=== PATIENT | male | born 1940 | race Caucasian/White ===

== ENCOUNTER 2019-09-16 09:30 | Outpatient (AMB) | payer MEDICARE, MEDICAID, SELFPAY ==
[2019-09-16 09:30] VITALS: BMI 20.9
--- NOTE | 2019-09-16 09:30 | CWCCLIPHA ---
Review of Systems Const Constitutional: Reports daytime sleepiness, Reports difficulty sleeping and Reports lethargy Resp Respiratory: Reports cough and Reports excessive phlegm production GI Gastrointestinal: Reports loose stools Genitourinary: Reports penile discharge and Reports other (redness to penis) Skin/Breast Skin/Breast: Reports lesions, Reports nail changes and Reports redness Psych Psychiatric: Reports abnormal sleep pattern, Reports anxiety and Reports panic attacks Exam Const General: cooperative Orientation: alert Neuro General: patient alert Cognition: normal cognition Speech: speech normal Psych Mood: congruent mood Affect: normal affect Speech and Movement: speech and movement normal Attitude: cooperative Thought Process: normal Thought Content: normal Judgment: judgment good Supplemental Info Assessment and Plan: 1. Oropharyngeal CA, recurrence. Patient and 's understanding of state of disease and treatment contradictory to findings in 07/16/2019 PET scan as well as Dr. Thomas's most recent progress note. Read select PET findings, including smaller measurements of mass as well as finding of more subtle diffuse hypermetabolic activity in oropharynx as well as Dr. Thomas's plan to continue Keytruda. became emotional at hearing the PET findings and was supported by RESEARCH FELLOW (please see RESEARCH FELLOW notes for additional discussion). Dr. eRynoso provided expectations for good treatment response based on previous treatment response but no definite range of life expectancy. Recommended contact JENY Robles, to discuss missed Keytruda doses and scheduling. Encouraged to contact Palliative team if she needed help interpreting patient's results or treatment plan as complained of receiving limited or complex medical information. Provide informational and emotional support as needed. 2. Excessive phlegm production, cough. Chronic. Patient is expectorating phlegm with difficulty which is causing distress and anxiety leading to semi-frequent panic attacks at a rate of 2 episodes every other night and inducing insomnia. Patient has not been utilizing suctioning and has nocturnal O2 which needs to be set up. has an appointment for assistance with O2 setup. denies having access to an RT at this time. Contacted Germán Butcher RCP, for a consultation for effective cough or suctioning technique; awaiting response. 3. Need to for clarification on medications. Patient's reported a refill of Clindamycin for unknown indications as well as confusion on treatment plan for genital redness and discharge. Medical records obtained from [facility] state Clindamycin was re-ordered for oral cellulitis (lips) and fluconazole PO and ketoconazole topical for balanitis. Relayed findings to Thu via phone. 4. Malignant pain. Controlled on MSO4 drops. Continue current management. 5. Pedal rash. Improving. Currently on silver sulfadiazine and mupirocin creams as well as zinc and vitamin C. Defer management to podiatry and PCP. 6. Nocturnal heartburn. Resolved with reduction of volume of free water per GT infusion session from 1 full to 0.5 bag (0.5 Liter). See RD notes for additional discussion. 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 Felton is a 79 YO M who is on a telephone encounter today with his , Thu, for routine Palliative Care follow-up. The patient states about a month ago his G-tube came out and it was replaced at the ED. He now has continuous pain and a red area the size of a half-dollar around his G-Tube site with a small amount of bloody discharge. Thu states she needs to make an appointment with the surgeon, Dr. Vasquez, to look at the G-Tube area, but he is only in the office on Fridays. He states he has been using morphine drops for pain and that it has been effective. Patient states that he has developed a hernia to the right of the G-tube site from coughing, which has not yet been evaluated. He last saw his PCP last week and was given fluconazole tablets, a refill on clindamycin 300mg and ketoconazole cream. Thu states she does not know what they are for, but she was told he has an infection in his whole body and that his penis is very red and swollen. She states they were told it was a diaper rash from wearing incontinence briefs. The patient states that there is copious discharge from the penile skin and denies the discharge being urinary incontinence. Thu states she was also instructed to steel pickler Zinc and Vitamin C. She states they are also expecting a nebulizer for albuterol and they have an oxygen source for nighttime use but someone is coming out to show her how to set it up. She states she is now exchanging the patient's trache canula BID and she is repeatedly being sent the wrong cannula. She states concern that reusing the same two cannulas is weakening them. She states she sent a photo of the correct cannula to the [employer] today. She states the patient has been loosing his finger and toe nails which is being attributed to Keytruda. She states the sores on the bottom of the patient's feet are healing under the care of a u.s. representative and there are now just a couple of spots. The patient c/o copious amounts of phlegm that he is able to bring up with difficulty which causes him distress. He states he is afraid to go to sleep because of these cough attacks, which occur about 2 times every other night. The patient states that coughing up mucus accounts for 90% of his problems sleeping. Thu states the patient has been wanting her home alot. Thu states that she had not been recently using suctioning but is considering returning to it to help with the patient's phlegm. The patient denies heartburn, nausea and constipation. He states his stools have been loose. Thu states she has divided his free water hydration to 1/2 bag (0.5 L) TID with his medications. Thu states the patient has been sleeping alot. She states she was not able to present at the last encounter at the [facility] and understands that the lung nodules are shrinking but she and the patient state the one in his neck is growing. She tried to discuss the patient's missed Keytruda doses at the [facility] but was told he is done with treatment. The patient wants to know how long his life expectancy is for his decision making. The patient states he has been using his Morphine drops and they are working. Medication and Supplements Medication and Supplements: Clindamycin 300mg TID Fluconazole 200mg QD Ketoconazole cream Keytruda Lactulose 10g/15mL 15-30mL via GT QD PRN constipation Lidocaine cream Mupirocin 2% topical Prednisone 5mg 4 TS QD (was on 8 TS QD, started 07/20/19) Prednisone 20mg 2 T QD x 4 days (08/03/19) Silver sufadiazine cream AAA on feet Vitamin C Zinc Prescribed, not using: IBU 100mg/5mL 30mL via GT Q6H PP *CWC Office Visit complete CWC Offive Visit Complete CWC Visit Complete?: No
--- NOTE | 2019-09-16 09:31 | CWCCLINC_ITS ---
Vital Signs 09/16/19 09:30 Height 1.91 m Height Method Stated Weight 76.204 kg Weight Measurement Method Stated by Patient BMI 20.9 Oxygen Delivery Method Room Air Comment Patient's pain level is 0 out of 10, Dr. Reynoso made aware OP Palliative Care Referral source Referral Source: Follow-Up Visit (Pt Kyree Felton attended the interdisciplinary Palliative follow up meeting on 09/16/19 at 9:30 am over the phone with his Thu.) Changes in weight Weight Stable: Yes Usual Body weight time frame: 1 Month ago Weight Change Additional comment: Current stated weight: 168 lbs (reports measured at [facility] previous week Friday -09/08/19. Weight stable in past month. It reflect desirable weight gain of 10 lbs since 06/19/19 weight of 158 lbs. Nutritional Assessment Nutritional Assessment additional comments: Dx/PMH include: Oropharyngeal CA, (Metastatic/Recurrent), Aspiration Pneumonia, Tracheostomy, PEG, Cellulitis Pt states he has more good day than bad, he may have panic attack during days and night and he may be afraid to go to sleep at times. Kyree had PGT tube replaced 08/11/19 d/t GT falling out with forceful coughing. Pt reports some redness around the T stoma area and appear still leaking a bit. Pt will be f/u by Dr. Vasquez. Pt reports has swelling of ankle, getting better, has fungus on feet with rash, not able to get treatment and pt reports on Zinc and vitamin C supplement to protect skin integrity. Pt reports his color of urine is orange and it may a ttributed to Vit C or other meds. Pt does not have kidney dysfunction. Kyree is currently NPO, not able to tolerate oral feeding. Pt receives all nutrition and hydration needs via TF s/p Tracheotomy. Thu reports Kyree has been tolerating current TF well with Nepro 8 oz x2 cartons TID using gravity bag slow drip method and it takes about 1 hour per each feeding. Pt c/o late night heart burn with change of medication of Prednisone and meds was adjusted per Pharmacist Lula. Kyree also c/o some sporadic heart burn about 10 times over the year. Change of feeding to have 1 carton given in between breakfast and noon feeding was tried for few days. Thu reports pt later resumed previous feeding method with 2 carton each meals and tolerated well with no c/o of heart burn or other GI distress at this time. Kyree has no c/o constipation at this time, states has looser BM but not diarrhea. LBM was day prior on 09/15/19. Current TF formula provides 18 gm fiber per day and it is slightly below recommended daily fiber intake. Thu reports pt push fluid and hang 2 liter bag of water and delivered throughout the day in previous month. Prune juice was tried before but stated did not help. Thu reports now she has reduced total fluid given per day and used small amount of water flush after each feeding and given it with medication. Will continue follow fluid needs and electrolytes balance. Thu reports Pt still in bed a lot, may come out to kitchen area late night. Continue to encourage increase physical activities include walking from bedroom to kitchen, doing yard works, playing with granddaughter and doing stretches in moving legs or arms as tolerated. RD to monitor the medical progress and follow nutrition and hydration need Recommendations Recommendations additional comment: Continue current TF regimen (Nepro 2 carton x3 per day) and water flushes of 1.5 liter throughout the day. Follow-up Visit Follow up visit: Yes *CWC Office Visit complete CWC Offive Visit Complete CWC Visit Complete?: Yes
--- NOTE | 2019-09-17 09:41 | CWCCLINC_ITS ---
Vital Signs 09/16/19 09:30 Height 1.91 m Height Method Stated Weight 76.204 kg Weight Measurement Method Stated by Patient BMI 20.9 Oxygen Delivery Method Room Air Comment Patient's pain level is 0 out of 10, Dr. Reynoso made aware OP Palliative Care List Name, Facility and location of PCP: [facility] network; Dr. Morales; [place] Review of symptoms: redness to groin area; supplementing feeding only through G- tube; issues with trach supplies; sleeps a lot; poor energy level How would you rate your diet: Poor Do you have any of the following that interfere w/eating: Swallowing Misc Comments: Called at 9:36 am; Called Dr. Reynoso at 11:04 am; Conference call ended 11:14 am Email address: [email or web address] Telephone conference call was done due to no face to face appointments occurring at this time. Patient continues to see Dr. Morales at the [facility]. Patient?s last appointment was last week sometime. Patient continues to use [facility] on . Latest labs were done on 08/30/2019. Patient?s , Thu, states that his weight is 168 pounds which was taken last week at [facility]. Patient reports pain level is 0 out of 10. Patient is on room air. Thu stated that the patient has oxygen but is not using it at this time. Thu stated that there are no changes in medications but did receive refills of medications. Verbal head to toe assessment was completed over the phone. No shortness of breath is reported. Patient does have a productive cough. Patient states that it is greenish-lane in color and has a little red in it. Patient states that it is both thin and think in consistency, but is mainly thick. Patient reported that there is a large amount of mucus. Thu stated that the trach cannula will clog up and she is having to change it twice a day. Patient continues to have fungus over feet, foot doctor stated that it is finally healing up. Thu reported that the patient is losing both his toenails and his finger nails and has been told it is a reaction from treatment. Patient has swelling to the head of his penis and his neck is swelling. Thu reported that the g-tube is continuously painful and there is a small area, the size of a fifty cent piece that is red around the tube. Patient also said that it was a little bloody around it also. Thu and the patient reported a hernia that was possibly caused by too much coughing too hard. Thu also reported that the patient?s groin area is red and has been oozing, Dr. Morales had seen it and is aware. Prognosis: Fair Co-Morbitities: Cancer List Name, Facility and location of PCP: [facility]; Dr. Morales; [place] Prognosis: Fair Care Che Coordinator: Maliha Bolton date/time/location: 09/16/2019 at 9:30 am in the [facility] conference room on the conference phone Purpose of meeting: Palliative care follow up appointment/symptom management Participants in meeting and relationship: Kyree Jose Francisco Armendariz, Patient Thu, Patient?s Digna Hernandez, OFFAL ICER POULTRY Lula Arias, OFFAL ICER POULTRY student software developer intern Maliha Núñez, RN Lula Jason, PharmD Nuris Miller, Dietitian Dr. Curtis Reynoso joined conference call at the end of the discussion with the patient. How are patients wishes known: Patient cognitive/verbal Who is the decision maker for the patient: Patient Issues addressed: redness to groin area; supplementing feeding only through G- tube; issues with trach supplies; sleeps a lot; poor energy level Discussion/Outcomes/Follow-up: Thu stated that the patient is looking better than what he was looking like before. Thu stated that Dr. Morales had ordered oxygen at night and that the [email or web address] was sending someone out to set it up. There was also a nebulizer machine that was ordered. Thu had mentioned that the patient had developed a hernia and thinks it is from cough too hard. Thu said that she mentioned it to Dr. Reynoso last week and he recommended that they speak to Dr. Vasquez about it. Thu also stated that the G-tube was replaced in the ER about a month ago and that she needed to call and make an appointment to follow up with Dr. Vasquez about that. It was recommended that Thu call and to make an appointment to address both the g-tube and the hernia issues. Thu stated that she keeps getting sent the wrong trach tube. Thu stated that she had sent a picture of it today. Thu stated that the only nutrition that is going into the patient is the formula through the g-tube only, nothing by mouth. Thu states that he gets 6 cartons a day, breakfast, lunch and dinner, then gets a half bag of water with medications. Patient has no reports or nausea or vomiting. Last bowel movement was yesterday (09/15/2019) and is loose. No constipation is rep orted. Thu stated that the patient sleeps a lot and does not get out of bed unless it is for a doctor?s appointment. Thu stated that the patient?s energy level is poor and uses the walker due to being ?wobbly?. When Thu had asked the mixer blender about the next treatment, they had thought that he had completed his treatment. Thu stated that he had missed 4 or 5 treatments and thought that he had to continue. Thu was recommended to ask Dr. Thomas about it at the next follow up appointment, which is on 10/09/2019. Communication to other healthcare professionals: Made Dr. Reynoso aware of the patient?s issues. Please see IMANI Sawyer, Nuris, ELIZABETH and Lula, PharmD, notes for their recommendations for Dr. Reynoso. Review of symptoms management: Yes Symptom management recommnedations: see discussion Tenative date for F/U Patient family meeting: September 2019 List Name, Facility and location of PCP: [facility] care network; Dr. Jj Phelps *CWC Office Visit complete CWC Offive Visit Complete CWC Visit Complete?: No
--- NOTE | 2019-09-17 15:10 | CWCCLINC_ITS ---
Vital Signs 09/16/19 09:30 Height 1.91 m Height Method Stated Weight 76.204 kg Weight Measurement Method Stated by Patient BMI 20.9 Oxygen Delivery Method Room Air Comment Patient's pain level is 0 out of 10, Dr. Reynoso made aware OP Palliative Care List Name, Facility and location of PCP: [place], [place] Prognosis: Fair Who patient wants involved in care decisions: Patient has named his , Thu Felton, to be involved in his care decisions. 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 Learning needs: Motivational Home situation: Patient lives with his and two sons. Support System: Good Financial Status: Marginal Care Conf Coordinator: Shira Bolton date/time/location: 09/16/2019 9:30am [facility] conference room via phone call. 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 Curtis Reynoso How are patients wishes known: Patient cognitive/verbal Who is the decision maker for the patient: Patient Issues addressed: Low Energy Depression Anxiety/Panic Attacks Pending receipt of Tubbing for Trach-Picture sent to [facility] 09/15 Trouble with O2 Cannula-[facility] to do a home visit 09/15 from 3pm-5pm Pain around gtube-Appt with Dr. Vasquez on 09/21 at 11:30am Discussion/Outcomes/Follow-up: This is a 79 year old male who presented to his Palliative Care Follow-Up Meeting via phone conference along with his , Thu Felton. Patient?s reported patient was doing better at this time. Patient has O2 that was delivered through [facility]. The O2 was prescribed by Dr. Morales his PCP. Patient reported he has not used it because the nasal cannula was not staying. Thu reported Dr. Morales was supposed to send someone to assist. Patient also reported Dr. Morales ordered a Nebulizer they have not received. PERINATOLOGY PHYSICIAN offered to assist patient and address the issue by calling [facility]. PERINATOLOGY PHYSICIAN called [facility] and spoke to Marija, who reported patient could have a mask delivered if the nasal cannula was not working. PERINATOLOGY PHYSICIAN notified patient who declined the mask. Patient was describing what they needed that could help. PERINATOLOGY PHYSICIAN offered to do a conference call with Leoncio after the meeting so she can explain the equipment. PERINATOLOGY PHYSICIAN called patient?s after the Palliative meeting and also had Leoncio on the phone. PERINATOLOGY PHYSICIAN connected Thu with Marija from [facility]. Marija reported she would end out a tech between 3pm-5pm same day to assist them. Marija reported the received the order for the nebulizer, but they are waiting for the signed prescription from the doctor. Marija reported Dr. Morales?s er medical technician is aware. Patient continues to have problems with his Gtube with redness and pain in the area. Thu reported it was replaced about a month ago when he went to the ER. Patient reported he also developed a hernia next to the Gtube due to all the coughing he experiences. Thu reported she needs to schedule an appointment with Dr. Vasquez to have the Gtube assessed, but he was only in his office on Fridays. PERINATOLOGY PHYSICIAN assisted in making an appointment with approval from patient and . PERINATOLOGY PHYSICIAN called Dr. Vasquez?s office and was able to schedule patient an appointment for Friday, August, 2019 at 11:30am. PERINATOLOGY PHYSICIAN provided patient and his with the appointment time and day. Patient and patient reported feedings are going well. Thu reported patient has not received the correct tubbing for his trach since the last time we spoke. She reported she has been receiving shipments but they continue to send the incorrect tubbing. She reported one was sent yesterday 09/15/2019 but it was the wrong one. She reported she reached out to [facility] before our appointment and sent, Esther, a picture of the tubbing she needed. PERINATOLOGY PHYSICIAN was on the phone with patient after the PC meeting assisting with [facility] when patient reported she had just received a new package from [facility] and was opening it. She reported it did not have the correct tubbing. Patient reported she was going to call the company and speak to Esther to confirm she received the picture. Patient reported doing well on the trach. Patient reported she has gotten use to caring for it. Patient is no longer being followed by [facility]. Thu reported patient was discharged a week ago. Patient reported she is the only one doing the trach care. At this time, her sons are not involved due to not being home and working. She reported one of her sons did try and went in 1x to see how it was cared for. She reported she will try to get them in more to help, which would benefit her in doing self-care. Patient and reported energy levels are low. Patient is using his walker more due to being wobbly when walking. PERINATOLOGY PHYSICIAN reinforced use of DME to help prevent a fall and maintaining patient?s safety. Patient also now has a bedside commode. Patient reported patient is sleeping a lot. Thu reported patient only gets up to go to the doctor. Discussed with patient his mood. Patient appeared alert and oriented during the call. Patient reported he has good days and bad days. Thu reported that on his good days he stays in his room. Thu reported patient wants her around and does not like to be left alone. She reported he is never left alone, if she has to go to the store one of their sons is there. Patient reported that on his bad days he is scared to sleep at night due to fear of having a panic attack. Patient reported having them a couple times, but correlated it to the extreme coughing and mucus he experiences. Thu reported he is not lying flat during the night. They have not looked into purchasing a wedge pillow. Patient uses regular pillows at this time. Patient was recommended to use the suction during the day and especially during the night to address the mucus. Patient reported they had stopped before because very little would come out, but now they will try to see if using it again can help reduce the problem which in turn can reduce patient?s panic attacks. PERINATOLOGY PHYSICIAN recommended patient try to focus on his breathing and do deep breathing exercises. 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 Patient was not open to relaxation music or meditation apps. PERINATOLOGY PHYSICIAN will continue to monitor. Patient reported he has felt sad, but was not feeling sad at the moment. Patient reported patient is ?Just there? since he doesn?t do much other going to the doctor. She reported she spoke to him about it but he did not say anything. PERINATOLOGY PHYSICIAN explored patient?s feelings regarding his comments and patient stated ?I don?t care? meaning what his had just stated. Patient?s symptoms can be consistent with depression. Will continue to monitor. Patient has missed some chemo treatments due to his treatment placed on hold. Patient stated, ?I want to know how close I am to the end?. Patient reported it is something that he thinks about given his condition. PERINATOLOGY PHYSICIAN recommended speaking to his oncologist to help guide his decision making regarding treatments. Patient reported he does not know his options. PERINATOLOGY PHYSICIAN discussed with patient options he would have. Explained he can continue with treatment and further discuss with Dr. Thomas his oncologist on his recommendation as well as Dr. Reynoso. PERINATOLOGY PHYSICIAN provided education on hospice services, which he was aware due to previous discussions. Patient reported she does not believe patient is there yet. PERINATOLOGY PHYSICIAN provided active listening and feedback throughout the discussion. Shruthi Cotton discussed with patient the PET scan results done in June which indicated in the cancer in the throat and lungs. Both areas improved meaning patient has been responding to his cancer therapy. Processed with patient and their thoughts and feelings. Thu became emotional. PERINATOLOGY PHYSICIAN provided emotional support. Thu cried happy tears given the news. Patient reported he was happy. Patient declined thoughts of harming himself or others. PERINATOLOGY PHYSICIAN recommended patient implementing small goals in getting patient out of his room. PERINATOLOGY PHYSICIAN recommended going out for at least 30 minutes or even 15 minutes to start small. PERINATOLOGY PHYSICIAN explained he can go to the living room, outside, or the kitchen. Patient reported patient most likely would not do it. PERINATOLOGY PHYSICIAN discussed with patient and he reported he will try to make an effort. PERINATOLOGY PHYSICIAN also recommended doing small exercise while in bed or sitting down by doing movement in his legs and arms. Patient is able to assist his with ADL?s. She reported she helps him in the tub and he is able to bathe himself. Patient takes him to all his medical appointments. They are meeting basic needs and continues to attend food jackson. Continued to assess for caregiver burnout. Thu reported she is doing well at this time. She reported she is taking it day by day. She reported she has not felt stressed. She reported she has gotten the hang of caring for patient?s equipment. She reported she speaks to her sister over the phone. She reported her daughter is out of town, but calls her frequently. Thu is the primary caregiver for patient at this time and also receives IHSS. Will continue to recommend Thu to focus on self-care. See Maliha Núñez, RN note for further nursing evaluation and medical concerns. See Oliverio CottonD notes for recommendations on medications and medical concerns. See Nuris Miller Hose Builder notes for further recommendations and kristal nicholas on nutrition. Tenative date for F/U Patient family meeting: September 2019 Advanced Directive: No POLST Form: No Primary Medical Surrogate Decision Maker?: Yes List Name, Facility and location of PCP: [place], [place] *[facility] Office Visit complete [facility] Offive Visit Complete [facility] Visit Complete?: Yes
== END 2019-09-16 11:15 | disposition home or self-care (01) ==
LOC: HODCWC 10:17
PROVIDERS: PCP Radiology Therapeutic Radiology; Referring Provider Radiology Therapeutic Radiology; Visit Provider Radiology Therapeutic Radiology
DX: Z51.5 Encounter for palliative care (principal)

== ENCOUNTER → 2020-01-25 | Outpatient (BNVA) | payer MEDICARE, MEDICAID, SELFPAY | END | disposition home or self-care (01) | PROVIDERS: PCP Family Medicine; Visit Provider Radiology Therapeutic Radiology ==

== ENCOUNTER 2024-02-07 05:23 | Emergency (ER) | payer MEDICARE, MEDICAID, SELFPAY ==
[2024-02-07] VITALS (7 sets, daily range): BP systolic 104–118; BP diastolic 67–78; PULSE 63–83; RESP 17–20; TEMP 36.7–37.6; O2SAT 89–96; BMI 23.3
--- NOTE | 2024-02-07 05:36 | XR_ITS ---
Examination: PA chest single view Technique: Upright PA chest single view Exam date and time: February 07, 2024 0542 hrs. Comparison July 07, 2023 Indications: Coughing beginning 4 days ago. Findings: Bilateral fairly diffuse pneumonia Prominent hilar regions Right subclavian Port-A-Cath tip satisfactory position Normal heart size Impression: Bilateral fairly diffuse pneumonia
--- NOTE | 2024-02-07 05:36 | PD.EDRME ---
Rapid Medical Screening Exam [facility] Arrival date/time: 02/07/24 05:23 83MN with history of stage 4 SCC of the palate presents to ED with 4 days of cough and SOB. has similar symptoms. Chief Complaint: Flu Like Symptoms Vital signs: Vital Signs Temperature 98.1 F 02/07/24 05:32 Pulse Rate 83 02/07/24 05:32 Respiratory Rate 19 02/07/24 05:32 Blood Pressure 105/69 02/07/24 05:32 Pulse Oximetry (%) 93 L 02/07/24 05:32 Oxygen Delivery Method Room Air 02/07/24 05:32
[2024-02-07 06:39] LABS: Lactate (Lactic Acid) 1.5 mMol/L (0.4-2.0)
[2024-02-07 06:45] LABS: Basophils # (Auto) 0.1 Thou/mm3 (0.0-0.2); Basophils % (Auto) 1 % (0-2.5); Eosinophils # (Auto) 0.1 Thou/mm3 (0.0-0.5); Eosinophils % (Auto) 2 % (0-10); Hematocrit 43.1 % (41.0-53.0); Hemoglobin 14.4 g/dL (13.5-16.0); Immature Granulocytes % (Auto) 0 % (0-0); Immature Granulocytes Auto 0.02 Thou/mm3 (0.00-0.00); Lymphocytes # (Auto) 0.8 Thou/mm3 (1.0-4.8); Lymphocytes % (Auto) 9 % (10-50); Mean Corpuscular HGB Conc 33.4 g/dl (31.0-37.0); Mean Corpuscular Hemoglobin 32.1 pg (25.0-35.0); Mean Corpuscular Volume 96 fL (80-100); Monocytes # (Auto) 0.7 Thou/mm3 (0.0-0.8); Monocytes % (Auto) 8 % (0-12); Neutrophils # (Auto) 6.6 Thou/mm3 (1.8-7.7); Neutrophils % (Auto) 80 % (37-80); Nucleated Red Blood Cell % 0 /100 WBC (0); Platelet Count 222 Thou/mm3 (140-440); RDW Standard Deviation 46.5 fL (35.1-43.9); Red Blood Count 4.48 Miln/mm3 (4.50-5.90); White Blood Count 8.3 Thou/mm3 (3.8-10.6)
[2024-02-07 07:10] LABS: Alanine Aminotransferase 18 U/L (10-49); Albumin, Serum 3.9 gm/dL (3.4-4.8); Albumin/Globulin Ratio 1.3 (1.2-2.2); Alkaline Phosphatase 126 U/L (46-116); Anion Gap 5 (7-16); Aspartate Amino Transferase 23 U/L (0-34); BUN/Creatinine Ratio 19 Ratio (12-20); Bilirubin,Total 0.5 mg/dL (0.3-1.2); Blood Urea Nitrogen 19 mg/dL (9-23); Calcium 9.1 mg/dL (8.3-10.6); Calcium (Corrected) 9.2 mg/dL (8.5-10.1); Carbon Dioxide 28.7 mMol/L (20.0-31.0); Chloride 103 mMol/L (98-107); Estimated Creatinine Clearance 66.2 mL/min (>60); Glucose 99 mg/dL (74-106); Osmolality,Calculated 276 (275-295); Procalcitonin 0.11 ng/ml (0.0-0.49); Sodium 137 mMol/L (136-145); Total Protein 6.9 gm/dL (5.7-8.2); Troponin I < 0.020 ng/mL (0.0-0.045); eGFR > 60 See Note
--- NOTE | 2024-02-07 12:06 | XR_ITS ---
Examination: Abdomen AP single view Technique: AP portable supine abdomen, single view Exam date and time: February 07, 2024 1233 hrs. Indications: Unknown position gastrostomy tube Findings: The film is mislabeled left right There is opacification of gastrostomy tube with contrast in the stomach duodenal bulb and small bowel Impression: Gastrostomy tube satisfactory position
--- NOTE | 2024-02-07 12:08 | EDNOTE_ITS ---
Upper Respiratory Inf. 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 Patient's been having cough for the last 4 days associated with runny nose, shortness of breath, runny eyes. Severity of symptoms moderate. Patient denies any fever denies any chest pain or coughing. Patient also is requesting if I can change his G-tube since the last time it was change was 6 months ago and is not working well anymore. Patient denies any other complaints patient is not allowed to eat. Related Data Home Medications ?Medication ?Instructions ?Recorded ?Confirmed morphine concentrate 100 mg/5 mL 0.5 ml PO QID PRN Pain 09/24/21 09/04/23 (20 mg/mL) oral solution pantoprazole 40 mg tablet,delayed 40 mg PO DAILY 09/04/23 09/04/23 release sertraline 25 mg tablet 25 mg PO DAILY 09/04/23 09/04/23 Previous Rx's ?Medication ?Instructions ?Recorded apixaban 5 mg (74 tabs) tablets in 5 mg PO BID #74 tabs 09/03/22 a dose pack ([employer] DVT-PE Treat 30D Start) levofloxacin 750 mg tablet 750 mg PO Q24H 7 days #7 tabs 02/07/24 Allergies Allergy/AdvReac Type Severity Reaction Status Date / Time No Known Allergies Allergy Verified 02/07/24 05:24 Review of Systems Review of Systems Narrative Review of Systems: Review of system reviewed and within normal limits except mentioned in HPI ED Exam Narrative Physical exam: VITAL SIGNS: Reviewed. GENERAL APPEARANCE: Alert and interactive, follows commands, no acute distress, HEAD AND FACE: Non-traumatic. ENT: PERRL, pink conjunctivitis, eyelid no trauma, Mucous membrane moist. NECK: Supple, nontender, no nuchal rigidity. Trach intact, CHEST: No tenderness, no crepitus, no paradoxical movement, no retractions. LUNGS: Clear, well ventilated, symmetric, no rales, no wheezing, no ronchi, no stridor, good breath sounds bilaterally. HEART: Regular rate, regular rhythm, no murmur, no gallops. ABDOMEN: Soft, positive bowel sounds, nondistended, no guarding, nontender, no rebound, no masses, G-tube intact with redness around the G-tube site RECTAL: Deferred. GENITAL: Deferred. NEUROLOGICAL: Gross motor function intact sensory function intact, Appropriate for age. MUSCULOSKELETAL: low back nontender, full range of motion. EXTREMITIES: Nontender, full range of motion. SKIN: Color pink, dry, no rash, no lacerations, no abrasions, no contusions. LYMPHATICS: Deferred. Course Quality Measures none Orders Category Date Time Status Bedside COVID-19 Antigen Test NOW Care 02/07/24 05:36 Completed Bedside Influenza A&B Antigen Test NOW Care 02/07/24 05:36 Completed EKG (ED ONLY) *Do not use* NOW Care 02/07/24 05:36 Completed EKG (ED Only) Stat Exams 02/07/24 05:36 Ordered KUB [XR abdomen 1V] Stat Exams 02/07/24 12:06 Completed XR chest 1V portable Stat Exams 02/07/24 05:36 Completed CBC Stat Lab 02/07/24 06:33 Completed Comprehensive Metabolic Panel Stat Lab 02/07/24 06:33 Completed Lactate (Lactic Acid) Stat Lab 02/07/24 06:33 Completed Procalcitonin Stat Lab 02/07/24 06:33 Completed Troponin I Stat Lab 02/07/24 06:33 Completed Azithromycin Inj [Zithromax Inj] 500 mg Med 02/07/24 12:07 Discontinued Sodium Chloride 0.9% 250 ml [Ns] 250 ml IV X1 cefTRIAXone/D5w 1gm IV premix [Rocephin/D5w 1gm IV Med 02/07/24 12:06 Discontinued premix] 50 ml IV X1 Vital Signs Vital signs: Vital Signs Temperature 98.1 F 02/07/24 05:32 Pulse Rate 83 02/07/24 05:32 Respiratory Rate 19 02/07/24 05:32 Blood Pressure 105/69 02/07/24 05:32 Pulse Oximetry (%) 93 L 02/07/24 05:32 Oxygen Delivery Method Room Air 02/07/24 05:32 Upper Respiratory Infection MDM Narrative MDM Narrative:: 83-year-old male patient with 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 Patient's been having cough for the last 4 days associated with runny nose, shortness of breath, runny eyes. Severity of symptoms moderate. Patient denies any fever denies any chest pain or coughing. Patient also is requesting if I can change his G-tube since the last time it was change was 6 months ago and is not working well anymore. Patient denies any other complaints patient is not allowed to eat. G-tube was replaced by me, with no difficulty. Patient tolerated procedure well. Laboratory workup all came back with no leukocytosis, negative COVID elevated for flu, rest of the labs unremarkable. Patient chest x-ray showed diffuse bilateral pneumonia. X-ray of the abdomen post G-tube insertion showed G-tube in the right position. Patient was given ceftriaxone IV and Zithromax IV. Patient data External records reviewed:: None Clinical information provided by:: patient and family Social determinants that could affect healthcare access:: none (None) Patient has the following chronic illnesses:: Squamous cell carcinoma, abnormality, status post tracheostomy, status post G- tube placement How is presenting disease/condition affected by chronic disease/condition?: exacerbated by Evaluation data The following diagnostics were reviewed and interpreted by me:: lab results, radiology exam(s) and EKG tracing(s) Lab and/or radiology exams considered but not ordered:: None Interpretation Summary: EKG showed sinus rhythm, ventricular rate of 84 bpm, per interval 171 MS, no ST segment elevation depression noted. Laboratory workup all came back with no leukocytosis, negative COVID elevated for flu, rest of the labs unremarkable. Patient chest x-ray showed diffuse bilateral pneumonia. X-ray of the abdomen post G-tube insertion showed G-tube in the right position. Medications / Prescriptions Medications or Prescriptions considered but not ordered:: None Medication administrations:: Medication Administration History Discontinued Medications Ceftriaxone Sodium/Dextrose (Rocephin/D5w 1gm Iv Premix) 50 mls @ 100 mls/hr IV X1 ONE Stop: 02/07/24 12:35 Last Infusion: 02/07/24 15:54 Dose: Infused Documented By: Admin: 02/07/24 13:14 Dose: 100 mls/hr Documented By: NASRIN Azithromycin 500 mg/ Sodium (Chloride) 250 mls @ 250 mls/hr IV X1 ONE Stop: 02/07/24 13:06 Last Infusion: 02/07/24 15:54 Dose: Infused Documented By: Admin: 02/07/24 13:14 Dose: 250 mls/hr Documented By: NASRIN Ceftriaxone and Zithromax Consultations Consultation(s) initiated? (list below): No Diagnosis Upper Respiratory Differential Diagnosis: upper respiratory infection, bronchitis and other (Pneumonia) Most likely diagnosis given after review of the tests above:: Pneumonia Admission Indicated Admission indicated?: not indicated Admission Request Was there a request for admission?: No Disposition Plan Disposition Plan: Discharge Discharge Attestation Discharge Attestation: The patient and all family members were given an opportunity to ask questions and understood the discharge instructions. Discharge instructions specifically effects, indications for sooner follow up or return to the emergency department, and the expected course of current diagnosis. Patient condition: Stable Discharge Plan Plan Patient Disposition: HOME (Self Care) Disposition Comment: stable Prescriptions/Referrals Prescriptions/Med Rec: New levofloxacin 750 mg tablet 750 mg PO Q24H 7 Days Qty: 7 0RF No Action morphine concentrate 100 mg/5 mL (20 mg/mL) solution 0.5 ml PO QID PRN (Reason: Pain) Hold Instructions: Resume on 05/29/22. Patient Comments: TAKE 0.5 ML BY MOUTH EVERY 6 HOURS NEEDED Eliquis DVT-PE Treat 30D Start 5 mg (74 tabs) tablets,dose pack 5 mg PO BID Qty: 74 0RF pantoprazole 40 mg Tablet,Delayed Release (Dr/Ec) 40 mg PO DAILY sertraline 25 mg Tablet 25 mg PO DAILY Referrals: Fabian Morales MD [Primary Care Provider] - In 1 week Problem List Clinical Impression: PNA (pneumonia), Malfunction of gastrostomy tube Patient/Caregiver Discharge Instructions Discharge Activity: activity as tolerated Education Materials: Treating Pneumonia Additional Instructions: Thank you for the opportunity for serving you today. You are stable for discharged . You are advised to: Follow-up with your PCP in 1 to 2 days Return to ED for worsening of symptoms Increase oral fluids Take medication as prescribed Okay to use the G-tube Print Language: Portuguese Stand Alone Forms: Shima Award Info., Patient Portal Info Letter Attestation Attestation The patient was seen by the midlevel practitioner. I, the co-signing physician, was present during the entire ER visit. While I did not physically examine the patient, I was available for consultation as needed.
[2024-02-07] MEDS: AZITHROMYCIN INJ 500 MG in SODIUM CHLORIDE 0.9% 250 ML 250 ML 250 MG IV (13:14)
[2024-02-07] MEDS: cefTRIAXone/D5w 1gm IV premix 50 ML IV (13:14)
== END 2024-02-07 16:01 | disposition home or self-care (01) ==
PROVIDERS: Physician Assistant; Emergency Provider Emergency Medicine; PCP Family Medicine
DX: J18.9 Pneumonia, unspecified organism (principal); K94.23 Gastrostomy malfunction; I49.3 Ventricular premature depolarization
CPT/HCPCS: 36415; 71045; 74018; 80053; 83605; 84145; 84484; 85025; 87400; 87811; 93005; 99284; J0456; J0696; J7050

== ENCOUNTER → 2024-03-04 | Outpatient (CLI) | payer MEDICARE, MEDICAID, SELFPAY ==
--- NOTE | 2024-03-04 08:45 | XR_ITS ---
EXAMINATION: PET/CT FUSION SKULL TO THIGH EXAM DATE AND TIME: March 04, 2024 0947 hours Comparison September 25, 2023 INDICATIONS: Diagnosis head and neck cancer, post treatment restaging CTDI:vol (mGy) 7.54 DLP: (mGycm) 782.53 PROCEDURE: 15.83 mCi FDG was administered intravenously To allow for distribution and uptake of radiotracer, the patient was allowed to rest quietly in a shielded room. Imaging was performed on an integrated 16-slice PET/CT scanner, with scanning from the skull base to the mid thigh. Serum blood glucose at the time of the injection was measured 93 mg/dL. CT scanning was performed without oral or intravenous contrast material. FINDINGS: Head and Neck: There is no cher hypermetabolism in the neck. The visualized portions of the brain are normal in appearance on CT. Chest: There is no cher hypermetabolism in the chest. There are no pulmonary nodules. Abdomen and Pelvis: There is no cher hypermetabolism in retroperitoneal or pelvic chains. The spleen is normal in size and FDG avidity. Musculoskeletal: Marrow uptake is within normal range. IMPRESSION: No interval metastatic disease
== END | disposition home or self-care (01) ==
LOC: CDIM 08:29
PROVIDERS: PCP Family Medicine; Referring Provider Radiology Therapeutic Radiology; Visit Provider Radiology Therapeutic Radiology
DX: C10.3 Malignant neoplasm of posterior wall of oropharynx (principal)
CPT/HCPCS: 78815; A9552

== ENCOUNTER 2024-03-29 11:05 | Outpatient (RCR) | payer MEDICARE, MEDICAID, SELFPAY ==
--- NOTE | 2024-04-02 10:25 | CTCFLWUP_ITS ---
[facility] [address] [place], [place] [address] FOLLOW-UP NOTE Date: 03/29/2024 MR#: [id number] Name: BRANDAN GAYLE : 1940 Account #: ?? 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 Initially treated with radiation and chemo August 15 through September 16 with good response clinically and r adiographically. Recurrence noted right neck following FNA 03/07/2019 and subsequently noted to have mediastinal and estevan ng nodules. Had additional systemic therapy with good response. PET scan 06/12/2023 revealed prominent mass left oropharynx. Because it appeared localized additional rates to be 6000 cGy completed 01/13/2024. Posttreatment PET 03/04/2024 showed good response. Visualized area of previous uptake in oropharynx a ppeared normal now. Still having some discomfort in his neck and the G-tube site. 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 #2. prior treatment chemoradiation with good response 2018. Subsequent treatment for recurrence with chemo and most recently radiotherapy oropharynx completed December 2013 with most recent PET showing no active disease. #3. refilled his morphine liquid. Will see him in 3 months for another checkup. #4. Urged him to see his primary care physician Dr. Morales. Cc: [facility] Fabian Morales MD Electronically signed by: Curtis Reynoso M.D. 04/02/2024 10:23 AM
== END 2024-03-30 23:59 | disposition home or self-care (01) ==
LOC: SCTC 11:05
PROVIDERS: PCP Family Medicine; Referring Provider Family Medicine; Visit Provider Radiology Therapeutic Radiology
DX: C10.9 Malignant neoplasm of oropharynx, unspecified (principal); C78.00 Secondary malignant neoplasm of unspecified lung; Z93.1 Gastrostomy status; Z92.3 Personal history of irradiation
CPT/HCPCS: 99212; G0463

== ENCOUNTER 2024-06-15 13:21 | Outpatient (RCR) | payer OTHER, SELFPAY ==
[2024-06-14 16:25] LABS: Basophils % (Auto) 1 % (0-2.5); Eosinophils # (Auto) 0.2 Thou/mm3 (0.0-0.5); Eosinophils % (Auto) 5 % (0-10); Hematocrit 45.8 % (41.0-53.0); Hemoglobin 15.5 g/dL (13.5-16.0); Immature Granulocytes % (Auto) 0 % (0-0); Lymphocytes # (Auto) 0.8 Thou/mm3 (1.0-4.8); Lymphocytes % (Auto) 25 % (10-50); Mean Corpuscular HGB Conc 33.8 g/dl (31.0-37.0); Mean Corpuscular Hemoglobin 32.8 pg (25.0-35.0); Mean Corpuscular Volume 97 fL (80-100); Monocytes # (Auto) 0.3 Thou/mm3 (0.0-0.8); Monocytes % (Auto) 11 % (0-12); Neutrophils # (Auto) 1.8 Thou/mm3 (1.8-7.7); Neutrophils % (Auto) 57 % (37-80); Nucleated Red Blood Cell % 0 /100 WBC (0); Platelet Count 125 Thou/mm3 (140-440); RDW Standard Deviation 49.3 fL (35.1-43.9); Red Blood Count 4.73 Miln/mm3 (4.50-5.90); White Blood Count 3.2 Thou/mm3 (3.8-10.6)
[2024-06-14 16:49] LABS: Alanine Aminotransferase 91 U/L (10-49); Albumin, Serum 3.6 gm/dL (3.4-4.8); Albumin/Globulin Ratio 1.3 (1.2-2.2); Alkaline Phosphatase 132 U/L (46-116); Anion Gap 10 (7-16); Aspartate Amino Transferase 115 U/L (0-34); BUN/Creatinine Ratio 21 Ratio (12-20); Bilirubin,Total 0.7 mg/dL (0.3-1.2); Blood Urea Nitrogen 23 mg/dL (9-23); Calcium 8.9 mg/dL (8.3-10.6); Calcium (Corrected) 9.2 mg/dL (8.5-10.1); Carbon Dioxide 28.7 mMol/L (20.0-31.0); Chloride 103 mMol/L (98-107); Creatinine (Component) 1.1 mg/dL (0.6-1.3); Globulin 2.8 gm/dL (2.3-3.5); Glucose 106 mg/dL (74-106); Osmolality,Calculated 286 (275-295); Potassium 3.4 mMol/L (3.4-5.1); Sodium 142 mMol/L (136-145); Total Protein 6.4 gm/dL (5.7-8.2); eGFR > 60 See Note
--- NOTE | 2024-06-15 14:23 | CTCFLWUP_ITS ---
Patient: KYREE GAYLE : 1940 Page 2 of 10 FOLLOW UP NOTE DATE OF SERVICE: 06/15/2024 NAME: KYREE GAYLE ACCOUNT: [id number] : 1940 AGE: 83 INTERVAL HISTORY: Patient still have a tracheostomy tube. Patient also eat only through the PEG tube. 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 Patient was treated with pembrolizumab but was unable to tolerate pembrolizumab which caused significant rash on plantar aspects of both feet (04/14/2019?08/10/2019). Mr. Gayle was treated with carboplatin and docetaxel (11/10/2019 - 04/20/2020). Treated with cetuximab (05/11/2020 - 05/25/2020) unable to tolerate cetuximab which caused significant rash on the chest as well as on the face. Treated with single agent 5-FU (06/19/2020?08/31/2020) Treated with methotrexate (10/19/2020?06/12/2021) 06/27/[address] shows 30mm hypermetabolite focus Right tongue, 12mm focus anterior R. Carotid, and 13mm hypermetabolite R. tracheobronchial lymph node On methotrexate again since 07/17/2022?12/31/2022. Methotrexate discontinued due to progression The patient is started on single agent docetaxel 07/03/2023. REASON FOR TODAY?S VISIT: This is office follow-up visit. Mr. Gayle is here at [facility]. Since last visit he had a PET CT scan done which showed stable disease in the left oropharynx. He denies any pain in the neck. Denies any other complaints. Tolerating docetaxel well. 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 DATE OF DIAGNOSIS: STAGE/TNM: TREATMENT HISTORY: Care?Plan Start?Date Cycle Day Intent CARBOplatin?AUC?2?+?Radiation 08/11/2017 1 7 Curative?(adjuvant) Pembrolizumab?alone 04/14/2019 1 21 Palliative KEYTRUDA?200 08/10/2019 1 21 Palliative DOCEtaxel?40mg,?CARBO?AUC?2?weekly 11/10/2019 1 7 Palliative Mg?sul?2?gr 12/08/2019 1 1 Palliative KCL?40 12/15/2019 1 1 Palliative KCL?20 12/23/2019 1 1 Palliative Mg?sul?4?gr 01/20/2020 1 1 Palliative Cetuximab?400?mg?loading?to?250?mg?wkly 05/11/2020 1 7 Palliative 5FU?1000?mg/m2/d?civ?4?days 06/19/2020 1 21 Palliative Methotrexate?wkly 10/19/2020 1 7 Palliative DOCEtaxel?40?mg?(Flat?dose) 07/03/2023 1 7 Palliative HISTORY OF PRESENT ILLNESS: Kyree Gayle is a 83-year-old ENG speaking male with following history 06/19/2017: Patient had a mass biopsied from the soft palate. Pathology showed moderate to poorly differentiated squamous cell carcinoma with foci of keratinization. 07/11/2017: PET CT scan showed right hypermetabolic oral pharyngeal tumor measuring 28 x 13 x 14 mm in the supraglottic region. Bilateral internal carotid metastatic adenopathy was noted. Metastatic left supraclavicular lymph node was also present. No mediastinal adenopathy or hyper metabolic pulmonary nodules noted. No retroperitoneal adenopathy present. 08/11/2017?10/06/2017: Patient was treated with chemo radiation. He received 7000 cGy of radiation. For the chemotherapy he was on weekly carboplatin started 08/11/2017 and completed on 10/02/2017. 02/12/2019: PET CT scan showed recurrent right oral pharyngeal tumor mass measuring 35 x 22 mm in size. Interval metastatic right hyper metabolic internal carotid lymph node measuring 20 x 26 mm is also present. Interval mediastinal metastatic adenopathy as well as in to rule right lung metastatic pulmonary nodules were also noted. 03/05/2019: Patient had ultrasound-guided fine-needle aspiration of the right neck mass. Pathology showed P 16+ squamous cell carcinoma. PDL 1 study was not done. 03/17/2019: PDL 1 testing showed the tumor to be expressing 40%. 04/14/2019?08/10/2019: Patient was treated with pembrolizumab which was discontinued due to significant rash on the plantar aspect of both feet. 07/16/2019: PET CT scan? 06/27/[address] Fusion- skull to thigh 07/17/2022: Mr. Gayle is started back on methotrexate. 10/10/2022: PET CT fusion skull to thigh 02/04/2023?02/10/2023: Mr. Gayle was admitted to the hospital due to septic shock secondary to right lung pneumonia. Blood cultures were positive for Klebsiella and Morganella. He was treated with IV antibiotics. 02/13/2023: PET/CT scan? 06/12/2023: PET/CT scan 07/03/2023: Mr. Gayle is started on single agent weekly docetaxel. 09/27/2023: PET/CT scan? OTHER MEDICAL HISTORY/CONDITIONS: FAMILY HISTORY: SOCIAL HISTORY: MEDICATIONS: 1. cephALEXin - 250 mg 1 Capsule Three times a day 2. Eliquis - 5 mg 1 tab Twice a Day 3. levothyroxine - 25 mcg 1 tab Daily 4. midodrine - 10 mg 1 tab Twice a Day 5. morphine concentrate - 20 mg/mL 0.5 cc q6 Medications Last Reconciled by Olive Harvey MA on 06/15/2024 ALLERGIES: No Known Drug Allergies REVIEW OF SYSTEMS: A complete 14-point review of systems was performed and is negative except as noted in interval history. PHYSICAL EXAMINATION: VITAL SIGNS: Temperature?98, B/P?100/71, Oxygen?Saturation?95% Weight?187?lbs (Change?since?06/14/24:?2?lbs) PAIN: 0 - No pain ECOG Performance Status: 1 - Symptomatic; ambulatory; restricted in strenuous activity GENERAL APPEARANCE: Appears well, in no apparent distress, appropriately interactive. HEENT: Normocephalic, no temporal wasting, normal conjunctiva, no scleral icterus, normal hearing, lips without lesions, neck normal range of motion. Tracheostomy in the neck. CARDIOVASCULAR: Not assessed. PULMONARY: Normal respiratory effort, no respiratory distress or use of accessory muscles, speaking in full sentences, no tachypnea. EXTREMITIES: No pedal edema or cyanosis. SKIN: Normal skin appearance. NEUROLOGIC: Alert and oriented x4. PSHYCHIATRIC: Appropriate affect, mood normal, behavior normal, intact thought and speech. LABORATORY DATA: I have personally reviewed and interpreted each of the patient?s relevant lab tests, abnormal findings are below: Date 02/07/24 06/14/24 ??WHITE?BLOOD?COUNT?(Thou/mm3) 8.3 3.2?L ??RED?BLOOD?COUNT?(Miln/mm3) 4.48?L 4.73 ??HEMOGLOBIN?(gm/dl) 14.4 15.5 ??HEMATOCRIT?(%) 43.1 45.8 ??PLATELET?COUNT?(Thou/mm3) 222 125?L ??NEUTROPHILS?%,?AUTO?(%) 80 57 ??LYMPH?%,?AUTO?(%) 9?L 25 ??NEUTROPHILS,?AUTO?(Thou/mm3) 6.6 1.8 ??GLUCOSE,RANDOM?(mg/dL) 99 106 ??BLOOD?UREA?NITROGEN?(mg/dL) 19 23 ??CREATININE?(mg/dL) 1.00 1.10 ??SODIUM?(mmol/L) 137 142 ??POTASSIUM?(mmol/L) 4.0 3.4 ??CHLORIDE?(mmol/L) 103 103 ??CrCl?(CandG)?(ml/min) 67.23 61.45 ??AST/SGOT?(Unit/L) 23 115?H ??ALT/SGPT?(Unit/L) 18 91?H ??ALKALINE?PHOSPHATASE?(Unit/L) 126?H 132?H ??BILIRUBIN,?TOTAL?(mg/dL) 0.5 0.7 ??PROTEIN?TOTAL?(gm/dl) 6.9 6.4 ??ALBUMIN,?SERUM?(gm/dl) 3.9 3.6 ??GLOBULIN?(gm/dl) 3.0 2.8 ??ALBUMIN/GLOBULIN?RATIO 1.3 1.3 ??CALCIUM,?SERUM?(mg/dL) 9.1 8.9 ??CALCIUM?SERUM?(CORRECTED)?(mg/dL) 9.2 9.2 ASSESSMENT/PLAN: 1. 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 Progressed on single agent 5-FU. Pembrolizumab discontinued due to rash on the plantar aspect of both feet. The rash is resolved at this time. Unable to tolerate cetuximab due to significant rash on the face and chest. Previously progressed on carboplatin and Taxotere. Previously he was diagnosed with locally advanced disease and treated with chemoradiation as described above. S/P weekly IV methotrexate 10/19/20 through 06/12/2021 Patient has been getting PET CT scan since [address] scan done on 12/28/2021 negative for metastatic disease. PET CT Scan done 06/27/2022: shows 30mm focus R. tongue, 12mm focus R. carotid, 13mm R. tracheobrachial lymph node PET CT scan done 10/10/22 negative for metastatic disease. Last PET scan on 03/04/2024 is also negative Will repeat PET CT scan in another 6 months in August Will refer to ENT for possible reversal. Will refer to speech and swallow evaluation and therapy #2 transaminitis Patient do not take any oral diet and do not consume Tylenol or alcohol Will do ultrasound of the liver to evaluate 3 to 4 weeks with labs and ultrasound Will also check for alpha-fetoprotein ORDERS: Order # Description [id number] Comprehensive Metabolic Panel - 12 + CBC with Auto Diff [id number] Comprehensive Metabolic Panel - 12 + CBC with Auto Diff + [id number] AFP [id number] PSA [id number] MD Follow Up 4 Week [id number] PET/CT of Skull to mid-thigh for Restaging [id number] MD Follow Up 3 Months RETURN TO CLINIC: 4 weeks BILLING AND COMPLIANCE: I reviewed external records from providers outside my specialty as summarized above. I spent a total of 50 minutes on this patient?s care on the day of their visit excluding time spent related to any billed procedures. This time includes time spent with the patient as well as time spent documenting in the medical record, reviewing patients records and tests, obtaining history, placing orders, communicating with other healthcare professionals, counseling the patient, family or caregiver, and/or care coordination for the diagnoses above. Electronically Signed by: Von Alejandra MD T: 2:21 PM CC: Chantale?Sun,?JASMEET PCP: Fabian Morales Referring: Fabian Morales This document was completed utilizing speech recognition software. Grammatical errors, random word insertions, pronoun errors, and incomplete sentences are an occasional consequence of this system due to software limitations, ambient noise, and hardware issues. Any formal questions or concerns about the content, text or information contained within the body of this dictation should be directly addressed to the provider for clarification.
== END 2024-06-28 23:59 | disposition home or self-care (01) ==
LOC: SCTC 13:21
PROVIDERS: PCP Family Medicine; Referring Provider Family Medicine; Visit Provider Internal Medicine Hematology & Oncology
DX: C05.1 Malignant neoplasm of soft palate (principal); Z93.1 Gastrostomy status; Z93.0 Tracheostomy status; Z92.3 Personal history of irradiation; R74.01 Elevation of levels of liver transaminase levels; R59.0 Localized enlarged lymph nodes; R91.8 Other nonspecific abnormal finding of lung field
CPT/HCPCS: 36591; 80053; 85025; 99212; A4216; J0690; J1100; J1642; J2371; J2405; J3490; G0463

== ENCOUNTER 2024-06-16 14:46 | Inpatient (IN) | payer OTHER, MEDICAID, MEDICARE, SELFPAY ==
[2024-06-16 14:51] VITALS: PULSE 76; RESP 18; O2SAT 91; BMI 25.0
[2024-06-16 14:54] VITALS: BP 103/56; PULSE 70; RESP 19; TEMP 36.8; O2SAT 95
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
--- NOTE | 2024-06-16 15:44 | EKG_ITS ---
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: : 1940 Requested By: Florence Dempsey Order Number: [id number] Reading MD: Florence Dempsey Measurements Intervals Elsa Rate: 62 P: 17 UT: 183 QRS: -47 QRSD: 110 T: 59 QT: 393 QTc: 400 Interpretive Statements SINUS RHYTHM WITH FREQUENT VENTRICULAR PREMATURE COMPLEXES LOW QRS VOLTAGE IN EXTREMITY LEADS [QRS DEFLECTION < 0.5 mV IN LIMB LEADS] PATTERN CONSISTENT WITH PULMONARY DISEASE LEFT ANTERIOR FASCICULAR BLOCK [QRS AXIS <= -45, QR IN I, RS IN II] Compared to ECG 09/03/2023 09:19:48 Ventricular premature complex(es) now present Left anterior fascicular block now present Sinus bradycardia no longer present Sinus arrhythmia no longer present /store/S0/[id number]/ecg/[id number].pdf
--- NOTE | 2024-06-16 15:44 | XR_ITS ---
Examination: AP chest single view TECHNIQUE: AP portable upright chest single view Exam date and time: June 16, 2024, 1521 hours Comparison February 07, 2024 INDICATIONS: Patient fell today with injury to the chest, chest pain FINDINGS: Normal heart size. No pneumothorax. Accentuation interstitial markings. Atelectasis left lower lobe. Tracheostomy tube tip 5.5 cm above brendon. Right subclavian Port-A-Cath tip satisfactory position Clavicles ribs appear intact IMPRESSION: No pneumothorax or hemothorax
--- NOTE | 2024-06-16 15:44 | XR_ITS ---
Examination:Left hip AP, lateral, AP pelvis 3 views Technique: Hip AP lateral, AP pelvis, 3 views Exam date and time:2024 at 1521 hours INDICATIONS: Patient fell today with injury to left hip, left hip pain. FINDINGS: Acute impacted left subcapital hip fracture Severe osteopenia Right hip bones of the pelvis intact IMPRESSION: Acute impacted left subcapital hip fracture.
--- NOTE | 2024-06-16 15:44 | XR_ITS ---
Examination: CT brain head without contrast. 2-D sagittal coronal reconstructions Date and time of exam:June 16, 2024 1725 hours INDICATIONS: Onset headaches today, diagnosis head and neck cancer CTDI: vol (mGy):56.4 DLP: (mGycm):1065 Technique: Multiple CT axial sections of the brain have been obtained, 5 mm slice thickness. Contrast has not been administered. 2-D sagittal, coronal reconstructions have been obtained Low dose protocols were performed. One or more of the following dose reduction techniques were used; automated exposure control, adjustment of the mA and/or KV according to patient size, use of iterative reconstruction technique. Findings: No significant ventricular enlargement. Intra-axial or extra-axial hemorrhage density is not seen. No mass effect or midline shift Basal cisterns are not remarkable. Fourth ventricle is midline. Cranial vault intact. Impression: Negative for acute hemorrhage, mass effect or midline shift Acute right mastoiditis Right otitis media As clinically warranted, brain MRI postcontrast follow-up would best assess for early cerebellar cerebral metastatic disease
[2024-06-16 17:06] LABS: Basophils % (Auto) 1 % (0-2.5); Eosinophils # (Auto) 0.1 Thou/mm3 (0.0-0.5); Eosinophils % (Auto) 1 % (0-10); Hematocrit 43.8 % (41.0-53.0); Hemoglobin 14.7 g/dL (13.5-16.0); Immature Granulocytes % (Auto) 0 % (0-0); Immature Granulocytes Auto 0.02 Thou/mm3 (0.00-0.00); Lymphocytes # (Auto) 0.6 Thou/mm3 (1.0-4.8); Lymphocytes % (Auto) 12 % (10-50); Mean Corpuscular HGB Conc 33.6 g/dl (31.0-37.0); Mean Corpuscular Hemoglobin 32.6 pg (25.0-35.0); Mean Corpuscular Volume 97 fL (80-100); Monocytes # (Auto) 0.3 Thou/mm3 (0.0-0.8); Monocytes % (Auto) 6 % (0-12); Neutrophils # (Auto) 3.7 Thou/mm3 (1.8-7.7); Neutrophils % (Auto) 79 % (37-80); Nucleated Red Blood Cell % 0 /100 WBC (0); Platelet Count 94 Thou/mm3 (140-440); RDW Standard Deviation 50.3 fL (35.1-43.9); Red Blood Count 4.51 Miln/mm3 (4.50-5.90); White Blood Count 4.6 Thou/mm3 (3.8-10.6)
[2024-06-16 17:20] LABS: INR 1.1 (0.9-1.3); Partial Thromboplastin Time 25.6 Seconds (22.0-36.0); Prothrombin Time 11.9 Seconds (9.0-12.2)
[2024-06-16 17:24] LABS: Alanine Aminotransferase 80 U/L (10-49); Albumin, Serum 3.6 gm/dL (3.4-4.8); Albumin/Globulin Ratio 1.4 (1.2-2.2); Alkaline Phosphatase 127 U/L (46-116); Anion Gap 7 (7-16); Aspartate Amino Transferase 85 U/L (0-34); BUN/Creatinine Ratio 23 Ratio (12-20); Bilirubin,Total 0.6 mg/dL (0.3-1.2); Blood Urea Nitrogen 25 mg/dL (9-23); Calcium 9.4 mg/dL (8.3-10.6); Calcium (Corrected) 9.7 mg/dL (8.5-10.1); Carbon Dioxide 30.9 mMol/L (20.0-31.0); Chloride 106 mMol/L (98-107); Creatinine (Component) 1.1 mg/dL (0.6-1.3); Estimated Creatinine Clearance 60.2 mL/min (>60); Globulin 2.6 gm/dL (2.3-3.5); Glucose 118 mg/dL (74-106); Osmolality,Calculated 292 (275-295); Potassium 4.1 mMol/L (3.4-5.1); Sodium 144 mMol/L (136-145); Total Protein 6.2 gm/dL (5.7-8.2); eGFR > 60 See Note
--- NOTE | 2024-06-16 18:03 | XR_ITS ---
Examination: Left hip 2 views TECHNIQUE: Portable lateral left hip 2 views Examination date and time: June 16, 2024 1731 hours INDICATIONS: Patient fell today with injury to the hip, hip pain FINDINGS: Acute impacted left subcapital hip fracture No hip dislocation IMPRESSION: Acute impacted left subcapital fracture
--- NOTE | 2024-06-16 18:04 | PC.NURSE ---
PATIENT COMPLAINING OF PAIN 12/08. INFORMED ER PROVIDER AND RECEIVED VERBAL ORDER 0.5 MG DILAUDID.
[2024-06-16] MEDS: HYDROmorphone INJ 2 MG/ML VIAL 0.5 MG IVP (18:27)
[2024-06-16 18:51] VITALS: BP 123/79; PULSE 71; RESP 22; TEMP 36.9; O2SAT 99
[2024-06-16 19:47] LABS: Collection Type, Urine Clean Catch
[2024-06-16 20:14] LABS: Bilirubin,Urine Negative (Negative); Blood,Urine Negative (Negative); Clarity,Urine Clear (Clear/Hazy); Color,Urine Yellow (Lt Yel-Yel); Culture Indicated,Urine Not Indicated; Glucose, Urine Negative (Negative); Ketones,Urine Negative (Negative); Leukocyte Esterase,Urine Negative (Negative); Nitrite,Urine Negative (Negative); PH,Urine 6.5 (5.0-7.0); Protein,Urine Trace (Neg - Trace); RBC,Urine 4 /hpf (0-3); Specific Gravity,Urine 1.026 (1.001-1.035); Squamous Epithelial Cell,Urine < 1 /hpf (0-5); Urobilinogen,Urine Negative mg/dL (0.0-1.0); WBC,Urine 1 /hpf (0-5)
[2024-06-16 20:19] VITALS: BP 116/74; PULSE 68; RESP 16; O2SAT 95
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
[2024-06-16 22:01] VITALS: BP 104/63; PULSE 91; RESP 20; TEMP 36.9; O2SAT 96
[2024-06-17] VITALS (14 sets, daily range): BP systolic 76–119; BP diastolic 53–71; PULSE 59–84; RESP 16–20; TEMP 36.6–37.1; O2SAT 91–97; BMI 23.3
[2024-06-17] MEDS: HYDROmorphone INJ 2 MG/ML VIAL 0.25 MG IVP ×2 (01:31→17:02)
[2024-06-17 05:26] LABS: Basophils % (Auto) 0 % (0-2.5); Eosinophils # (Auto) 0.1 Thou/mm3 (0.0-0.5); Eosinophils % (Auto) 2 % (0-10); Hematocrit 43.2 % (41.0-53.0); Hemoglobin 14.3 g/dL (13.5-16.0); Immature Granulocytes % (Auto) 0 % (0-0); Immature Granulocytes Auto 0.01 Thou/mm3 (0.00-0.00); Lymphocytes # (Auto) 0.6 Thou/mm3 (1.0-4.8); Lymphocytes % (Auto) 10 % (10-50); Mean Corpuscular HGB Conc 33.1 g/dl (31.0-37.0); Mean Corpuscular Hemoglobin 32.4 pg (25.0-35.0); Mean Corpuscular Volume 98 fL (80-100); Monocytes # (Auto) 0.5 Thou/mm3 (0.0-0.8); Monocytes % (Auto) 8 % (0-12); Neutrophils # (Auto) 5.3 Thou/mm3 (1.8-7.7); Neutrophils % (Auto) 81 % (37-80); Nucleated Red Blood Cell % 0 /100 WBC (0); Platelet Count 104 Thou/mm3 (140-440); RDW Standard Deviation 49.9 fL (35.1-43.9); Red Blood Count 4.42 Miln/mm3 (4.50-5.90); White Blood Count 6.6 Thou/mm3 (3.8-10.6)
[2024-06-17 05:41] LABS: INR 1.1 (0.9-1.3); Partial Thromboplastin Time 27.4 Seconds (22.0-36.0); Prothrombin Time 11.9 Seconds (9.0-12.2)
[2024-06-17 05:55] LABS: Glucose Estimated Average 100 mg/dL (80-131); Hemoglobin A1C 5.1 % Hgb (4.8-6.0)
[2024-06-17 06:06] LABS: Alanine Aminotransferase 58 U/L (10-49); Albumin, Serum 3.2 gm/dL (3.4-4.8); Albumin/Globulin Ratio 1.3 (1.2-2.2); Alkaline Phosphatase 113 U/L (46-116); Anion Gap 8 (7-16); Aspartate Amino Transferase 55 U/L (0-34); BUN/Creatinine Ratio 22 Ratio (12-20); Bilirubin,Total 0.6 mg/dL (0.3-1.2); Blood Urea Nitrogen 24 mg/dL (9-23); Calcium 8.7 mg/dL (8.3-10.6); Calcium (Corrected) 9.3 mg/dL (8.5-10.1); Carbon Dioxide 30.3 mMol/L (20.0-31.0); Chloride 103 mMol/L (98-107); Cholesterol 158 mg/dL (132-200); Creatinine (Component) 1.1 mg/dL (0.6-1.3); Estimated Creatinine Clearance 60.2 mL/min (>60); Globulin 2.4 gm/dL (2.3-3.5); Glucose 153 mg/dL (74-106); HDL Cholesterol 40 mg/dL (40-60); LDL Cholesterol,Calculated 86 mg/dL (0-130); Magnesium 1.9 mg/dL (1.6-2.6); Osmolality,Calculated 288 (275-295); Phosphorous 2.9 mg/dL (2.4-5.1); Potassium 4.2 mMol/L (3.4-5.1); Sodium 141 mMol/L (136-145); Thyroid Stimulating Hormone 12.16 uIU/mL (0.55-4.78); Total Protein 5.6 gm/dL (5.7-8.2); Triglycerides 158 mg/dL (30-150); eGFR > 60 See Note
[2024-06-17] MEDS: LEVOTHYROXINE SODIUM 25 MCG TABLET GT (06:27)
[2024-06-17] MEDS: HYDROcodone/APAP 5/325 TABLET 1 TAB GT (06:27)
--- NOTE | 2024-06-17 06:38 | PC.NURSE ---
Called MD Marquez to request PO orders be switched for PEG tube administration. Per pt this is how he receives his meds at home. MD nye'd RN to switch route. Meds given. Pt tolerated well. PEG tube flushed without difficulty.
--- NOTE | 2024-06-17 07:42 | PC.NURSE ---
PT REPORTS THAT HIS PAIN IS BETTER AFTER PAIN MEDICATION, VSS STABLE ON TELE, CALL LR IN REACH, WILL CONTINUE W/POC
--- NOTE | 2024-06-17 09:38 | PC.DIETICIAN ---
Nutrition prescription Jevity 1.5 at 20 ml/hr via PEG tube by pump. Advance 10 ml every 8 hrs to goal rate of 65 ml/hr x 22 hrs. If no IV fluids, water flushes of 40 ml/hr (or per MD). Hold TF for one hour before and after levothyroxine administration
[2024-06-17] MEDS: RINGERS LACTATED 500 ML 500 ML 999 ML IV (09:44)
[2024-06-17] MEDS: Magnesium Sulfate 2 GM Ivpb 2 GM/50 ML BAG IV (09:45)
[2024-06-17] MEDS: HEPARIN SOD INJ 5000 UNIT/ML VIAL SC (09:45)
--- NOTE | 2024-06-17 09:52 | PC.CC ---
Patient is a 83 year-old male who presents to the hospital for a Hip Fracture. Елена YING made [id number] contact with patient. ASW introduced self, role, and reason for visit. At bedside was patient's Thu Felton who completed initial assessment with ASW. Patient's confirmed information on demographics. She reports it is just her and her living at home and she helps care for the patient. Patient's reports the patient ambulates with a walker at home and patient requires assistance with ADLs. Patient uses oxygen at home. Patient receives primary care with Fabian Morales and uses [facility] for prescription medications. Upon discharge the patient plans to return home with his . executive services administrator to follow up with any discharge needs.
--- NOTE | 2024-06-17 11:04 | PC.NURSE ---
CALLED PROVIDER PTS BP DROPPED AGAIN, PROVIDER GAVE VERBAL OVER PHONE TO GIVE REMAINDER OF 500 LR BOLUS
--- NOTE | 2024-06-17 11:06 | PC.NURSE ---
PT STATED HIS TRACH IS BOTHERING HIM, CALLED RT WHO WILL COME ASSESS IT.
[2024-06-17] MEDS: RINGERS LACTATED 1000 ML 1,000 ML 999 ML IV (11:08)
[2024-06-17] MEDS: MIDODRINE 5 MG TABLET 10 MG PO ×2 (14:11→21:26)
[2024-06-17] MEDS: AMPICILLIN/SULBAC INJ 3 GM in SODIUM CHLORIDE 0.9% (POP) 100 ML IV ×2 (16:21→23:47)
--- NOTE | 2024-06-17 17:30 | PC.NURSE ---
Per Dr. Figueroa stop subcutaneous heparin after midnight for surgery. Give last dose 2100.
--- NOTE | 2024-06-17 18:32 | PC.NURSE ---
Per pharmacist Jin hold this dose of unasyn and give next dose as last dose was given at 1621
--- NOTE | 2024-06-17 19:05 | PD.IMCONS ---
HPI Data of Consult Requesting Physician: Felipe Stearns MD Primary Care Provider: Physician No Primary/Family Consult Narrative History of present illness: This is an 82-year-old male with past medical history of stage IV squamous cell carcinoma the soft palate with mediastinal lymphadenopathy and right pulmonary mets status post tracheostomy and PEG, on Eliquis, pt was seen in the ER following a fall and evaluation revealed Left hip fracture cardiology clearance requested pt denies any cardiac history ; no chest pain ; EKG unremarkable ;troponin pending prior echo - shows normal EF Rpt echos pending cc:: cc: Felipe Stearns MD Meds Home Medications and Allergies Home Medications ?Medication ?Instructions ?Recorded ?Confirmed ?Type morphine concentrate 100 mg/5 mL 0.5 ml PO QID PRN Pain 09/24/21 09/04/23 History (20 mg/mL) oral solution pantoprazole 40 mg tablet,delayed 40 mg PO DAILY 09/04/23 09/04/23 History release sertraline 25 mg tablet 25 mg PO DAILY 09/04/23 09/04/23 History Allergies Allergy/AdvReac Type Severity Reaction Status Date / Time No Known Allergies Allergy Verified 06/16/24 14:51 Exam Vital Signs Temp Pulse Resp BP Pulse Ox O2 Del Method O2 Flow Rate 98.4 F 60 16 119/71 94 L Nasal Cannula 4 06/17/24 14:00 06/17/24 14:22 06/17/24 14:22 06/17/24 14:22 06/17/24 14:22 06/17/24 08:03 06/17/24 14:22 Routine HEENT Exam Head: Present normocephalic and atraumatic Eye: Present EOMI and PERRL ENT: Present mucous membranes moist Routine Neck Exam Neck: Present supple and trachea midline Routine Respiratory Exam Respiratory: Present chest non-tender, lungs clear, normal breath sounds and no resp distress Routine Cardiovascular Exam Cardiovascular: Present RRR Routine Abdominal Exam Abdominal: Present soft and normoactive bowel sounds Routine Extremities Exam Extremities: Present full ROM Routine Skin Exam Skin: Present intact, dry and warm Routine Neurological Exam Neurological: Present alert, oriented X3 and CN II-XII intact Routine Psychiatric Exam Psychiatric: Present normal affect and normal thought process Results Labs 06/17/24 04:15 06/17/24 04:15 Labs: Short CBC 06/17/24 Range/Units 04:15 WBC 6.6 D (3.8-10.6) Thou/mm3 Hgb 14.3 (13.5-16.0) g/dL Hct 43.2 (41.0-53.0) % Plt Count 104 L (140-440) Thou/mm3 BMP 06/17/24 04:15 Sodium 141 Potassium 4.2 Chloride 103 Carbon Dioxide 30.3 BUN 24 H Creatinine 1.1 Glucose 153 H Calcium 8.7 Liver Function 06/17/24 Range/Units 04:15 Total Bilirubin 0.6 (0.3-1.2) mg/dL AST 55 H (0-34) U/L ALT 58 H (10-49) U/L Alkaline Phosphatase 113 (46-116) U/L Albumin 3.2 L (3.4-4.8) gm/dL Urine 06/16/24 Range/Units 19:40 Urine Color Yellow (Lt Yel-Yel) Urine Clarity Clear (Clear/Hazy) Urine pH 6.5 (5.0-7.0) Ur Specific [place] 1.026 (1.001-1.035) Urine Protein Trace (Neg - Trace) Urine Glucose (UA) Negative (Negative) Assessment and Plan Assessment and plan (1) Femoral neck fracture: Status: Acute (2) Throat cancer: Status: Acute (3) Pre-operative cardiovascular examination: Status: Acute Additional Assessment & Plan Additional Plan: pt offers no cardiac history no cardiac symptoms EKG unremakable echo in the past unremarkable troponin pending pt hemodynamically stable
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
[2024-06-17 19:19] LABS: Troponin I < 0.020 ng/mL (0.0-0.045)
[2024-06-17] MEDS: MELATONIN 3 MG TABLET PO (21:50)
[2024-06-18] VITALS (22 sets, daily range): BP systolic 81–113; BP diastolic 52–83; PULSE 56–95; RESP 12–20; TEMP 36–36.6; O2SAT 92–99
--- NOTE | 2024-06-18 | ECHO_ITS ---
Transthoracic Echo Report Ht (in): 74 Wt (lb): 195 Exam Location: Port[facility] Status: Inpatient Cryptologic Linguist: SYBIL Marshall^^^^ Indications: Procedure Performed: BP: 124 / 72 HR: 65 Technical Quality: Very technically difficult study MEASUREMENTS (Male / Female) Normal Values 2D ECHO LV Ejection Fraction MOD 4C 63.4 % LV Cardiac Index MOD 4C 1288.2 cm?/min?m? LV Ejection Fraction 4C AL 64.1 % LV Cardiac Index 4C AL 1347.8 cm?/min?m? LA Volume Index 16.1 cm?/m? 16 - 28 cm?/m? DOPPLER AV Peak Velocity 143.0 cm/s AV Peak Gradient 8.2 mmHg AV Mean Gradient 4.0 mmHg AV Velocity Time Integral 32.2 cm LVOT Peak Velocity 92.4 cm/s LVOT Peak Gradient 3.4 mmHg LVOT Velocity Time Integral 24.2 cm MV Area PHT 2.6 cm? MR Peak Velocity 236.0 cm/s MR Peak Gradient 22.3 mmHg Mitral E Point Velocity 51.1 cm/s Mitral A Point Velocity 88.7 cm/s Mitral E to A Ratio 0.6 LV E' Lateral Velocity 7.7 cm/s Mitral E to LV E' Lateral Ratio 6.6 LV E' Septal Velocity 7.3 cm/s Mitral E to LV E' Septal Ratio 7.0 FINDINGS Left Ventricle Normal left ventricular size, wall thickness, systolic function with no obvious regional wall motion abnormalities. There is grade I diastolic dysfunction of the left ventricle (impaired relaxation pattern). The left ventricular ejection fraction is normal, estimated at 55-60%. Right Ventricle The right ventricle is normal in size and systolic function. The estimated right ventricular systolic pressure, 20 mmHg. Left Atrium The left atrium is normal by two-dimensional, color flow and Doppler imaging with no structural abnormalities, no thrombus formation present. Right Atrium The right atrium is normal by two-dimensional imaging, color flow and Doppler imaging with no structural abnormalities, no thrombus formation present. Atrial Septum The interatrial septum appears normal with no evidence of a shunt. Aorta The aorta is normal by two-dimensional, color flow and Doppler interrogation. Mitral Valve Trace to mild mitral regurgitation. Mild mitral annular calcification. Aortic Valve Aortic valve sclerosis. Tricuspid Valve There is mild tricuspid valve regurgitation. Pulmonic Valve Trivial pulmonic valve regurgitation. Vessels The pulmonary artery appears normal. The inferior vena cava pulmonary and hepatic veins appear normal. Pericardium The pericardium is normal by two-dimensional imaging. There is no significant pericardial effusion. CONCLUSIONS Indication: Cardiac Clearance Normal LV size and function with an EF 55-60%. Diastolic Dysfunction stage I. Normal RV size and function appears normal with RVSP 25-30 mmHg. Mild MR & MAC and Mild TR Mild Aortic valve sclerosis without stenosis. Oliverio Warrenumanmelitaa (Electronically Signed) Final Date: 18 June 2024 18:34
[2024-06-18] MEDS: AMPICILLIN/SULBAC INJ 3 GM in SODIUM CHLORIDE 0.9% (POP) 100 ML IV ×3 (05:56→17:05)
[2024-06-18] MEDS: SODIUM CHLORIDE 0.9% 500 ML 500 ML 999 ML IV (05:56)
[2024-06-18 06:06] LABS: Basophils % (Auto) 1 % (0-2.5); Eosinophils # (Auto) 0.3 Thou/mm3 (0.0-0.5); Eosinophils % (Auto) 5 % (0-10); Hematocrit 39.7 % (41.0-53.0); Hemoglobin 13.3 g/dL (13.5-16.0); Immature Granulocytes % (Auto) 0 % (0-0); Immature Granulocytes Auto 0.02 Thou/mm3 (0.00-0.00); Lymphocytes # (Auto) 0.6 Thou/mm3 (1.0-4.8); Lymphocytes % (Auto) 11 % (10-50); Mean Corpuscular HGB Conc 33.5 g/dl (31.0-37.0); Mean Corpuscular Hemoglobin 32.7 pg (25.0-35.0); Mean Corpuscular Volume 98 fL (80-100); Monocytes # (Auto) 0.4 Thou/mm3 (0.0-0.8); Monocytes % (Auto) 8 % (0-12); Neutrophils # (Auto) 4.1 Thou/mm3 (1.8-7.7); Neutrophils % (Auto) 76 % (37-80); Nucleated Red Blood Cell % 0 /100 WBC (0); Platelet Count 81 Thou/mm3 (140-440); RDW Standard Deviation 50.4 fL (35.1-43.9); Red Blood Count 4.07 Miln/mm3 (4.50-5.90); White Blood Count 5.4 Thou/mm3 (3.8-10.6)
[2024-06-18 06:24] LABS: Alanine Aminotransferase 39 U/L (10-49); Albumin, Serum 3.1 gm/dL (3.4-4.8); Albumin/Globulin Ratio 1.3 (1.2-2.2); Alkaline Phosphatase 98 U/L (46-116); Anion Gap 8 (7-16); Aspartate Amino Transferase 30 U/L (0-34); BUN/Creatinine Ratio 17 Ratio (12-20); Bilirubin,Total 1.2 mg/dL (0.3-1.2); Blood Urea Nitrogen 17 mg/dL (9-23); Calcium 8.6 mg/dL (8.3-10.6); Calcium (Corrected) 9.3 mg/dL (8.5-10.1); Carbon Dioxide 27.6 mMol/L (20.0-31.0); Chloride 106 mMol/L (98-107); Estimated Creatinine Clearance 66.2 mL/min (>60); Globulin 2.4 gm/dL (2.3-3.5); Glucose 108 mg/dL (74-106); Magnesium 1.9 mg/dL (1.6-2.6); Osmolality,Calculated 285 (275-295); Phosphorous 2.8 mg/dL (2.4-5.1); Potassium 3.7 mMol/L (3.4-5.1); Sodium 142 mMol/L (136-145); Total Protein 5.5 gm/dL (5.7-8.2); eGFR > 60 See Note
[2024-06-18 06:32] LABS: INR 1.1 (0.9-1.3); Partial Thromboplastin Time 27.7 Seconds (22.0-36.0)
--- NOTE | 2024-06-18 07:11 | XR_ITS ---
Examination: Left hip AP lateral 6 views Fluoroscopy Exam date and time: June 18, 2024 0845 hours INDICATIONS: Acute impacted left subcapital hip fracture June 16, 2024 TECHNIQUE AND FINDINGS: Operative reduction internal fixation left subcapital hip fracture Satisfactory alignment Fluoroscopy 30 seconds 6 spot fluoroscopic films IMPRESSION: Operative reduction internal fixation left subcapital hip fracture with satisfactory alignment
--- NOTE | 2024-06-18 08:50 | PD.SUROPNT ---
Date of Procedure 06/18/24 Pre Op Diagnosis left hip valgus impacted femoral neck fracture Post Op Diagnosis left hip valgus impacted femoral neck fracture Procedure left hip percutaneous hip screws Findings vaglus impacted femoral neck fracture Procedure Description Indications: The patient is a 83-year-old male with a left valgus impacted femoral neck fracture. We discussed nonoperative and operative options. We discussed hemiarthroplasty versus percutaneous hip screws. Given his medical history, they would like the more minimally invasive option. We Discussed the possibility of screw cut out and hardware failure and possible conversion total hip or hemiarthroplasty. The patient understands the risks like to proceed with surgery. We also discussed the risk of medical complications given his significant medical history Procedure in detail: The patient was moved to a fracture table. [employer] films were obtained on fluoroscopy and we confirmed that there was no displacement of the fracture. The patient was prepped and draped in the usual sterile fashion. A 1 inch incision was made on the lateral aspect of the hip. We ensured that we were at the level of the lesser or higher for all screw holes. We placed 3 screws in an inverted [place] pattern ensuring that we were within the bone and that the screw was not penetrating. We used cannulated screw set and first placed guidewires followed by drilling outer cortex. We then placed the final screws and hand tightened. The superior anterior screw did not have good bite and we thus converted a 6 5 to an 8 oh screw just for that screw. Irrigation was then performed. The fracture was closed with Vicryl. The superficial tissues were closed with Vicryl and Monocryl and a Prineo dressing was applied Postoperative plan: The patient will be weightbearing as tolerated. He should resume his Eliquis for DVT prophylaxis. Pathology / specimen None Pathology comment: none Estimated Blood Loss 150 Surgeon Guzman De La Cruz MD Surgical Staff Operation Date: 06/18/24 07:45 Case Staff Anesthesiologist: Jose Mackenzie RN First Assistant: Les Gibbons
--- NOTE | 2024-06-18 09:07 | SUR.PHASEI ---
0907: Pt. AAOx4, vitals stable, however pt. is throwing frequent PVC anesthesia provider, MD Mackenzie at bedside assessing pt., pt. denies chest pain/SOB, breathing unlabored, no complaint of pain or nasesa, dressing to left hip CDI, bilateral dorsalis pedis pulses strong and regular, cap refill to bilateral feet less than 3 seconds, pt. able to move bilateral legs, report received from Asad FERMIN and MD Mackenzie.
--- NOTE | 2024-06-18 09:15 | XR_ITS ---
Examination:Left hip AP, lateral, AP pelvis 3 views Technique: Hip AP lateral, AP pelvis, 3 views Exam date and time:June 18, 2024 0924 hours INDICATIONS: Postop reduction internal fixation left subcapital hip fracture today FINDINGS: Postop reduction internal fixation left subcapital hip fracture Satisfactory alignment Orthopedic hardware satisfactory position IMPRESSION: Postop reduction internal fixation left subcapital hip fracture with satisfactory alignment.
[2024-06-18] MEDS: fentaNYL CIT INJ 50 mCg/ML AMP 2ML 25 MCG IVP ×2 (09:27→09:35)
[2024-06-18] MEDS: MORPHINE SULF INJ 10 MG/ML VIAL 3 MG IVP (10:01)
--- NOTE | 2024-06-18 10:32 | PC.NURSE ---
dr. kumar aware of patient having runs of pvc after surgery. md states she was at bedside with patient. md states patient will be upgraded to tele. per md she will place furhter orders.
--- NOTE | 2024-06-18 10:42 | PC.SS ---
Follow up note: Patient is having surgery today. Patient admitted for hip fracture. Initial assessment states patient and prefer for patient to d/c home. Patient pending PT eval. Possible SNF vs HH
--- NOTE | 2024-06-18 10:50 | SUR.PHASEI ---
1050: Pt. AAOx4, vitals stable, Pt. however is still throwing PVC's, Hospitalists consulted and pt. is going to be moved to Tele and is to be given KCL and magnesium, hospitalists stated they will put the orders in, Estrellita FERMIN made aware. Pt. denies chest pain/SOB, xr taken of pt. hip, pt. tolerated xr well, pt. states pain is tolerable and denies nausea. Dressing to left hip CDI, no active bleed noted, bilateral dorsalis pedis pulses strong and regular, cap refill to bilateral feet less than 3 seconds, pt. able to move bilateral legs, gave report to Estrellita FERMIN prior to transfer to room 358. At arrival to PACU, pt. had frequent PVC's, MD Mackenzie provided 100mg of lidocaine and 0915. The medication helped with the PVC's for a short period of time, and then they started to reappear. Notified Hospitalist immediatley and they came to consult the pt. an 1020. While in PACU, pt. did have discomfort, pain medications were administered, however it caused the pt. to become hypotensive. MD Mackenzie was made aware and 100mg of Phenylephrine was administered by MD Mackenzie at 0937 as well as at 0955. Hospitalists and Estrellita FERMIN are aware of medications administered during pt. stay in PACU.
[2024-06-18] MEDS: Magnesium Sulfate 2 GM Ivpb 2 GM/50 ML BAG IV (11:07)
[2024-06-18] MEDS: POTASSIUM CHL 10 mEq IVPB 10 MEQ/100 ML BAG 100 MEQ IV ×2 (11:08→12:21)
[2024-06-18] MEDS: RINGERS LACTATED 1000 ML 1,000 ML 999 ML IV (11:09)
--- NOTE | 2024-06-18 12:15 | PC.NURSE ---
Spoke to Dr. Edgar. states start tube feeding now.
--- NOTE | 2024-06-18 13:00 | EKG_ITS ---
[facility] Test Date: 2024-06-18 Pat Name: BRANDAN GAYLE [facility] Gender: Male Pbx Repairer: ZION : [id number] Requested By: Bonilla Edgar Order Number: [id number] Reading MD: Bonilla Edgar Measurements Intervals [place] Rate: 71 P: 27 CO: 186 QRS: 19 QRSD: 100 T: 52 QT: 415 QTc: 453 Interpretive Statements SINUS RHYTHM WITH FREQUENT VENTRICULAR PREMATURE COMPLEXES LOW QRS VOLTAGE IN EXTREMITY LEADS ABNORMAL RHYTHM ECG Compared to ECG 06/16/2024 16:20:20 Left anterior fascicular block no longer present /store/S0/[id number]
[2024-06-18] MEDS: MIDODRINE 5 MG TABLET 10 MG PO ×2 (13:04→21:21)
[2024-06-18] MEDS: HYDROmorphone INJ 2 MG/ML VIAL 0.25 MG IVP (14:36)
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
[2024-06-18] MEDS: ALBUTEROL/IPRATROPIUM (Duoneb) RT SOL 3 ML NEBU INH (20:23)
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
[2024-06-19] VITALS (10 sets, daily range): BP systolic 90–109; BP diastolic 55–71; PULSE 47–96; RESP 18–25; TEMP 36.3–36.6; O2SAT 64–102
[2024-06-19] MEDS: AMPICILLIN/SULBAC INJ 3 GM in SODIUM CHLORIDE 0.9% (POP) 100 ML IV ×5 (00:18→23:24)
[2024-06-19 05:40] LABS: Basophils % (Auto) 0 % (0-2.5); Eosinophils # (Auto) 0.1 Thou/mm3 (0.0-0.5); Eosinophils % (Auto) 2 % (0-10); Hematocrit 35.8 % (41.0-53.0); Immature Granulocytes % (Auto) 0 % (0-0); Immature Granulocytes Auto 0.02 Thou/mm3 (0.00-0.00); Lymphocytes # (Auto) 0.7 Thou/mm3 (1.0-4.8); Lymphocytes % (Auto) 9 % (10-50); Mean Corpuscular HGB Conc 33.5 g/dl (31.0-37.0); Mean Corpuscular Hemoglobin 32.5 pg (25.0-35.0); Mean Corpuscular Volume 97 fL (80-100); Monocytes # (Auto) 0.6 Thou/mm3 (0.0-0.8); Monocytes % (Auto) 8 % (0-12); Neutrophils # (Auto) 5.9 Thou/mm3 (1.8-7.7); Neutrophils % (Auto) 81 % (37-80); Nucleated Red Blood Cell % 0 /100 WBC (0); Platelet Count 104 Thou/mm3 (140-440); RDW Standard Deviation 49.2 fL (35.1-43.9); Red Blood Count 3.69 Miln/mm3 (4.50-5.90); White Blood Count 7.3 Thou/mm3 (3.8-10.6)
[2024-06-19] MEDS: MIDODRINE 5 MG TABLET 10 MG PO ×3 (05:53→21:00)
[2024-06-19] MEDS: LEVOTHYROXINE SODIUM 25 MCG TABLET 50 MCG GT (05:54)
[2024-06-19 05:59] LABS: Alanine Aminotransferase 23 U/L (10-49); Albumin, Serum 2.8 gm/dL (3.4-4.8); Albumin/Globulin Ratio 1.2 (1.2-2.2); Alkaline Phosphatase 79 U/L (46-116); Anion Gap 8 (7-16); Aspartate Amino Transferase 27 U/L (0-34); BUN/Creatinine Ratio 14 Ratio (12-20); Bilirubin,Total 0.7 mg/dL (0.3-1.2); Blood Urea Nitrogen 14 mg/dL (9-23); Calcium 8.3 mg/dL (8.3-10.6); Calcium (Corrected) 9.3 mg/dL (8.5-10.1); Carbon Dioxide 27.4 mMol/L (20.0-31.0); Chloride 106 mMol/L (98-107); Estimated Creatinine Clearance 66.2 mL/min (>60); Globulin 2.3 gm/dL (2.3-3.5); Glucose 139 mg/dL (74-106); Magnesium 1.9 mg/dL (1.6-2.6); Osmolality,Calculated 283 (275-295); Phosphorous 2.7 mg/dL (2.4-5.1); Potassium 4.1 mMol/L (3.4-5.1); Sodium 141 mMol/L (136-145); Total Protein 5.1 gm/dL (5.7-8.2); eGFR > 60 See Note
[2024-06-19] MEDS: APIXABAN 2.5 MG TABLET PO (08:39)
--- NOTE | 2024-06-19 09:39 | PC.NURSE ---
Spoke to Dr. Melton in regards to frequent bigeminy and pvcs. --NAVYA
[2024-06-19] MEDS: HYDROmorphone INJ 2 MG/ML VIAL 0.25 MG IVP ×2 (10:21→16:31)
--- NOTE | 2024-06-19 10:48 | PC.PT ---
attempted PT eval this AM. Hold eval per JENY Haro
--- NOTE | 2024-06-19 10:51 | PC.NURSE ---
Notified Dr. Melton of patient's run of pvc's on monitor. V/s remain stable b/p 90/52 hr 74, 97.0 resp 20. Patient alert, suctioned x2. Trach in place to blow by on 10L 40%.--JA
[2024-06-19] MEDS: Magnesium Sulfate 2 GM Ivpb 2 GM/50 ML BAG IV (13:34)
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
--- NOTE | 2024-06-19 14:26 | PC.NURSE ---
Dr Melton notified of hr in the 40s. b/p 97/55. Dr Melton at bedside.--Ja
--- NOTE | 2024-06-19 15:30 | PC.NURSE ---
ASSUMED CARE OF PATIENT
--- NOTE | 2024-06-19 20:27 | PD.IMCONS ---
HPI Data of Consult Requesting Physician: Nickolas Mock DO Primary Care Provider: Physician No Primary/Family Consult Narrative Reason for consult: PEG tube evaluation History of present illness: 83 years old male evaluated at request of the internal medicine team as the complained that she is having issues of pushing the feet down at home but is still working PEG tube Patient admitted with a fall and has a left subcapital fracture of the hip requiring ORIF Patient also on Eliquis at home for chronic atrial fibrillation cc:: cc: Nickolas Mock DO Review of Systems Review of Systems Systems Reviewed: All systems reviewed, normal except as documented Past Medical History Surgical History OTHER SURGICAL HX: As in the history of present illness Meds Home Medications and Allergies Home Medications ?Medication ?Instructions ?Recorded ?Confirmed ?Type morphine concentrate 100 mg/5 mL 0.5 ml PO QID PRN Pain 09/24/21 09/04/23 History (20 mg/mL) oral solution pantoprazole 40 mg tablet,delayed 40 mg PO DAILY 09/04/23 09/04/23 History release sertraline 25 mg tablet 25 mg PO DAILY 09/04/23 09/04/23 History Allergies Allergy/AdvReac Type Severity Reaction Status Date / Time No Known Allergies Allergy Verified 06/16/24 14:51 Exam Vital Signs Temp Pulse Resp BP Pulse Ox O2 Del Method O2 Flow Rate 97.4 F 47 L 19 92/64 102 H Trach Collar 11 06/19/24 16:00 06/19/24 16:00 06/19/24 16:00 06/19/24 13:43 06/19/24 16:00 06/19/24 12:00 06/19/24 12:00 FiO2 30 06/19/24 09:29 Routine Respiratory Exam Comments: Normal to auscultation Routine Abdominal Exam Comments: Soft nontender active bowel sound PEG tube in place Results Labs 06/19/24 04:59 06/19/24 04:59 Labs: Short CBC 06/19/24 Range/Units 04:59 WBC 7.3 (3.8-10.6) Thou/mm3 Hgb 12.0 L (13.5-16.0) g/dL Hct 35.8 L (41.0-53.0) % Plt Count 104 L D (140-440) Thou/mm3 BMP 06/19/24 04:59 Sodium 141 Potassium 4.1 Chloride 106 Carbon Dioxide 27.4 BUN 14 Creatinine 1.0 Glucose 139 H Calcium 8.3 Liver Function 06/19/24 Range/Units 04:59 Total Bilirubin 0.7 D (0.3-1.2) mg/dL AST 27 (0-34) U/L ALT 23 (10-49) U/L Alkaline Phosphatase 79 (46-116) U/L Albumin 2.8 L (3.4-4.8) gm/dL Assessment and Plan Additional Assessment & Plan Additional Plan: # PEG tube evaluation
[2024-06-19] MEDS: APIXABAN 2.5 MG TABLET 5 MG PO (20:56)
[2024-06-19] MEDS: HYDROcodone/APAP 5/325 TABLET 1 TAB GT (23:24)
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
[2024-06-20] VITALS (15 sets, daily range): BP systolic 97–141; BP diastolic 58–82; PULSE 53–96; RESP 14–92; TEMP 36.2–36.7; O2SAT 91–97
--- NOTE | 2024-06-20 00:28 | EKG_ITS ---
[facility] Test Date: 2024-06-20 Pat Name: BRANDAN GAYLE Department: Room: 58A Gender: Male Table Inspector: LIZETSTEPHON : 1940 Requested By: Alix Esparza Order Number: [id number] Reading MD: Alix Esparza Measurements Intervals [place] Rate: 66 P: 25 RI: 176 QRS: -17 QRSD: 98 T: 30 QT: 405 QTc: 427 Interpretive Statements SINUS RHYTHM WITH FREQUENT ECTOPIC PREMATURE COMPLEXES LOW QRS VOLTAGE IN EXTREMITY LEADS ABNORMAL RHYTHM ECG Compared to ECG 06/18/2024 14:00:56 Ventricular premature complex(es) no longer present /store/S0/[id number]/[id number].pdf
--- NOTE | 2024-06-20 00:28 | PC.NURSE ---
MD Esparza notified that monitor car operator called me and said pt is having trigeminy and couplets. Patient is awake and comfortable and not complaining of chest pain
[2024-06-20] MEDS: AMPICILLIN/SULBAC INJ 3 GM in SODIUM CHLORIDE 0.9% (POP) 100 ML IV ×4 (05:34→23:57)
[2024-06-20] MEDS: MIDODRINE 5 MG TABLET 10 MG PO ×3 (05:34→20:59)
[2024-06-20] MEDS: LEVOTHYROXINE SODIUM 25 MCG TABLET 50 MCG GT (05:35)
[2024-06-20 06:19] LABS: Basophils % (Auto) 1 % (0-2.5); Eosinophils # (Auto) 0.5 Thou/mm3 (0.0-0.5); Eosinophils % (Auto) 9 % (0-10); Hematocrit 36.2 % (41.0-53.0); Immature Granulocytes % (Auto) 0 % (0-0); Immature Granulocytes Auto 0.02 Thou/mm3 (0.00-0.00); Lymphocytes % (Auto) 19 % (10-50); Mean Corpuscular HGB Conc 33.1 g/dl (31.0-37.0); Mean Corpuscular Volume 100 fL (80-100); Monocytes # (Auto) 0.6 Thou/mm3 (0.0-0.8); Monocytes % (Auto) 12 % (0-12); Neutrophils % (Auto) 59 % (37-80); Nucleated Red Blood Cell % 0 /100 WBC (0); Platelet Count 119 Thou/mm3 (140-440); RDW Standard Deviation 51.2 fL (35.1-43.9); Red Blood Count 3.64 Miln/mm3 (4.50-5.90); White Blood Count 5.1 Thou/mm3 (3.8-10.6)
[2024-06-20 06:38] LABS: Anion Gap 6 (7-16); BUN/Creatinine Ratio 14 Ratio (12-20); Blood Urea Nitrogen 14 mg/dL (9-23); Calcium 8.1 mg/dL (8.3-10.6); Carbon Dioxide 32.3 mMol/L (20.0-31.0); Chloride 106 mMol/L (98-107); Estimated Creatinine Clearance 66.2 mL/min (>60); Glucose 92 mg/dL (74-106); Magnesium 1.8 mg/dL (1.6-2.6); Osmolality,Calculated 287 (275-295); Potassium 4.1 mMol/L (3.4-5.1); Sodium 144 mMol/L (136-145); eGFR > 60 See Note
[2024-06-20] MEDS: Magnesium Sulfate 4 GM Ivpb 4 GM/50 ML BAG IV (08:31)
[2024-06-20] MEDS: APIXABAN 2.5 MG TABLET 5 MG PO ×2 (08:31→20:59)
[2024-06-20] MEDS: HYDROmorphone INJ 2 MG/ML VIAL 0.25 MG IVP ×2 (09:09→19:42)
[2024-06-20] MEDS: HYDROcodone/APAP 5/325 TABLET 1 TAB GT ×2 (11:42→23:56)
--- NOTE | 2024-06-20 12:07 | PC.SS ---
MARKETING TECHNOLOGIST completed SNF referral and PASSAR, pt will need AUTH, MARKETING TECHNOLOGIST communicated with IMANI Diaz regarding referral. MARKETING TECHNOLOGIST to discuss snf placement preference with pt.
--- NOTE | 2024-06-20 12:36 | PC.SS ---
E BUSINESS MANAGER attempted to call for Intial assessment and ask for SNF preference but not answer.
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
[2024-06-21] VITALS (12 sets, daily range): BP systolic 93–151; BP diastolic 57–85; PULSE 50–95; RESP 15–20; TEMP 35.9–36.7; O2SAT 93–95
[2024-06-21] MEDS: MIDODRINE 5 MG TABLET 10 MG PO (05:17)
[2024-06-21] MEDS: LEVOTHYROXINE SODIUM 25 MCG TABLET 50 MCG GT (05:17)
[2024-06-21] MEDS: AMPICILLIN/SULBAC INJ 3 GM in SODIUM CHLORIDE 0.9% (POP) 100 ML IV ×4 (05:17→23:57)
[2024-06-21 06:07] LABS: Basophils # (Auto) 0.1 Thou/mm3 (0.0-0.2); Basophils % (Auto) 1 % (0-2.5); Eosinophils # (Auto) 0.4 Thou/mm3 (0.0-0.5); Eosinophils % (Auto) 10 % (0-10); Hematocrit 34.2 % (41.0-53.0); Hemoglobin 11.7 g/dL (13.5-16.0); Immature Granulocytes % (Auto) 0 % (0-0); Immature Granulocytes Auto 0.01 Thou/mm3 (0.00-0.00); Lymphocytes % (Auto) 23 % (10-50); Mean Corpuscular HGB Conc 34.2 g/dl (31.0-37.0); Mean Corpuscular Hemoglobin 33.4 pg (25.0-35.0); Mean Corpuscular Volume 98 fL (80-100); Monocytes # (Auto) 0.6 Thou/mm3 (0.0-0.8); Monocytes % (Auto) 13 % (0-12); Neutrophils # (Auto) 2.2 Thou/mm3 (1.8-7.7); Neutrophils % (Auto) 52 % (37-80); Nucleated Red Blood Cell % 0 /100 WBC (0); Platelet Count 147 Thou/mm3 (140-440); RDW Standard Deviation 49.1 fL (35.1-43.9); White Blood Count 4.2 Thou/mm3 (3.8-10.6)
[2024-06-21 06:19] LABS: Anion Gap 7 (7-16); BUN/Creatinine Ratio 16 Ratio (12-20); Blood Urea Nitrogen 14 mg/dL (9-23); Calcium 8.6 mg/dL (8.3-10.6); Carbon Dioxide 31.7 mMol/L (20.0-31.0); Chloride 105 mMol/L (98-107); Creatinine (Component) 0.9 mg/dL (0.6-1.3); Estimated Creatinine Clearance 73.6 mL/min (>60); Glucose 121 mg/dL (74-106); Magnesium 1.9 mg/dL (1.6-2.6); Osmolality,Calculated 288 (275-295); Potassium 3.7 mMol/L (3.4-5.1); Sodium 144 mMol/L (136-145); eGFR > 60 See Note
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
[2024-06-21] MEDS: HYDROmorphone INJ 2 MG/ML VIAL 0.25 MG IVP ×2 (09:13→16:25)
[2024-06-21] MEDS: APIXABAN 2.5 MG TABLET 5 MG PO ×2 (09:19→20:56)
--- NOTE | 2024-06-21 09:27 | PC.SS ---
Addendum entered by Fatimah Rivera 06/21/24 09:50: SS follow up note; SS submitted authorization to [facility] for patient to discharge to [facility]. Original Note: SS follow up note; SS contacted patient's , Thu and provided SNF choices, she would like patient to discharge to [facility]. SS contacted Yasmine from [facility] and she is able to accept patient, however SS will need to submit Authorization. SS will fax to [facility].
[2024-06-21] MEDS: POTASSIUM CHLORIDE 10% 20 MEQ/15 ML UDC 40 MEQ GT (09:56)
[2024-06-21] MEDS: RINGERS LACTATED 1000 ML 500 ML 999 ML IV (09:58)
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
--- NOTE | 2024-06-21 12:22 | PC.SS ---
SS follow up note; SS was informed by Yasmine from [facility] that patient's IPA was [facility]. SS faxed clinicals to [facility] and attempted to contact [facility], MALIHA left Voicemail with contact number.
--- NOTE | 2024-06-21 16:05 | PC.SS ---
SS follow up note; SS has been in communication with Juliet from [employer]. [email or web address]. SS sent PT notes and Juliet informed SS that SNF level is being requested for patient.
[2024-06-21] MEDS: HYDROcodone/APAP 5/325 TABLET 1 TAB GT ×2 (18:44→22:53)
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
--- NOTE | 2024-06-21 22:07 | PD.IMOPNOTE ---
Date of Procedure 06/21/24 Pre Op Diagnosis Malfunctioning PEG tube Post Op Diagnosis Removal of the malfunctioning PEG tube replacement with a new PEG tube [place] 20 MARLIN tube Procedure Removal and placement of a new [place] 20 PEG tube Findings Patient was at the bedside. The current existing tube the balloon was deflated. Through the stoma already present a [place] 20 MARLIN tube was placed in position and the balloon was elevated with 10 cc of sterile water and secured in position Procedure Description As above Pathology / specimen None Pathology comment: No specimen Estimated Blood Loss 0 Surgeon Deedee Kirk MD Surgical Staff Operation Date: 06/18/24 07:45 Case Staff Anesthesiologist: Jose Mackenzie RN First Assistant: Les Gibbons Diagnosis Problem List Completed Was Problem List Reviewed/Reconciled?: No
[2024-06-22] VITALS (14 sets, daily range): BP systolic 104–132; BP diastolic 63–77; PULSE 56–72; RESP 12–20; TEMP 36.3–36.9; O2SAT 90–96; BMI 11.0
[2024-06-22] MEDS: MELATONIN 3 MG TABLET PO ×2 (01:23→21:23)
[2024-06-22] MEDS: AMPICILLIN/SULBAC INJ 3 GM in SODIUM CHLORIDE 0.9% (POP) 100 ML IV ×3 (05:14→18:20)
[2024-06-22] MEDS: LEVOTHYROXINE SODIUM 25 MCG TABLET 50 MCG GT (05:15)
[2024-06-22 06:21] LABS: Basophils % (Auto) 1 % (0-2.5); Eosinophils # (Auto) 0.3 Thou/mm3 (0.0-0.5); Eosinophils % (Auto) 8 % (0-10); Hematocrit 34.6 % (41.0-53.0); Hemoglobin 11.9 g/dL (13.5-16.0); Immature Granulocytes % (Auto) 0 % (0-0); Immature Granulocytes Auto 0.01 Thou/mm3 (0.00-0.00); Lymphocytes # (Auto) 0.9 Thou/mm3 (1.0-4.8); Lymphocytes % (Auto) 21 % (10-50); Mean Corpuscular HGB Conc 34.4 g/dl (31.0-37.0); Mean Corpuscular Hemoglobin 33.1 pg (25.0-35.0); Mean Corpuscular Volume 96 fL (80-100); Monocytes # (Auto) 0.4 Thou/mm3 (0.0-0.8); Monocytes % (Auto) 10 % (0-12); Neutrophils # (Auto) 2.4 Thou/mm3 (1.8-7.7); Neutrophils % (Auto) 59 % (37-80); Nucleated Red Blood Cell % 0 /100 WBC (0); Platelet Count 111 Thou/mm3 (140-440); RDW Standard Deviation 48.1 fL (35.1-43.9); Red Blood Count 3.59 Miln/mm3 (4.50-5.90); White Blood Count 4.1 Thou/mm3 (3.8-10.6)
[2024-06-22 06:40] LABS: Anion Gap 7 (7-16); Calcium 8.3 mg/dL (8.3-10.6); Carbon Dioxide 27.4 mMol/L (20.0-31.0); Chloride 106 mMol/L (98-107); Potassium 3.9 mMol/L (3.4-5.1); Sodium 140 mMol/L (136-145)
[2024-06-22 06:47] LABS: BUN/Creatinine Ratio 14 Ratio (12-20); Blood Urea Nitrogen 13 mg/dL (9-23); Creatinine (Component) 0.9 mg/dL (0.6-1.3); Estimated Creatinine Clearance 73.6 mL/min (>60); Glucose 143 mg/dL (74-106); Magnesium 1.8 mg/dL (1.6-2.6); Osmolality,Calculated 281 (275-295); Phosphorous 3.6 mg/dL (2.4-5.1); eGFR > 60 See Note
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
--- NOTE | 2024-06-22 09:20 | PC.NURSE ---
Dr requesting room air test for patient. Patient saturation 85% on room air. Placed blow-by back on to previous setting from RT.
[2024-06-22] MEDS: Magnesium Sulfate 4 GM Ivpb 4 GM/50 ML BAG IV (09:34)
[2024-06-22] MEDS: POTASSIUM CHLORIDE 10% 20 MEQ/15 ML UDC GT (09:35)
[2024-06-22] MEDS: APIXABAN 2.5 MG TABLET 5 MG PO ×2 (09:35→21:23)
[2024-06-22] MEDS: HYDROcodone/APAP 5/325 TABLET 1 TAB GT ×3 (09:36→16:41)
--- NOTE | 2024-06-22 11:44 | XR_ITS ---
Examination: AP chest single view TECHNIQUE: AP portable upright chest single view Exam date and time: June 22, 2024 1220 hours Comparison June 16, 2024 INDICATIONS: Shortness breath chest congestion today FINDINGS: Bibasilar pneumonia, significant left base Right subclavian Port-A-Cath tip satisfactory position Tracheostomy tube tip 5.4 cm above brendon Ectatic thoracic aorta IMPRESSION: Bibasilar pneumonia, significant left base
--- NOTE | 2024-06-22 12:25 | PC.SS ---
Addendum entered by Fatimah Rivera 06/22/24 14:28: SS contacted RT and informed them that [facility] RT met with patient at bedside and is requesting Room air before patient discharges to facility. SS contacted RT and updated her, RT verbalized understanding and informed SS she will perform 02 testing room air. Original Note: SS follow up note; Authorization is obtained, however Yasmine from [facility] informed SS they are not able to accept patient on 6L of . SS updated Team A. RT will go in and evaluate patient and attempt to wean down.
[2024-06-22] MEDS: MIDODRINE 5 MG TABLET 10 MG PO ×2 (14:11→21:23)
[2024-06-22] MEDS: FUROSEMIDE INJ 10 MG/ML VIAL 2 ML 20 MG IVP (14:37)
--- NOTE | 2024-06-22 16:06 | PC.SS ---
SS follow up note; Patient's 02 saturation are being monitored, patient will discharge tomorrow, Yasmine aware.
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
--- NOTE | 2024-06-22 18:42 | PC.NURSE ---
notified by [employer] of pt 02 at 86%. Upon assessment, pt was sleeping on RA. blowby 02 placed back on
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
[2024-06-23] VITALS (12 sets, daily range): BP systolic 94–110; BP diastolic 55–64; PULSE 53–67; RESP 10–20; TEMP 36.2–37.2; O2SAT 91–95
--- NOTE | 2024-06-23 00:01 | PC.NURSE ---
Patient sleeping, O2 sat dropped to 85% on room air. Supplemental O2 at 4L thru BB given, saturation up to 94%.
[2024-06-23] MEDS: AMPICILLIN/SULBAC INJ 3 GM in SODIUM CHLORIDE 0.9% (POP) 100 ML IV ×4 (00:09→17:45)
[2024-06-23] MEDS: MIDODRINE 5 MG TABLET 10 MG PO ×2 (05:14→13:44)
[2024-06-23] MEDS: LEVOTHYROXINE SODIUM 25 MCG TABLET 50 MCG GT (05:15)
[2024-06-23 05:48] LABS: Basophils # (Auto) 0.1 Thou/mm3 (0.0-0.2); Basophils % (Auto) 2 % (0-2.5); Eosinophils # (Auto) 0.3 Thou/mm3 (0.0-0.5); Eosinophils % (Auto) 7 % (0-10); Hematocrit 35.3 % (41.0-53.0); Immature Granulocytes % (Auto) 0 % (0-0); Immature Granulocytes Auto 0.01 Thou/mm3 (0.00-0.00); Lymphocytes # (Auto) 0.9 Thou/mm3 (1.0-4.8); Lymphocytes % (Auto) 20 % (10-50); Mean Corpuscular Hemoglobin 32.5 pg (25.0-35.0); Mean Corpuscular Volume 96 fL (80-100); Monocytes # (Auto) 0.5 Thou/mm3 (0.0-0.8); Monocytes % (Auto) 10 % (0-12); Neutrophils # (Auto) 2.8 Thou/mm3 (1.8-7.7); Neutrophils % (Auto) 62 % (37-80); Nucleated Red Blood Cell % 0 /100 WBC (0); Platelet Count 161 Thou/mm3 (140-440); RDW Standard Deviation 47.6 fL (35.1-43.9); Red Blood Count 3.69 Miln/mm3 (4.50-5.90); White Blood Count 4.6 Thou/mm3 (3.8-10.6)
[2024-06-23 06:27] LABS: Alanine Aminotransferase 16 U/L (10-49); Albumin, Serum 3.1 gm/dL (3.4-4.8); Albumin/Globulin Ratio 1.3 (1.2-2.2); Alkaline Phosphatase 78 U/L (46-116); Anion Gap 8 (7-16); Aspartate Amino Transferase 21 U/L (0-34); BUN/Creatinine Ratio 16 Ratio (12-20); Bilirubin,Total 0.4 mg/dL (0.3-1.2); Blood Urea Nitrogen 16 mg/dL (9-23); Calcium 8.4 mg/dL (8.3-10.6); Calcium (Corrected) 9.1 mg/dL (8.5-10.1); Carbon Dioxide 30.4 mMol/L (20.0-31.0); Chloride 103 mMol/L (98-107); Estimated Creatinine Clearance 66.2 mL/min (>60); Globulin 2.3 gm/dL (2.3-3.5); Glucose 113 mg/dL (74-106); Magnesium 2.1 mg/dL (1.6-2.6); Osmolality,Calculated 283 (275-295); Phosphorous 3.8 mg/dL (2.4-5.1); Potassium 3.8 mMol/L (3.4-5.1); Sodium 141 mMol/L (136-145); Total Protein 5.4 gm/dL (5.7-8.2); eGFR > 60 See Note
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
[2024-06-23] MEDS: APIXABAN 2.5 MG TABLET 5 MG PO (08:00)
[2024-06-23] MEDS: HYDROcodone/APAP 5/325 TABLET 1 TAB GT ×3 (08:00→17:49)
--- NOTE | 2024-06-23 10:14 | PC.SS ---
Addendum entered by Elvia Agarwal [facility] [place] 06/23/24 16:41: New ETA 1800. [facility] moved transport due to city levels. mail clerk bills aware. Addendum entered by Elvia Milleriker [facility] [place] 06/23/24 16:07: mail clerk billsYasmine at [facility] and Dr. Edgar updated. Addendum entered by Elvia Milleriker [facility] [place] 06/23/24 15:55: ETA with [facility] 1700. Addendum entered by Elvia Milleriker [facility] [place] 06/23/24 12:32: SS update: attempted contact with patient's Thu to notify of d/c for today. Addendum entered by Elvia Milleriker [facility] [place] 06/23/24 12:30: [facility] Reference number:[id number]. Addendum entered by Elvia Milleriker [facility] [place] 06/23/24 12:21: Yasmine at [facility] informs she is able to accept the patient today. [facility] transport scheduled. Pending ETA. Original Note: SS follow up: spoke with Dr. Keane in regards to the d/c status as the patient is to d/c to [facility]. Pending rounds to determine if able to d/c today. Also contacted Yasmine at [facility] who informs she and her RT will come by to evaluate the patient at bed side to determine if able to accept the patient today.
[2024-06-23] MEDS: ALBUTEROL/IPRATROPIUM (Duoneb) RT SOL 3 ML NEBU INH (10:23)
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
--- NOTE | 2024-06-23 16:27 | ESDS_ITS ---
Planned Discharge Date 06/23/24 DS: Providers Provider Date of admission: 06/16/24 21:05 Primary care physician: Physician No Primary/Family Admitting Provider: Felipe Stearns MD Attending Provider on Admission: Dg Mcmullen MD Consults: 06/16/24 19:33 Consult to Orthopedic Stat Comment: Femoral neck fracture Consulting Provider: Guzman De La Cruz 06/16/24 21:14 Referral Registered Dietitian Routine Comment: 06/17/24 01:52 Consult to Cardiology Routine Comment: Consulting Provider: Hortencia Rodriguez Instructions: cardiology clearance 06/17/24 16:20 Referral Registered Dietitian Routine Comment: 06/18/24 16:06 Consult to Cardiology Routine Comment: Consulting Provider: Oliverio Mccormick 06/18/24 18:16 Referral Physical Therapy Routine Comment: Physician Instructions: 06/19/24 16:23 Consult to Gastroenterology Routine Comment: possible PEG exchange Consulting Provider: Deedee Kirk 06/20/24 10:56 Referral Physical Therapy Routine Comment: Physician Instructions: Attending Provider on DC: Bonilla Edgar MD Discharging Provider: Bonilla Edgar MD DS: Diagnosis Problem List Completed Was Problem List Reviewed/Reconciled?: Yes Hospital Course Hospital Course Hospital course: Mr. 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 Pt underwent cardiac clearance and ORIF L. hip fracture on 06/18/[address] De La Cruz, the orthopedic surgeon. Post surgery pt was doing well and underwent PT evaluation, who recommended pt goes to acute rehad for further PT. During hospitalization, it was discovered Pt's PEG tube was kicked and was old schoo therefore could not just replace the tube. GI was consulted and PEG tube was repalced successfullly. Pt is hemodynamcially stable, tolerating tube feeds, having regular bowel movements and saturating on room air via his trach tube and is discharged to SNF. Pt is advised if symptoms worse or return to promptly return to the ED. Discharge Recommendations -Continue taking Augmentin 875 twice daily for 6 more days to complete antibiotic course with mastoiditis -Take all medications as prescribed -Repeat thyroid panel in 4-6 weeks as your levothyroxine dose was increased to 50mcg -Continue taking Eliquis 5 mg twice daily for DVT prophylaxis -Follow-up with PCP as outpatient within 2 weeks -Follow-up with orthopedics, Dr. De La Cruz as outpatient in case, call 911 to the ED -Follow up with Orthopedics Teacher Dr. Mccormick outpatient -Patient will be discharged to SNF Hospitalization Diagnosis #Status post hip fracture repair, 06/18, POD4 #L acute femoral neck fracture s/p #Mechanical fall #Frequent PVCs/bigeminy #PEG tube dysfunction #Chronic hypotension #History of stage IV squamous cell carcinoma of soft palate #Status post trach #Status post PEG #Acute right mastoditis #acute otitis media #Hypothyroidism Assessment and plan discussed with my attending physician Dr. Benedict Edgar (PGY-1)- Internal medicine resident Time Spent with Patient Time attestation: Total time spent providing and/or coordinating discharge services: Time spent: Greater than 30 minutes Exam Vital Signs Temp Pulse Resp BP Pulse Ox O2 Del Method O2 Flow Rate 97.2 F 62 15 101/58 L 92 L Trach Collar 6 06/23/24 15:53 06/23/24 15:53 06/23/24 15:53 06/23/24 15:53 06/23/24 15:53 06/23/24 15:53 06/23/24 15:53 FiO2 30 06/23/24 10:25 Narrative Exam GENERAL: A&Ox3 . Awake elderly male, hard of hearing, Not in acute distress NEURO: no focal neurological deficits HEENT: Atraumatic, Normocephalic. mucous membranes moist. Eyes open, symmetrical, & clear, tracheostomy present HEART: Normal Heart Sounds LUNGS: Clear to auscultation with no wheezing or crackles. ABDOMEN: soft, non-distended, non-tender, bowel sounds heard, no guarding or rebound tenderness, PEG tube present SKIN: No Rash or ecchymoses, surgical site is clean and dry on left leg EXTREMITIES: No edema, tenderness, able to move all 4 extremities, pedal pulses palpated Discharge Plan Plan Patient Disposition: Xfer Skilled Nsg Fac (SNF) Disposition Comment: Stable Care Plan Goals: -Continue taking Augmentin 875 twice daily for 6 more days to complete antibiotic course with mastoiditis -Take all medications as prescribed -Repeat thyroid panel in 4-6 weeks as your levothyroxine dose was increased to 50mcg -Continue taking Eliquis 5 mg twice daily for DVT prophylaxis -Follow-up with PCP as outpatient within 2 weeks -Follow-up with orthopedics, Dr. De La Cruz as outpatient in case, call 911 to the ED -Follow up with Orthopedics Teacher Dr. Mccormick outpatient -Patient will be discharged to SNF Prescriptions/Referrals Prescriptions/Med Rec: New apixaban 5 mg tablet 5 mg PO BID 90 Days Qty: 180 0RF melatonin 3 mg Tablet 3 mg PO HS Qty: 60 0RF amoxicillin-pot clavulanate 875-125 mg tablet 1 tab PO BID 6 Days Qty: 12 0RF Continued morphine concentrate 100 mg/5 mL (20 mg/mL) solution 0.5 ml PO QID PRN (Reason: Pain) Patient Comments: TAKE 0.5 ML BY MOUTH EVERY 6 HOURS NEEDED midodrine 10 mg tablet 10 mg feeding tube TID Patient Comments: TAKE TWO TABLETS BY MOUTH THREE TIMES DAILY FOR THE HEART pantoprazole 40 mg Tablet,Delayed Release (Dr/Ec) 40 mg PO DAILY Discontinued Eliquis DVT-PE Treat 30D Start 5 mg (74 tabs) tablets,dose pack 5 mg PO BID Qty: 74 0RF sertraline 25 mg Tablet 25 mg PO DAILY Referrals: Oliverio Mccormick MD [Physician] - No Primary/Family,Physician [Primary Care Provider] - Patient/Caregiver Discharge Instructions Print Language: Bahamian Stand Alone Forms: Shima Award Info., Patient Portal Info Letter Discharge Order Discharge Orders: Discharge (Routine); Ordered 06/23/24 Ordered By: Bonilla Edgar Quality Discharge Quality Measures VTE prophylaxis Attestestation MD Attestation I reviewed labs, imaging, EKG, home medications and prior available records. Face to face evaluation was performed by me. I have personally examined the patient and discussed assessment and plan with the IM team. I reviewed the resident note and agree with the plan with exceptions as below. Left femoral fracture History of soft palate squamous cell carcinoma status post PEG tube Acute hypoxic respiratory failure: In the setting of bibasilar pneumonia versus vascular congestion, improved Atrial fibrillation, chronic Status post fracture repair on 06/18 Patient's oxygen requirements are improving. Ordered chest x-ray that showed vascular congestion versus pneumonia. Ordered IV Lasix. Augmentin upon discharge for otitis media and pneumonia GI was consulted and inserted a new PEG tube. Started tube feeds PT recommended SNF Continue Eliquis 5 mg twice daily Time spent is 40 minutes. More than 50% of the time was spent on patient education and coordination of care.
== END 2024-06-23 18:08 | disposition skilled nursing facility (03) | DRG 480 ==
LOC: SERX 19:46 → SERHOLD 21:29 → S3NX 06-17 15:36
PROVIDERS: Nurse Practitioner Family; Orthopaedic Surgery Adult Reconstructive Orthopaedic Surgery; Student in an Organized Health Care Education/Training Program; Admitting Provider Internal Medicine; Emergency Provider Family Medicine; Visit Provider Student in an Organized Health Care Education/Training Program
DX: S72.012A Unspecified intracapsular fracture of left femur, initial encounter for closed fracture (principal); J18.9 Pneumonia, unspecified organism; C78.01 Secondary malignant neoplasm of right lung; H70.001 Acute mastoiditis without complications, right ear; K94.23 Gastrostomy malfunction; I48.20 Chronic atrial fibrillation, unspecified; C14.0 Malignant neoplasm of pharynx, unspecified; R59.0 Localized enlarged lymph nodes; E03.9 Hypothyroidism, unspecified; H66.91 Otitis media, unspecified, right ear; G89.29 Other chronic pain; I10 Essential (primary) hypertension; I35.8 Other nonrheumatic aortic valve disorders; I95.9 Hypotension, unspecified; I49.3 Ventricular premature depolarization; I95.89 Other hypotension; Y93.55 Activity, bike riding; V18.0XXA Pedal cycle driver injured in noncollision transport accident in nontraffic accident, initial encounter; Z85.818 Personal history of malignant neoplasm of other sites of lip, oral cavity, and pharynx; Z79.01 Long term (current) use of anticoagulants; R62.7 Adult failure to thrive; Z74.01 Bed confinement status; Z79.899 Other long term (current) drug therapy; Z87.891 Personal history of nicotine dependence
CPT/HCPCS: 36415; 70450; 71045; 73501; 73502; 76000; 80048; 80053; 80061; 81001; 83036; 83605; 83735; 84100; 84439; 84443; 84484; 85025; 85610; 85730; 87081; 93005; 93306; 94640; 96365; 96366; 96372; 96375; 96376; 97162; 99285; A4217; A9270; C1713; J0295; J1643; J1940; J2270; J2704; J3010; J3475; J3480; J3490; J7040; J7120

== ENCOUNTER 2024-07-02 14:15 | Outpatient (AMB) | payer OTHER, MEDICAID, SELFPAY ==
--- NOTE | 2024-07-02 14:48 | PD.ORTHCLVIS ---
Vital signs 07/02/24 14:49 Height 1.88 m Height Method Stated Weight 88.451 kg Weight Measurement Method Standing Scale BMI 25.0 BP 91/59 L Blood Pressure Source Automatic Cuff Blood Pressure Location Left Upper Arm Position Sitting Respiration 19 Pulse 210 H Pulse Source Monitor Temp 96.8 F Temp Source Temporal Artery Scan Pulse Oximetry (%) 84 L Oxygen Delivery Method Room Air Med/Allergies Allergies & Medications Allergies No Known Allergies Allergy (Verified 06/16/24 14:51) Exam Exam Patient is in no acute distress and is cooperative with the examination today. Patient has a normal mood and affect. Breathing is nonlabored. In no respiratory distress. Bilateral extremities were evaluated and demonstrates sensation intact to light touch. Palpable pedal pulses are present. No significant edema is present. Left hip incision is clean dry and intact. He has no x-rays with him today Assessment and Plan Problem List (1) Femoral neck fracture: Status: Acute Plan: Patient is a pleasant 83-year-old male with a left femoral neck fracture treated with 3 screws. It was valgus impacted. He is doing well. We would want to get new x-rays and see him back in 2 weeks. He is on DVT prophylaxis. Advanced Care Planning Discussion Advance care planning discussed with:: patient Office Procedures GNS Level of Care Nursing/Assessment Patient Status: Established Patient Nursing Assessment/Reassesment: Medication Reconciliation, Update PMH in EMR and Vital Signs Coordination of Care: Complex Care and Chronic Disease 1-5, Education Complex Pt/Fam, Consent,records obtained, informed consent, Results/Orders obtained and Staff clarify orders Established Patient Charge Established Patient Point Assignment: 95 Established Patient Point Charge: EP Level 3 (80-115) MA Intake Visit Data Collection New Patient or Established: Established Patient (seen at [facility] within 3 years) Reason for Visit:: FOLLOW UP HIP FRACTURE Seen by Clinical Staff ONLY (RN/MA): No PCP or OBGYN visit in last 3 months: Yes Hx Now: No Do You Feel Safe at Home: Yes Authorities Contacted: N/A Questionairres Past Medical History Past Medical History Have you ever been diagnosed with any of the following: Neurological Problems Seizures: No Cardiology Problems Hypercholesterolemia: No Congestive Heart Failure: No Edema: No Cellulitis: No Hypertension: Yes Hypotension: Yes Respiratory Problems Chronic Obstructive Pulmonary Disease (COPD): No Asthma: Yes Pneumonia: Yes Tuberculosis: No Sleep Apnea: No Smoking: No Smoking Exposure: No Stomache/Intestinal Problems Hepatitis: No Hemorrhoids: Yes Gastroesophageal Reflux Disease: Yes Genital/Urinary Problems Renal Disease: No Inguinal Hernia: Yes Benign Prostatic Hyperplasia: Yes Reproductive Problems Breast Cancer: Yes Musculoskeletal Problems Arthritis: Yes Degenerative Disk Disease: Yes Gout: No Carpal Tunnel Syndrome: No Head,Eye,Nose,Throat Problems Cataracts: Yes Glaucoma: No Endocrine Problems Diabetes Mellitus Type 1: No Diabetes Mellitus Type 2: No Hypothyroidism: Yes Blood Problems Anemia: No Sickle Cell Disease: No Psychologic Problems Depression: Yes Other Problems Hospitalization: No Down Syndrome: No Developmental Delay: No Shingles: No Falls: No Blood Transfusions: No Blood Transfusion Reaction: No Anesthesia Reactions: No Chemotherapy: Yes Radiation Therapy: Yes Chicken Pox: Yes Measles: Yes Mumps: Yes Cancer: Yes Lung Cancer: Yes Surgical History Pacemaker: No Thyroidectomy: No Subjective Visit Visit for: follow up visit and hip Immunization / Flu Flu Vaccine in the Last 12 Months: No Flu Vaccine Exclusion Criteria: No Exclusion Criteria History of Present Illness Chief complaint: Left hip pain Kyree is a pleasant 83-year-old male with left hip pain after a valgus impacted femoral neck fracture. We did 3 screws and he is doing well. He walked 100 feet a couple days ago. He is at a detention. Pain Pain level (0-10): 0 Ambulatory data Ambulatory device: other (specify) (WHEEL CHAIR) Treatments Improvement with previous injections: No Improvement with PT: No Improvement with NSAIDS: no Review of Systems Review of Systems: All systems negative unless otherwise noted in HPI.
[2024-07-02 14:49] VITALS: BP 91/59; PULSE 210; RESP 19; TEMP 36; O2SAT 84; BMI 25.0
== END 2024-07-02 15:05 | disposition home or self-care (01) ==
LOC: HODSRG 14:15
PROVIDERS: Supervising Provider Orthopaedic Surgery Adult Reconstructive Orthopaedic Surgery; Visit Provider Orthopaedic Surgery Adult Reconstructive Orthopaedic Surgery
DX: S72.002D Fracture of unspecified part of neck of left femur, subsequent encounter for closed fracture with routine healing (principal); X58.XXXD Exposure to other specified factors, subsequent encounter; M25.552 Pain in left hip; I10 Essential (primary) hypertension; K21.9 Gastro-esophageal reflux disease without esophagitis
CPT/HCPCS: 99213; G0463

== ENCOUNTER 2024-07-22 14:23 | Outpatient (AMB) | payer OTHER, MEDICAID, SELFPAY ==
[2024-07-22 14:38] VITALS: BP 107/66; PULSE 65; RESP 18; TEMP 36.7; O2SAT 92; BMI 23.6
--- NOTE | 2024-07-22 14:38 | ORTHONT_ITS ---
Vital signs 07/22/24 14:38 Height 1.88 m Height Method Stated Weight 83.461 kg Weight Measurement Method Standing Scale BMI 23.6 BP 107/66 Blood Pressure Source Automatic Cuff Blood Pressure Location Left Upper Arm Position Sitting Respiration 18 Pulse 65 Pulse Source Monitor Temp 98.1 F Temp Source Temporal Artery Scan Pulse Oximetry (%) 92 L Oxygen Delivery Method Room Air Med/Allergies Allergies & Medications Allergies No Known Allergies Allergy (Verified 07/22/24 14:39) Medication Reconciliation morphine concentrate 100 mg/5 mL (20 mg/mL) oral solution 0.5 ml PO QID PRN Pain 09/24/21 [History Confirmed 07/22/24] pantoprazole 40 mg tablet,delayed release 40 mg PO DAILY 09/04/23 [History Confirmed 07/22/24] midodrine 10 mg tablet 10 mg feeding tube TID 06/20/24 [History Confirmed 07/22/24] apixaban 5 mg tablet 5 mg PO BID 90 days #180 tabs 06/22/24 [Rx Confirmed 07/22/24] melatonin 3 mg tablet 3 mg PO HS #60 tabs 06/22/24 [Rx Confirmed 07/22/24] Exam Exam Patient is in no acute distress and is cooperative with the examination today. Patient has a normal mood and affect. Breathing is nonlabored. In no respiratory distress. Bilateral extremities were evaluated and demonstrates sensation intact to light touch. Palpable pedal pulses are present. No significant edema is present. Left hip incision is clean dry and intact. He has no x-rays with him today Assessment and Plan Problem List (1) Femoral neck fracture: Status: Acute Plan: Patient is a pleasant 83-year-old male with a left femoral neck fracture treated with 3 screws. It was valgus impacted. He is doing well. I was post to see x- rays but he did not bring them today. We will see him back for x-ray follow-up. Advanced Care Planning Discussion Advance care planning discussed with:: patient Office Procedures GNS Level of Care Nursing/Assessment Patient Status: Established Patient Nursing Assessment/Reassesment: Medication Reconciliation, Update PMH in EMR and Vital Signs Coordination of Care: Complex Care and Chronic Disease 1-5, Education Complex Pt/Fam, Consent,records obtained, informed consent, Results/Orders obtained and Staff clarify orders Established Patient Charge Established Patient Point Assignment: 95 Established Patient Point Charge: EP Level 3 (80-115) MA Intake Visit Data Collection New Patient or Established: Established Patient (seen at [facility] within 3 years) Reason for Visit:: F/U LEFT HIP FRACTURE Seen by Clinical Staff ONLY (RN/MA): No PCP or OBGYN visit in last 3 months: Yes Hx Now: No Do You Feel Safe at Home: Yes Authorities Contacted: N/A Questionairres Past Medical History Past Medical History Have you ever been diagnosed with any of the following: Neurological Problems Seizures: No Cardiology Problems Hypercholesterolemia: No Congestive Heart Failure: No Edema: No Cellulitis: No Hypertension: Yes Hypotension: Yes Respiratory Problems Chronic Obstructive Pulmonary Disease (COPD): No Asthma: Yes Pneumonia: Yes Tuberculosis: No Sleep Apnea: No Smoking: No Smoking Exposure: No Stomache/Intestinal Problems Hepatitis: No Hemorrhoids: Yes Gastroesophageal Reflux Disease: Yes Genital/Urinary Problems Renal Disease: No Inguinal Hernia: Yes Benign Prostatic Hyperplasia: Yes Reproductive Problems Breast Cancer: Yes Musculoskeletal Problems Arthritis: Yes Degenerative Disk Disease: Yes Gout: No Carpal Tunnel Syndrome: No Head,Eye,Nose,Throat Problems Cataracts: Yes Glaucoma: No Endocrine Problems Diabetes Mellitus Type 1: No Diabetes Mellitus Type 2: No Hypothyroidism: Yes Blood Problems Anemia: No Sickle Cell Disease: No Psychologic Problems Depression: Yes Other Problems Hospitalization: No Down Syndrome: No Developmental Delay: No Shingles: No Falls: No Blood Transfusions: No Blood Transfusion Reaction: No Anesthesia Reactions: No Chemotherapy: Yes Radiation Therapy: Yes Chicken Pox: Yes Measles: Yes Mumps: Yes Cancer: Yes Lung Cancer: Yes Surgical History Pacemaker: No Thyroidectomy: No Subjective Visit Visit for: follow up visit and hip Immunization / Flu Flu Vaccine in the Last 12 Months: No Flu Vaccine Exclusion Criteria: No Exclusion Criteria History of Present Illness Chief complaint: F/U LEFT HIP FRACTURE Kyree is a pleasant 83-year-old male with left hip pain after a valgus impacted femoral neck fracture. We did 3 screws and he is doing well. He walked 100 feet a couple days ago. He is at a [facility]. Pain Pain level (0-10): 0 Associated signs & symptoms: none Ambulatory data Ambulatory device: other (specify) (WHEEL CHAIR) Treatments Improvement with previous injections: No Improvement with PT: No Improvement with NSAIDS: no Review of Systems Review of Systems: All systems negative unless otherwise noted in HPI.
== END 2024-07-22 14:45 | disposition home or self-care (01) ==
LOC: HODSRG 14:23
PROVIDERS: Supervising Provider Orthopaedic Surgery Adult Reconstructive Orthopaedic Surgery; Visit Provider Orthopaedic Surgery Adult Reconstructive Orthopaedic Surgery
DX: S72.002D Fracture of unspecified part of neck of left femur, subsequent encounter for closed fracture with routine healing (principal); X58.XXXD Exposure to other specified factors, subsequent encounter; I10 Essential (primary) hypertension
CPT/HCPCS: 99213; G0463

== ENCOUNTER → 2024-09-21 | Outpatient (CLI) | payer OTHER, MEDICAID, SELFPAY ==
--- NOTE | 2024-09-21 12:30 | XR_ITS ---
EXAMINATION: PET/CT FUSION SKULL TO THIGH EXAM DATE AND TIME: September 21, 2024 1323 hours Comparison March 04, 2024 INDICATIONS: Diagnosis head and neck cancer post treatment restaging CTDI:vol (mGy) 6.39 DLP: (mGycm) 662.90 PROCEDURE: 16.4 mCi FDG was administered intravenously To allow for distribution and uptake of radiotracer, the patient was allowed to rest quietly in a shielded room. Imaging was performed on an integrated 16-slice PET/CT scanner, with scanning from the skull base to the mid thigh. Serum blood glucose at the time of the injection was measured 107 mg/dL. CT scanning was performed without oral or intravenous contrast material. FINDINGS: Head and Neck: There is no cher hypermetabolism in the neck. The visualized portions of the brain are normal in appearance on CT. Chest: Interval 3 mm non hypermetabolic pulmonary nodule anterior segment left upper lobe image 99 Abdomen and Pelvis: There is no cher hypermetabolism in retroperitoneal or pelvic chains. The spleen is normal in size and FDG avidity. Musculoskeletal: Marrow uptake is within normal range. IMPRESSION: Interval 3 mm non hypermetabolic pulmonary nodule anterior segment left upper lobe, image 99, recommend high-resolution CT chest without contrast follow-up
== END | disposition home or self-care (01) ==
LOC: CDIM 12:05
PROVIDERS: PCP Family Medicine; Referring Provider Internal Medicine Hematology & Oncology; Visit Provider Internal Medicine Hematology & Oncology
DX: R91.1 Solitary pulmonary nodule (principal); C10.3 Malignant neoplasm of posterior wall of oropharynx
CPT/HCPCS: 78815; A9552

== ENCOUNTER 2024-10-06 11:35 | Outpatient (RCR) | payer OTHER, MEDICAID, SELFPAY ==
[2024-10-05 16:14] LABS: Basophils # (Auto) 0.0 Thou/mm3 (0.0-0.2); Basophils % (Auto) 1 % (0-2.5); Eosinophils # (Auto) 0.1 Thou/mm3 (0.0-0.5); Eosinophils % (Auto) 1 % (0-10); Hematocrit 45.8 % (41.0-53.0); Hemoglobin 15.7 g/dL (13.5-16.0); Immature Granulocytes Auto 0.01 Thou/mm3 (0.00-0.00); Lymphocytes # (Auto) 0.9 Thou/mm3 (1.0-4.8); Lymphocytes % (Auto) 15 % (10-50); Mean Corpuscular HGB Conc 34.3 g/dl (31.0-37.0); Mean Corpuscular Hemoglobin 32.0 pg (25.0-35.0); Mean Corpuscular Volume 93 fL (80-100); Monocytes # (Auto) 0.5 Thou/mm3 (0.0-0.8); Monocytes % (Auto) 8 % (0-12); Neutrophils # (Auto) 4.6 Thou/mm3 (1.8-7.7); Neutrophils % (Auto) 76 % (37-80); Nucleated Red Blood Cell # 0.00 Thou/mm3 (0.00-0.00); Nucleated Red Blood Cell % 0 /100 WBC (0); Platelet Count 144 Thou/mm3 (140-440); RDW Standard Deviation 48.6 fL (35.1-43.9); Red Blood Count 4.91 Miln/mm3 (4.50-5.90); White Blood Count 6.1 Thou/mm3 (3.8-10.6)
[2024-10-05 16:43] LABS: Prostate Specific Antigen 5.67 ng/mL (0-4.00)
[2024-10-05 16:44] LABS: AFP Non-Pregnant 6.20 ng/mL (<8.10)
[2024-10-05 16:45] LABS: Alanine Aminotransferase 22 U/L (10-49); Albumin, Serum 3.5 gm/dL (3.4-4.8); Albumin/Globulin Ratio 1.3 (1.2-2.2); Alkaline Phosphatase 119 U/L (46-116); Anion Gap 9 (7-16); Aspartate Amino Transferase 29 U/L (0-34); BUN/Creatinine Ratio 24 Ratio (12-20); Bilirubin,Total 0.5 mg/dL (0.3-1.2); Blood Urea Nitrogen 26 mg/dL (9-23); Calcium 8.7 mg/dL (8.3-10.6); Calcium (Corrected) 9.1 mg/dL (8.5-10.1); Carbon Dioxide 28.1 mMol/L (20.0-31.0); Chloride 106 mMol/L (98-107); Creatinine (Component) 1.1 mg/dL (0.6-1.3); Globulin 2.8 gm/dL (2.3-3.5); Glucose 159 mg/dL (74-106); Osmolality,Calculated 292 (275-295); Potassium 4.0 mMol/L (3.4-5.1); Sodium 143 mMol/L (136-145); Total Protein 6.3 gm/dL (5.7-8.2); eGFR > 60 See Note
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
== END 2024-10-28 23:59 | disposition home or self-care (01) ==
LOC: SCTC 11:35
PROVIDERS: Internal Medicine Hematology & Oncology; PCP Hospitalist; Referring Provider Hospitalist; Visit Provider Radiology Therapeutic Radiology
DX: Z08 Encounter for follow-up examination after completed treatment for malignant neoplasm (principal); Z85.818 Personal history of malignant neoplasm of other sites of lip, oral cavity, and pharynx; R13.10 Dysphagia, unspecified; R91.1 Solitary pulmonary nodule; S92.909D Unspecified fracture of unspecified foot, subsequent encounter for fracture with routine healing; V18.2XXD Unspecified pedal cyclist injured in noncollision transport accident in nontraffic accident, subsequent encounter
CPT/HCPCS: 36591; 80053; 82105; 84153; 85025; 99212; A4216; J1642; G0463

== ENCOUNTER 2024-11-19 03:09 | Emergency (ER) | payer OTHER, MEDICAID, SELFPAY ==
[2024-11-19 03:10] VITALS: BP 135/88; PULSE 67; RESP 18; TEMP 36.9; O2SAT 95
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
--- NOTE | 2024-11-19 03:22 | XR_ITS ---
Examination: Abdomen AP single view Technique: AP portable supine abdomen, single view Exam date and time: November 19, 2024 0330 hours INDICATIONS: Epigastric pain today. FINDINGS: Feeding tube overlies the left abdomen Surgical clips in the upper right abdomen Moderate stool throughout the colon. No obstruction Healed left subcapital hip fracture IMPRESSION: Nonobstructive bowel gas pattern
[2024-11-19 03:29] VITALS: PULSE 63; O2SAT 95
== END 2024-11-19 04:04 | disposition home or self-care (01) ==
LOC: SERX 04:08
PROVIDERS: Emergency Provider Emergency Medicine
DX: T85.528A Displacement of other gastrointestinal prosthetic devices, implants and grafts, initial encounter (principal); Y82.8 Other medical devices associated with adverse incidents; Y84.8 Other medical procedures as the cause of abnormal reaction of the patient, or of later complication, without mention of misadventure at the time of the procedure; I11.0 Hypertensive heart disease with heart failure; I50.9 Heart failure, unspecified; J45.909 Unspecified asthma, uncomplicated; K21.9 Gastro-esophageal reflux disease without esophagitis; N40.0 Benign prostatic hyperplasia without lower urinary tract symptoms; F32.A Depression, unspecified; E03.9 Hypothyroidism, unspecified; K64.9 Unspecified hemorrhoids; K40.90 Unilateral inguinal hernia, without obstruction or gangrene, not specified as recurrent
CPT/HCPCS: 43762; 74018; 99282

== ENCOUNTER 2024-11-24 14:01 | Outpatient (RCR) | payer OTHER, MEDICAID, SELFPAY ==
--- NOTE | 2024-11-24 14:35 | CTCFLWUP_ITS ---
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 Patient with stage IVc p16 positive PD-L1 expressed 40% squamous cell CA of the soft palate with lung mets. Treated with radiation therapy and chemo August 15 through with good response clinically and PET scan. Recurrence right neck following FNA 03/05/2019 and later noted mediastinal and lung nodules. PET/CT 08/27/2023 revealed hypermetabolic mass left oropharynx. Additional radiotherapy of 6000 cGy delivered to this site completed December 2023. PET scan 03/04/2024 showed good response with no active metastatic disease. Repeat PET scan 09/21/2024 interval 3 mm pulmonary nodule left upper lobe. Patient referred to [facility] for tracheal closure and ENT eval for chronic difficulty swallowing. Still using G-tube. Due to insurance change to [facility] patient can only be seen at [facility] tertiary center. as I examined him today the the neck feels somewhat firm left greater than right but this is likely due to radiation changes. Trach appears to working adequately as is the G-tube. Assessment #1 stage IVc p16 positive squamous SCCA of the soft palate with lung mets. #2. Prior systemic therapy and radiation therapy to head and neck site with no sign of local recurrence. Pain managed with MS liquid 10 mg every 6 as needed. Cures website checked. #3. 3 mm pulmonary nodule left upper lobe noted on PET scan 09/21/2024. #4. ENT referral for exam and possible trach removal not possible except at [facility] tertiary center because of insurance change. Still using G-tube for most of his feeding. #5. Patient states that he may switch to regular Medicare to be able to see more specialist before next visit. $6. Has follow-up with Dr. Alejandra and I will see him again in 3 months for pain management including refill of his morphine liquid. Electronically signed by: Curtis Reynoso M.D. 11/24/2024 2:33 PM
== END 2024-11-28 23:59 | disposition home or self-care (01) ==
LOC: SCTC 14:01
PROVIDERS: PCP Family Medicine; Referring Provider Radiology Therapeutic Radiology; Visit Provider Radiology Therapeutic Radiology
DX: C05.1 Malignant neoplasm of soft palate (principal); C78.00 Secondary malignant neoplasm of unspecified lung; R91.1 Solitary pulmonary nodule; Z93.1 Gastrostomy status; Z92.3 Personal history of irradiation
CPT/HCPCS: 99213; G0463

== ENCOUNTER 2024-12-07 13:29 | Outpatient (RCR) | payer OTHER, MEDICAID, SELFPAY ==
[2024-12-06 11:40] LABS: Basophils # (Auto) 0.0 Thou/mm3 (0.0-0.2); Basophils % (Auto) 1 % (0-2.5); Eosinophils # (Auto) 0.2 Thou/mm3 (0.0-0.5); Eosinophils % (Auto) 4 % (0-10); Hematocrit 47.9 % (41.0-53.0); Hemoglobin 15.9 g/dL (13.5-16.0); Immature Granulocytes Auto 0.01 Thou/mm3 (0.00-0.00); Lymphocytes # (Auto) 1.1 Thou/mm3 (1.0-4.8); Lymphocytes % (Auto) 31 % (10-50); Mean Corpuscular HGB Conc 33.2 g/dl (31.0-37.0); Mean Corpuscular Hemoglobin 32.7 pg (25.0-35.0); Mean Corpuscular Volume 99 fL (80-100); Monocytes # (Auto) 0.3 Thou/mm3 (0.0-0.8); Monocytes % (Auto) 7 % (0-12); Neutrophils # (Auto) 2.0 Thou/mm3 (1.8-7.7); Neutrophils % (Auto) 56 % (37-80); Nucleated Red Blood Cell # 0.00 Thou/mm3 (0.00-0.00); Nucleated Red Blood Cell % 0 /100 WBC (0); Platelet Count 135 Thou/mm3 (140-440); RDW Standard Deviation 50.9 fL (35.1-43.9); Red Blood Count 4.86 Miln/mm3 (4.50-5.90); White Blood Count 3.6 Thou/mm3 (3.8-10.6)
[2024-12-06 12:13] LABS: Alanine Aminotransferase 18 U/L (10-49); Albumin, Serum 3.6 gm/dL (3.4-4.8); Albumin/Globulin Ratio 1.4 (1.2-2.2); Alkaline Phosphatase 111 U/L (46-116); Anion Gap 12 (7-16); Aspartate Amino Transferase 30 U/L (0-34); BUN/Creatinine Ratio 23 Ratio (12-20); Bilirubin,Total 0.7 mg/dL (0.3-1.2); Blood Urea Nitrogen 23 mg/dL (9-23); Calcium 9.1 mg/dL (8.3-10.6); Calcium (Corrected) 9.4 mg/dL (8.5-10.1); Carbon Dioxide 26.8 mMol/L (20.0-31.0); Chloride 105 mMol/L (98-107); Creatinine (Component) 1.0 mg/dL (0.6-1.3); Globulin 2.6 gm/dL (2.3-3.5); Glucose 147 mg/dL (74-106); Osmolality,Calculated 293 (275-295); Potassium 3.2 mMol/L (3.4-5.1); Sodium 144 mMol/L (136-145); Total Protein 6.2 gm/dL (5.7-8.2); eGFR > 60 See Note
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
== END 2024-12-28 23:59 | disposition home or self-care (01) ==
LOC: SCTC 13:29
PROVIDERS: PCP Family Medicine; Referring Provider Family Medicine; Visit Provider Internal Medicine Hematology & Oncology
DX: Z08 Encounter for follow-up examination after completed treatment for malignant neoplasm (principal); Z85.818 Personal history of malignant neoplasm of other sites of lip, oral cavity, and pharynx; R13.10 Dysphagia, unspecified; R91.1 Solitary pulmonary nodule; Z92.3 Personal history of irradiation; Z92.21 Personal history of antineoplastic chemotherapy; S92.909D Unspecified fracture of unspecified foot, subsequent encounter for fracture with routine healing; V18.2XXD Unspecified pedal cyclist injured in noncollision transport accident in nontraffic accident, subsequent encounter
CPT/HCPCS: 36591; 80053; 85025; 99212; A4216; J1642; G0463

== ENCOUNTER → 2024-12-08 | Outpatient (CLI) | payer OTHER, MEDICAID, SELFPAY ==
--- NOTE | 2024-12-08 13:30 | XR_ITS ---
Examination: CT chest with intravenous contrast CT chest without intravenous contrast 2-D reconstructions Date and time of exam:December 08, 2024, 1414 hours, comparison CT chest abdomen pelvis January 07, 2023, PET CT scan September 21, 2024 INDICATIONS: Diagnosis malignant neoplasm oropharynx, Low lung cancer diagnosed 8 years ago, restaging, 3 mm non hypermetabolic pulmonary nodule anterior segment left upper lobe on PET CT scan September 21, 2024 CTDI:vol (mGy) 24.3 DLP: (mGycm) 919 Technique: Multiple axial sections of the thorax have been obtained. 3 mm slice thickness, from the hemidiaphragms to above the apices of the lungs. Mediastinal and lung density settings have been obtained. Intravenous contrast administered 60 cc Isovue-370. Noncontrast images have also been obtained. 2-D sagittal coronal images obtained. Low dose protocols were performed. One or more of the following dose reduction techniques were used; automated exposure control, adjustment of the mA and/or KV according to patient size, use of iterative reconstruction technique. Findings: Tracheostomy tube tip 3.7 cm above brendon No thoracic aortic aneurysm dilatation or dissection Pulmonary artery segments are not enlarged. No pulmonary artery emboli on this non-CTA study Trace pericardial effusion 4 mm pulmonary nodule right upper lobe image 93 4 mm pulmonary nodule lingular segment image 148 3 mm pulmonary nodule right lower lobe image 167 29 mm enhancing lesion in the spleen axial image 125 Absent gallbladder No common bile duct stones No adrenal mass No pancreatic mass Moderate renal scarring Abdominal aorta intact No ascites No visualized abdominal lymphadenopathy Significant osteopenia IMPRESSION: Noncalcified pulmonary nodules as above, with this study as baseline recommend 6 month follow-up CT chest without contrast 29 mm enhancing lesion in the spleen, recommend splenic ultrasound follow-up
== END | disposition home or self-care (01) ==
LOC: CCTX 13:41
PROVIDERS: PCP Family Medicine; Referring Provider Internal Medicine Hematology & Oncology; Visit Provider Internal Medicine Hematology & Oncology
DX: R91.8 Other nonspecific abnormal finding of lung field (principal); D73.89 Other diseases of spleen
CPT/HCPCS: 71270; A4649; Q9967

== ENCOUNTER 2025-01-02 12:22 | Inpatient (IN) | payer OTHER, MEDICAID, MEDICARE, SELFPAY ==
[2025-01-02] VITALS (11 sets, daily range): BP systolic 82–106; BP diastolic 44–88; PULSE 73–91; RESP 12–22; TEMP 36.6–37.4; O2SAT 84–98
--- NOTE | 2025-01-02 12:30 | EKG_ITS ---
[facility] Test Date: 2025-01-02 Pat Name: BRANDAN GAYLE Department: Room: - Gender: Male Program Admin: : 1940 Requested By: Olive Delgado Order Number: [id number] Reading MD: Olive Delgado Measurements Intervals [place] Rate: 91 P: 30 OK: 174 QRS: 3 QRSD: 103 T: 61 QT: 349 QTc: 429 Interpretive Statements SINUS RHYTHM WITH FREQUENT VENTRICULAR PREMATURE COMPLEXES LOW QRS VOLTAGE IN EXTREMITY LEADS [QRS DEFLECTION < 0.5 mV IN LIMB LEADS] POSSIBLE ANTERIOR MYOCARDIAL INFARCTION , OF INDETERMINATE AGE [30 ms Q WAVE IN V3/V4, OR R < 0.2 mV IN V4] Compared to ECG 06/20/2024 00:55:51 Ventricular premature complex(es) now present Myocardial infarct finding now present /store/S0/[id number]/ecg/[id number].pdf
--- NOTE | 2025-01-02 12:31 | XR_ITS ---
Examination: AP chest single view Technique: AP upright portable chest single view Date and time: January 02, 2025, 1306 hrs., Comparison June 22, 2024 Indications: Sepsis alert today Findings: Atelectasis versus early pneumonia left base Mild enlargement cardiac contour. Right internal jugular central line tip SVC satisfactory position. Endotracheal tube tip 5.7 cm above brendon. Right subclavian Port-A-Cath tip SVC satisfactory position Impression: Atelectasis and/or early pneumonia left base, the appearance should be clinically correlated
--- NOTE | 2025-01-02 12:36 | EDNOTE_ITS ---
ED Weakness RME/HPI General Chief complaint: Weakness Stated complaint: HYPERTENSION Time Seen by Provider: 01/02/25 12:28 Arrival date/time: 01/02/25 12:22 Limitations: no limitations RME / HPI RME / HPI Narrative: DR. ALVARADO MAIN ED EVALUATION: 84-year-old male brought in by EMS from home after his called 911 when he woke up stating he was not feeling well and has generalized body aches. History obtained from via EMS. Patient has a tracheostomy and a G-tube, with reported oozing from the G-tube site. EMS reported the patient was hypoxic at 84% on room air and hypotensive at 88/63, for which they administered fluids en route. He is currently able to nod to communicate and denies chest pain but does complain of generalized body aches. reports mentation is at baseline. Past medical history includes throat and lung cancer, hypertension, and no known history of myocardial infarction or heart failure. Patient is not currently undergoing cancer treatment. Related Data Home Medications ?Medication ?Instructions ?Recorded ?Confirmed morphine concentrate 100 mg/5 mL 0.5 ml PO QID PRN Peter n 09/24/21 01/03/25 (20 mg/mL) oral solution midodrine 10 mg tablet 10 mg feeding tube TID 06/2001/03/25 Previous Rx's ?Medication ?Instructions ?Recorded melatonin 3 mg tablet 3 mg PO HS #60 tabs 06/22/24 apixaban 2.5 mg tablet (Eliquis) 5 mg (2 x 2.5 mg) G-t ube BID 01/04/25 history DVT 1 month #120 tabs levothyroxine 25 mcg tablet 25 mcg PO ACBR Hypothyroid ism 1 01/04/25 month #30 tabs Allergies Allergy/AdvReac Type Severity Reaction Status Date / Time No Known Allergies Allergy Verified 01/07/25 12:14 Review of Systems Review of Systems Systems Reviewed: All systems reviewed, normal except as documented Past Medical History Past Medical History NEUROLOGIC: Positive Neurological Disorders and Seizures CARDIAC: Positive Hypertension and Hypotension RESPIRATORY: Positive Asthma and Pneumonia GASTROINTESTINAL: Positive Gastrointestinal Disorders, Hemorrhoids and Gastroesophageal Reflux Disease GENITOURINARY: Positive Genitourinary Disorders, Inguinal Hernia and Benign Prostatic Hyperplasia REPRODUCTIVE: Positive Breast Cancer MUSCULOSKELETAL: Positive Musculoskeletal Disorders, Arthritis and Degenerative Disk Disease ENT: Positive Cataracts ENDOCRINE: Positive Hypothyroidism PSYCHO/SOCIAL: Positive Depression OTHER HISTORY: Positive Chemotherapy, Radiation Therapy, Chicken Pox, Measles, Mumps, Cancer (throat cancer), Breast Cancer and Lung Cancer Family History FAMILY HISTORY: Positive Family Cardiac Disorders and Family Surgery Surgical History SURGICAL: Positive Throat Surgery, Tracheostomy, Gastrostomy and Vasectomy Social History SMOKING STATUS: Unknown if ever smoked SECOND HAND EXPOSURE: Yes ED Exam General Limitations: Present no limitations General appearance: Present other (Chronically ill, acutely decompensating, warm to touch, hair thinning.) Head Head exam: Present atraumatic, normocephalic and normal inspection Eye Eye exam: Present normal appearance, PERRL and EOMI ENT ENT exam: Present mucous membranes moist and other (Tracheostomy in place, clean, patent.) Neck Neck exam: Present full ROM and trachea midline (Tracheostomy tube in place) Chest Chest inspection: Present normal inspection, symmetric chest wall rise and other (Coarse breath sounds bilaterally) Respiratory Respiratory exam: Present other (Coarse breath sounds bilaterally) Cardiovascular Cardiovascular exam: Present regular rate and normal rhythm Abdominal Exam Abdominal exam: Present soft and other (G-tube in place with mild discharge at the insertion site, soft, nondistended.); Absent distention or tenderness Extremities Exam Extremities exam: Present normal inspection and full ROM Back Exam Back exam: Present normal inspection Neurological Exam Neurological exam: Present alert and other (Patient has baseline normal mentation, follows commands moves all extremities, patient with difficulty speaking secondary to tracheostomy device in place) Skin Skin exam: Present warm, dry, intact and normal color Course Quality Measures Current suspected stage: sepsis Possible source: unknown Blood cultures ordered: yes Antibiotic ordered: Yes Pertinent labs: 01/02/25 01/02/25 12:35 16:00 Lactic Acid 3.7 H mMol/L 2.3 H mMol/L (0.4-2.0) (0.4-2.0) Procalcitonin 0.10 ng/ml (0.0-0.49) 1225: Sepsis alert initiated. Orders made at this time are congruent with ED Adult Sepsis Order List. Re-evaluation is to be completed. 1317: Fluids started. 1347: Sepsis reassessment performed consisting of lab review, vitals, physical exam including auscultation of heart, lungs, and visual evaluation of capillary refills, mucosal membranes and extremities. sepsis and none Orders Category Date Time Status Admit to Inpatient Status Routine Admission 01/02/25 16:18 Active Patient Condition Routine Admission 01/02/25 16:17 Ordered Activity as Tolerated Routine Care 01/02/25 16:[address] Screening NOW Care 01/02/25 12:55 Completed Sleeping Car Porter STAT Care 01/02/25 12:30 Completed Continuous Pulse Oximetry NOW Care 01/02/25 16:17 Completed Continuous Pulse Oximetry STAT Care 01/02/25 12:30 Completed EKG (ED ONLY) *Do not use* NOW Care 01/02/25 12:30 Completed In and Out Catheter X1PRN Care 01/02/25 12:30 Completed Insert IV NOW Care 01/02/25 12:30 Completed Intake and Output QSHIFT Care 01/02/25 16:30 Ordered NPO STAT Care 01/02/25 12:30 Completed Notify provider NEEDED Care 01/02/25 16:17 Completed Strict Intake and Output Routine Care 01/02/25 12:[address] angio chest abdomen pelvis Stat Exams 01/02/25 12:55 Completed EKG (ED Only) Stat Exams 01/02/25 12:30 Draft XR chest 1V SEPSIS PROTOCOL Stat Exams 01/02/25 12:31 Completed ABG [Arterial Blood Gas] Stat Lab 01/02/25 16:32 Completed B-Type Natriuretic Peptide Stat Lab 01/02/25 12:35 Completed Blood Culture (Lab) Stat Lab 01/02/25 12:35 Completed CBC Stat Lab 01/02/25 12:35 Completed Comprehensive Metabolic Panel Stat Lab 01/02/25 12:35 Completed Lactate (Lactic Acid) Stat Lab 01/02/25 12:35 Completed Lactic Acid, 3 HR Stat Lab 01/02/25 16:00 Completed Lipase Stat Lab 01/02/25 12:35 Completed Magnesium Stat Lab 01/02/25 12:35 Completed Partial Thromboplastin Time Stat Lab 01/02/25 12:35 Completed Procalcitonin Stat Lab 01/02/25 12:35 Completed Prothrombin Time with INR Stat Lab 01/02/25 12:35 Completed Troponin I Stat Lab 01/02/25 12:35 Completed Urinalysis, C/S if Indicated Stat Lab 01/02/25 12:51 Completed ALBUTEROL RT 0.5ml [Proventil Rt 0.5ml] Med 01/02/25 16:17 Discontinued 2.5 mg INH Q2HR PRN Azithromycin Inj [Zithromax Inj] 500 mg Med 01/03/25 09:00 Discontinued Sodium Chloride 0.9% 250 ml [Ns] 250 ml IV QDAY Azithromycin Inj [Zithromax Inj] 500 mg Med 01/02/25 14:45 Discontinued Sodium Chloride 0.9% 250 ml [Ns] 250 ml IV X1 Midodrine [Proamatine] Med 01/02/25 13:23 Discontinued 10 mg PO STAT STA Ondansetron Inj [Zofran Inj] Med 01/02/25 16:17 Discontinued 4 mg IVP Q6H PRN Ringers Lactated 1000 ml [Lactated Ringers] 1,000 ml Med 01/02/25 12:31 Discontinued IV 999 mls/hr Ringers Lactated 1000 ml [Lactated Ringers] 500 ml Med 01/02/25 14:23 Discontinued IV 500 mls/hr Sodium Chloride Rt Damaris 0.9% [NS Rt Damaris 0.9%] Med 01/02/25 16:17 Discontinued 3 ml INH PRN PRN cefTRIAXone/D5w 1gm IV premix [Rocephin/D5w 1gm IV Med 01/02/25 12:30 Discontinued premix] 1 gm in 50 ml IV X1 Code Status Routine Oth 01/02/25 16:17 Completed Oxygen Delivery NOW RT 01/02/25 12:30 Completed Vital Signs Vital signs: Vital Signs Pulse Rate 88 01/02/25 12:33 Respiratory Rate 14 01/02/25 12:33 Pulse Oximetry (%) 95 01/02/25 12:33 Weakness MDM Narrative MDM Narrative:: Patient is an 84-year-old male with medical history notable for DVTs, throat cancer and lung cancer to the emergency department with weakness and difficulty breathing. Vital signs and exam as listed. Concern for sepsis, pneumonia, urinary tract infection, ACS arrhythmia among others. Ordered labs EKG chest x- ray provided patient with supplemental oxygen. Patient has a history of low blood pressure takes midodrine. Labs without leukocytosis, no left shift. No other acute hematologic abnormality, no significant electrolyte abnormality. Patient creatinine is 1.6, previously normal. Checked patient's prior echocardiogram, had an ejection fraction of 50% this was in May of this year. Chest x-ray with early pne [facility] provided patient with antibiotics. Troponin is 0.081. EKG with multiple PVCs. Patient does not have any chest pain does not have any shortness of breath however he is hypoxic. Patient BNP is 200 however does not have lower extremity edema, nor cephalization of vessels on chest x-ray. Will gently resuscitate patient. Patient lactic acid is 3.7. Urinalysis without evidence of infection. Patient's application integration engineer Dr. Mccormick came to bedside, evaluated patient. Believes patient is dehydrated recommends fluids. Given patient's increased hypoxia, persistent hypotension despite fluids and midodrine, history of cancer, ordered CT angio of the chest. Patient did receive fluids prior to CT. CT angio of the chest abdomen pelvis with evidence of prominent bibasilar pneumonia concerning for aspiration pneumonia. No evidence of pulmonary embolus. Patient with diverticulosis no diverticulitis. Will admit patient to the hospitalist service for management of sepsis and pneumonia complicated by hypoxic respiratory failure Demetra Hudson am scribing for and in the presence of Dr. Alvarado. Patient data External records reviewed:: [facility] previous records and EMS form Clinical information provided by:: patient, EMS and spouse Social determinants that could affect healthcare access:: none Patient has the following chronic illnesses:: Patient has a tracheostomy and a G-tube. Past medical history includes throat and lung cancer, hypertension, and no known history of myocardial infarction or heart failure. Patient is not currently undergoing cancer treatment. How is presenting disease/condition affected by chronic disease/condition?: exacerbated by Evaluation data The following diagnostics were reviewed and interpreted by me:: lab results, radiology exam(s) and EKG tracing(s) (My interpretation: EKG performed at 1232 hours, sinus rhythm, rate 91, normal intervals, occasional PVCs, not a cardiac alert) Lab and/or radiology exams considered but not ordered:: none Interpretation Summary: See MDM narrative above. RADIOLOGY Procedure(s): XR chest 1V SEPSIS PROTOCOL Accession Number(s): [id number] cc: Fabian Morales MD; Esdras Cain MD; Olive Alvarado MD~ Examination: AP chest single view Technique: AP upright portable chest single view Date and time: January 02, 2025, 1306 hrs., Comparison June 22, 2024 Indications: Sepsis alert today Findings: Atelectasis versus early pneumonia left base Mild enlargement cardiac contour. Right internal jugular central line tip SVC satisfactory position. Endotracheal tube tip 5.7 cm above brendon. Right subclavian Port-A-Cath tip SVC satisfactory position Impression: Atelectasis and/or early pneumonia left base, the appearance should be clinically correlated Dictated By: Esdras Cain MD Medications / Prescriptions Medications or Prescriptions considered but not ordered:: none Medication administrations:: Medication Administration History Discontinued Medications Acetaminophen (Acetaminophen Damaris 325 Mg/10 Ml Udc) 650 mg PO Q6HR PRN PRN Reason: Pain 1-3 or Fever > 100.1 Stop: 02/01/25 16:58 Hydrocodone Bitart/Acetaminophen (Hydrocodone/Apap 5/325 Tablet) 1 tab PO Q4HR PRN PRN Reason: PAIN SCALE 4-10(Mod-Sev Stop: 01/07/25 16:27 Albuterol (Albuterol Rt 2.5 Mg/0.5 Ml Nebu) 2.5 mg INH Q2HR PRN PRN Reason: SHORTNESS OF BREATH OR WHEEZE Stop: 02/01/25 16:16 Albuterol/Ipratropium (Albuterol/Ipratropium (Duoneb) Rt Damaris 3 Ml Nebu) 3 ml INH Q6HRRT BERNA Stop: 02/01/25 18:59 Last Admin: 01/03/25 06:42 Dose: Not Given Documented By: JUAN CARLOS Non-Admin Reason: Patient Refused Admin: 01/03/25 00:26 Dose: 3 ml Documented By: Admin: 01/02/25 18:08 Dose: 3 ml Documented By: ENRICO Albuterol/Ipratropium (Albuterol/Ipratropium (Duoneb) Rt Damaris 3 Ml Nebu) 3 ml INH Q6HRRT PRN PRN Reason: WHEEZING Stop: 02/01/25 18:59 Apixaban (Apixaban 2.5 Mg Tablet) 5 mg PO BID BERNA Stop: 01/24/25 10:14 Last Admin: 01/03/25 10:47 Dose: 5 mg Documented By: MONISHA Apixaban (Apixaban 2.5 Mg Tablet) 5 mg GT BID [facility] Stop: 01/24/25 20:59 Last Admin: 01/04/25 08:36 Dose: 5 mg Documented By: MGShannon Admin: 01/03/25 21:11 Dose: 5 mg Documented By: GISELA [place] Oil (Balsam [place] Lu[place] Oil (Venelex) 60 Gm Tube) 0 gm TOP BID [facility] Stop: 02/02/25 20:59 Last Admin: 01/03/25 21:11 Dose: 1 appln Documented By: GISELA Guaifenesin (Guaifenesin Syrup 200 Mg/10 Ml Udc) 100 mg GT TID [facility]; Protocol Stop: 02/01/25 17:44 Last Admin: 01/04/25 13:09 Dose: 100 mg Documented By: Admin: 01/04/25 05:20 Dose: 100 mg Documented By: Admin: 01/03/25 21:12 Dose: 100 mg Documented By: Admin: 01/03/25 15:50 Dose: 100 mg Documented By: Admin: 01/03/25 05:11 Dose: Not Given Documented By: DG Non-Admin Reason: Patient Refused Admin: 01/03/25 02:34 Dose: Not Given Documented By: DG Non-Admin Reason: ed Admin: 01/02/25 18:02 Dose: 100 mg Documented By: EF Haloperidol Lactate (Haloperidol Lact Inj 5 Mg/Ml Vial) 0.5 mg IM Q8HR PRN PRN Reason: AGITATION Stop: 02/02/25 09:05 Haloperidol Lactate (Haloperidol Lact Inj 5 Mg/Ml Vial) 0.5 mg IV Q8HR PRN PRN Reason: AGITATION Stop: 02/02/25 09:05 Last Admin: 01/03/25 21:34 Dose: 0.5 mg Documented By: Admin: 01/03/25 09:32 Dose: 0.5 mg Documented By: MONISHA Heparin Sodium (Porcine) (Heparin Sod Inj 5000 Unit/Ml Vial) 5,000 unit SC Q8HR BERNA Stop: 01/16/25 16:29 Last Admin: 01/03/25 05:11 Dose: Not Given Documented By: DG Non-Admin Reason: Patient Refused Admin: 01/03/25 02:34 Dose: Not Given Documented By: DG Non-Karyn Reason: ed Admin: 01/02/25 18:02 Dose: 5,000 unit Documented By: GARETT Co-signed By: ER Ceftriaxone Sodium/Dextrose (Rocephin/D5w 1gm Iv Premix) 1 gm in 50 mls @ 100 mls/hr IV X1 ONE Stop: 01/02/25 12:59 Last Infusion: 01/02/25 13:50 Dose: Infused Documented By: Admin: 01/02/25 13:17 Dose: 100 mls/hr Documented By: EF Lactated Ringer's (Lactated Ringers) 1,000 mls @ 999 mls/hr IV .Q1H1M ONE Stop: 01/02/25 13:31 Last Infusion: 01/02/25 15:53 Dose: Infused Documented By: [facility](2) Admin: 01/02/25 13:55 Dose: 999 mls/hr Documented By: GM Lactated Ringer's (Lactated Ringers) 500 mls @ 500 mls/hr IV .Q1H ONE Stop: 01/02/25 15:22 Last Infusion: 01/02/25 15:41 Dose: Infused Documented By: Admin: 01/02/25 14:41 Dose: 500 mls/hr Documented By: EF Azithromycin 500 mg/ Sodium (Chloride) 250 mls @ 250 mls/hr IV QDAY BERNA Stop: 01/08/25 09:59 Last Admin: 01/04/25 09:40 Dose: 250 mls/hr Documented By: MGShannon Infusion: 01/03/25 10:32 Dose: Infused Documented By: Admin: 01/03/25 09:32 Dose: 250 mls/hr Documented By: MONISHA Azithromycin 500 mg/ Sodium (Chloride) 250 mls @ 250 mls/hr IV X1 ONE Stop: 01/02/25 15:44 Last Infusion: 01/02/25 16:52 Dose: Infused Documented By: Admin: 01/02/25 15:52 Dose: 250 mls/hr Documented By: JUAN CARLOS(2) Lactated Ringer's (Lactated Ringers) 500 mls @ 999 mls/hr IV .Q31M ONE Stop: 01/02/25 17:29 Last Infusion: 01/02/25 17:40 Dose: Infused Documented By: Admin: 01/02/25 17:09 Dose: 999 mls/hr Documented By: GARETT Ceftriaxone Sodium/Dextrose (Rocephin/D5w 1gm Iv Premix) 1 gm in 50 mls @ 100 mls/hr IV QDAY BERNA Stop: 01/10/25 08:59 Last Admin: 01/04/25 08:36 Dose: 100 mls/hr Documented By: MGShannon Infusion: 01/03/25 09:21 Dose: Infused Documented By: Admin: 01/03/25 08:51 Dose: 100 mls/hr Documented By: MONISHA Lactated Ringer's (Lactated Ringers) 1,000 mls @ 999 mls/hr IV .Q1H1M ONE Stop: 01/02/25 21:07 Last Admin: 01/02/25 21:22 Dose: Not Given Documented By: DAGO Non-Admin Reason: Cancelled by Provider Lactated Ringer's (Lactated Ringers) 1,000 mls @ 999 mls/hr IV .Q1H1M ONE Stop: 01/02/25 22:16 Last Infusion: 01/02/25 23:20 Dose: Infused Documented By: Admin: 01/02/25 22:14 Dose: 999 mls/hr Documented By: DAGO Sodium Chloride (Ns) 250 mls @ 999 mls/hr IV .Q16M ONE Stop: 01/03/25 07:53 Last Admin: 01/03/25 08:13 Dose: 999 mls/hr Documented By: MONISHA Magnesium Sulfate (Magnesium Sulfate Ivpb) 2 gm in 50 mls @ 25 mls/hr IV X1 ONE Stop: 01/04/25 05:06 Last Admin: 01/04/25 03:18 Dose: 25 mls/hr Documented By: GISELA Levothyroxine Sodium (Levothyroxine Sodium 25 Mcg Tablet) 25 mcg PO ACBR BERNA Stop: 02/03/25 08:29 Last Admin: 01/04/25 08:36 Dose: 25 mcg Documented By: TRAY Midodrine (Midodrine 5 Mg Tablet) 10 mg PO STAT STA Stop: 01/02/25 13:24 Last Admin: 01/02/25 13:45 Dose: 10 mg Documented By: GARETT Midodrine (Midodrine 5 Mg Tablet) 10 mg GT TID BERNA Stop: 02/02/25 07:44 Last Admin: 01/04/25 13:10 Dose: 10 mg Documented By: Admin: 01/04/25 05:20 Dose: 10 mg Documented By: Admin: 01/03/25 21:11 Dose: 10 mg Documented By: Admin: 01/03/25 15:50 Dose: 10 mg Documented By: Admin: 01/03/25 08:16 Dose: 10 mg Documented By: MONISHA Morphine Sulfate (Morphine Sulf Inj 4 Mg/Ml Vial) 4 mg IVP X1 ONE Stop: 01/03/25 02:42 Last Admin: 01/03/25 02:50 Dose: 4 mg Documented By: DG Morphine Sulfate (Morphine Sulf Liqd 10 Mg/5 Ml Udc) 10 mg PO QID PRN; Protocol PRN Reason: CANCER PAIN Stop: 01/08/25 08:09 Non-Formulary Medication (Morphine Concentrate) 0.5 ml PO QID PRN PRN Reason: Pain Ondansetron HCl (Ondansetron Inj 2 Mg/Ml Inj 2 Ml) 4 mg IVP Q6H PRN; Protocol PRN Reason: NAUSEA OR VOMITING Stop: 02/01/25 16:16 Sennosides (Senna Tablet) 1 tab PO QDAY PRN; Protocol PRN Reason: constipation Stop: 02/01/25 16:22 Sodium Chloride (Sodium Chloride Rt Damaris 0.9% 3 Ml Nebu) 3 ml INH PRN PRN PRN Reason: SOLN Stop: 02/01/25 16:16 Sodium Chloride (Sodium Chloride Rt 10% 15 Ml Nebu) 5 ml INH X1 ONE Stop: 01/02/25 16:24 Last Admin: 01/03/25 15:43 Dose: Not Given Documented By: MONISHA Non-Admin Reason: Discontinued see above Consultations Consultation(s) initiated? (list below): Yes Diagnosis Weakness Differential Diagnosis: other (Sepsis, pneumonia, and G-tube site infection.) Most likely diagnosis given after review of the tests above:: Pneumonia, hypoxic respiratory failure Admission Indicated Admission indicated?: indicated Admission Request Was there a request for admission?: Yes Admission Attestation Admission request attestation: Discussed case with Hospitalist service regarding admission. Discussed patients ED course, exam findings, labs, and radiology results. The Hospitalist [agrees] to accept the patient for admission. Disposition Plan Disposition Plan: Admit Critical Care Time Critical Care Time Critical Care Time: Yes Total Critical Care Time (min.): 60 Attestation: Total critical care time: Approximately?60?minutes Due to a high probability of clinically significant, life threatening deterioration, the patient required my highest level of preparedness to intervene emergently and I personally spent this critical care time directly and personally managing the patient. This critical care time included obtaining a history; examining the patient; pulse oximetry; ordering and review of studies; arranging urgent treatment with development of a management plan; evaluation of patient's response to treatment; frequent reassessment; and, discussions with other providers. This critical care time was performed to assess and manage the high probability of imminent, life-threatening deterioration that could result in multi-organ failure. It was exclusive of separately billable procedures and treating other patients and teaching time. Please see MDM section and the rest of the note for further information on patient assessment and treatment Discharge Plan Plan Patient Disposition: Admit Acute Care w/in Hospital Patient condition on transfer: Stable Problem List Clinical Impression: Pneumonia, Acute hypoxic respiratory failure, Sepsis, Chronic hypotension
[2025-01-02 12:52] LABS: Lactate (Lactic Acid) 3.7 mMol/L (0.4-2.0)
[2025-01-02 12:55] LABS: Collection Type, Urine Catheter; Squamous Epithelial Cell,Urine 0 /hpf (0-5)
--- NOTE | 2025-01-02 12:55 | XR_ITS ---
Examination: CTA chest, with intravenous contrast. CTA abdomen, with intravenous contrast. CTA pelvis, with intravenous contrast. 2-D sagittal and coronal reconstructions. 3-D reconstructions. Date and time of exam: January 02, 2025, 1502 hrs. Indications: Shortness of breath chest pain abdominal pain today Comparison: 12/08/2024 CTDI vol (mgy) 12.7 DLP (MGycm) 8 Technique: Multiple CTA images, 2.0 mm slice thickness, obtained chest, abdomen, pelvis, with the high-resolution 64 slice scanner. 60 cc Isovue-300 is administered intravenously. Sagittal and coronal 2-D reconstructions are obtained. 3-D reconstructions, angiographic images are obtained. 3-D postprocessing, including vascular maximum intensity projections. Low dose protocols were performed. One or more of the following dose reduction techniques were used; automated exposure control, adjustment of the mA and/or KV according to patient size, use of iterative reconstruction technique. Findings: Tracheostomy tube tip satisfactory position Fluid distended esophagus No thoracic aortic aneurysmal dilatation or dissection Main pulmonary artery segments are not enlarged Significant pneumonia at the lung bases No partha pulmonary edema Mild enlargement cardiac contour No visualized liver or splenic lesion Absent gallbladder No extra hepatic biliary tract dilatation No pancreatic mass No renal or ureteral calculi, there is moderate renal parenchymal scar formation No abdominal aortic aneurysmal dilatation or dissection Gastrostomy tube in the stomach Colonic diverticulosis Normal appendix No diverticulitis Urinary bladder thickening upper posterior wall of the bladder Prostatomegaly 4.7 cm Severe osteopenia with diffuse moderate to advanced thoracic and lumbar degenerative disc disease Bones of the pelvis hips intact with healed left hip fracture Moderate osteoarthritis hip joints Impression: Negative for pulmonary artery emboli Prominent bibasilar pneumonia, consider aspiration pneumonia Absent gallbladder, no extra hepatic biliary tract dilatation Moderate renal parenchymal scar formation Normal appendix Colonic diverticulosis, no diverticulitis Urinary bladder wall thickening, cystitis would be included in the differential Moderate prostatomegaly
[2025-01-02 13:01] LABS: Basophils # (Auto) 0.0 Thou/mm3 (0.0-0.2); Basophils % (Auto) 1 % (0-2.5); Eosinophils # (Auto) 0.0 Thou/mm3 (0.0-0.5); Eosinophils % (Auto) 1 % (0-10); Hematocrit 47.2 % (41.0-53.0); Hemoglobin 15.7 g/dL (13.5-16.0); Immature Granulocytes Auto 0.03 Thou/mm3 (0.00-0.00); Lymphocytes # (Auto) 1.0 Thou/mm3 (1.0-4.8); Lymphocytes % (Auto) 11 % (10-50); Mean Corpuscular HGB Conc 33.3 g/dl (31.0-37.0); Mean Corpuscular Hemoglobin 33.1 pg (25.0-35.0); Mean Corpuscular Volume 99 fL (80-100); Monocytes # (Auto) 0.6 Thou/mm3 (0.0-0.8); Monocytes % (Auto) 7 % (0-12); Neutrophils # (Auto) 6.9 Thou/mm3 (1.8-7.7); Neutrophils % (Auto) 80 % (37-80); Nucleated Red Blood Cell # 0.00 Thou/mm3 (0.00-0.00); Nucleated Red Blood Cell % 0 /100 WBC (0); Platelet Count 151 Thou/mm3 (140-440); RDW Standard Deviation 48.6 fL (35.1-43.9); Red Blood Count 4.75 Miln/mm3 (4.50-5.90); White Blood Count 8.6 Thou/mm3 (3.8-10.6)
[2025-01-02 13:08] LABS: INR 1.1 (0.9-1.3); Partial Thromboplastin Time 26.8 Seconds (22.0-36.0); Prothrombin Time 11.2 Seconds (9.0-12.2)
[2025-01-02] MEDS: cefTRIAXone/D5w 1gm IV premix 1 GM/50 ML BAG IV (13:17)
[2025-01-02 13:18] LABS: Bilirubin,Urine Negative (Negative); Blood,Urine Negative (Negative); Clarity,Urine Clear (Clear/Hazy); Color,Urine Yellow (Lt Yel-Yel); Culture Indicated,Urine Not Indicated; Glucose, Urine Negative (Negative); Hyaline Casts,Urine < 1 /hpf (0-1); Ketones,Urine Negative (Negative); Leukocyte Esterase,Urine Negative (Negative); Nitrite,Urine Negative (Negative); PH,Urine 5.5 (5.0-7.0); Protein,Urine Trace (Neg - Trace); RBC,Urine 1 /hpf (0-3); Specific Gravity,Urine 1.022 (1.001-1.035); Urobilinogen,Urine Negative mg/dL (0.0-1.0); WBC,Urine 1 /hpf (0-5)
[2025-01-02 13:21] LABS: B-Type Natriuretic Peptide 208 pg/mL (0-100)
[2025-01-02 13:32] LABS: Alanine Aminotransferase 49 U/L (10-49); Albumin, Serum 3.9 gm/dL (3.4-4.8); Albumin/Globulin Ratio 1.4 (1.2-2.2); Alkaline Phosphatase 154 U/L (46-116); Anion Gap 8 (7-16); Aspartate Amino Transferase 69 U/L (0-34); BUN/Creatinine Ratio 15 Ratio (12-20); Bilirubin,Total 0.8 mg/dL (0.3-1.2); Blood Urea Nitrogen 24 mg/dL (9-23); Calcium 9.2 mg/dL (8.3-10.6); Calcium (Corrected) 9.3 mg/dL (8.5-10.1); Carbon Dioxide 26.8 mMol/L (20.0-31.0); Chloride 103 mMol/L (98-107); Creatinine (Component) 1.6 mg/dL (0.6-1.3); Globulin 2.8 gm/dL (2.3-3.5); Glucose 192 mg/dL (74-106); Lipase 20 U/L (12-53); Magnesium 2.1 mg/dL (1.6-2.6); Osmolality,Calculated 284 (275-295); Potassium 4.5 mMol/L (3.4-5.1); Procalcitonin 0.10 ng/ml (0.0-0.49); Sodium 138 mMol/L (136-145); Total Protein 6.7 gm/dL (5.7-8.2); eGFR 42 See Note
[2025-01-02 13:39] LABS: Troponin I 0.081 ng/mL (0.0-0.045)
[2025-01-02] MEDS: MIDODRINE 5 MG TABLET 10 MG PO (13:45)
[2025-01-02] MEDS: RINGERS LACTATED 1000 ML 1,000 ML 999 ML IV ×2 (13:55→22:14)
[2025-01-02] MEDS: RINGERS LACTATED 1000 ML 500 ML IV (14:41)
--- NOTE | 2025-01-02 15:07 | PD.RESCONSUL ---
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 Cardiology consulted by ED provider as patient follows with clinic outpatient. In the ED, EKG showed frequent bigeminy PVCs, which has been chronic for him since his femoral neck fracture repair in May 2024. Was not placed on beta blockers, CCB, or amiodarone as he has history of bradycardia. SBP in low 90s which is baseline for him, takes midodrine at home. cc:: cc: Exam Vital Signs Temp Pulse Resp BP Pulse Ox O2 Del Method O2 Flow Rate 99.2 F 73 14 99/69 95 Oxy Mask 10 01/02/25 12:36 01/02/25 13:45 01/02/25 12:36 01/02/25 13:45 01/02/25 12:36 01/02/25 12:36 01/02/25 12:36 Narrative Exam Physical Exam General: Awake and in no acute distress. Able to answer questions appropriately but has difficulty speaking with tracheostomy tube. HEENT: Normocephalic, atraumatic, mucous membranes moist. Tracheostomy present, poor dentition. Heart: Regular rate and rhythm, normal S1 and S2, no murmurs. Lungs: Abdomen: Soft, nondistended, nontender, positive bowel sounds. No guarding or rebound tenderness. PEG tube present. Neurologic: Alert and oriented x3, no gross neurological deficit, and patient able to move all 4 extremities. Extremities: No edema. Skin: No rash or ecchymoses. Results Labs 01/03/25 11:16 01/03/25 11:16 Labs: Short CBC 01/02/25 Range/Units 12:35 WBC 8.6 (3.8-10.6) Thou/mm3 Hgb 15.7 (13.5-16.0) g/dL Hct 47.2 (41.0-53.0) % Plt Count 151 (140-440) Thou/mm3 BMP 01/02/25 12:35 Sodium 138 Potassium 4.5 Chloride 103 Carbon Dioxide 26.8 BUN 24 H Creatinine 1.6 H Glucose 192 H Calcium 9.2 Cardiac Enzymes 01/02/25 Range/Units 12:35 Troponin I 0.081 H* (0.0-0.045) ng/mL Liver Function 01/02/25 Range/Units 12:35 Total Bilirubin 0.8 (0.3-1.2) mg/dL AST 69 H (0-34) U/L ALT 49 (10-49) U/L Alkaline Phosphatase 154 H (46-116) U/L Albumin 3.9 (3.4-4.8) gm/dL Urine 01/02/25 Range/Units 12:51 Urine Color Yellow (Lt Yel-Yel) Urine Clarity Clear (Clear/Hazy) Urine pH 5.5 (5.0-7.0) Ur Specific [place] 1.022 (1.001-1.035) Urine Protein Trace (Neg - Trace) Urine Glucose (UA) Negative (Negative) Quality Measures Quality Measures sepsis Current suspected stage: ruled out Possible source: unknown Blood cultures ordered: yes Antibiotic ordered: No and none Advance care planning discussed with:: patient Medications Home Medications and Allergies Home Medications ?Medication ?Instructions ?Recorded ?Confirmed ?Type morphine concentrate 100 mg/5 mL 0.5 ml PO QID PRN Pain 09/24/21 01/03/25 History (20 mg/mL) oral solution midodrine 10 mg tablet 10 mg feeding tube TID 06/20/24 01/03/25 History Allergies Allergy/AdvReac Type Severity Reaction Status Date / Time No Known Allergies Allergy Verified 07/22/24 14:39 Visit Medications Lactated Ringer's (Lactated Ringers) 500 mls @ 500 mls/hr IV .Q1H ONE Stop: 01/02/25 15:22 Last Admin: 01/02/25 14:41 Dose: 500 mls/hr Azithromycin 500 mg/ Sodium (Chloride) 250 mls @ 250 mls/hr IV QDAY BERNA Stop: 01/09/25 14:39 Azithromycin 500 mg/ Sodium (Chloride) 250 mls @ 250 mls/hr IV X1 ONE Stop: 01/02/25 15:44 Discontinued Medications Ceftriaxone Sodium/Dextrose (Rocephin/D5w 1gm Iv Premix) 1 gm in 50 mls @ 100 mls/hr IV X1 ONE Stop: 01/02/25 12:59 Last Infusion: 01/02/25 13:50 Dose: Infused Lactated Ringer's (Lactated Ringers) 1,000 mls @ 999 mls/hr IV .Q1H1M ONE Stop: 01/02/25 13:31 Last Admin: 01/02/25 13:55 Dose: 999 mls/hr Midodrine (Midodrine 5 Mg Tablet) 10 mg PO STAT STA Stop: 01/02/25 13:24 Last Admin: 01/02/25 13:45 Dose: 10 mg Assessment & Plan Plan Patient is an 82-year-old male with past medical history of Stage IVc, P16+, 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 Cardiology consulted by ED provider as patient follows with clinic outpatient. #HFpEF (EF 55-60%) (06/18/2024) #Grade I diastolic dysfunction Reports increased shortness of breath but appeared dehydratioed. No pitting edema on exam, unlikely in CHF exacerbation. Not on any GDMT as patient is chronically hypotensive. On admission, BNP 208, previously 58 in 08/2023. Echo 06/18/24 showed normal LV size and function with an EF 55-60%. Diastolic Dysfunction stage I. Normal RV size and function appears normal with RVSP 25-30 mmHg. Mild MR & MAC and Mild TR. Mild Aortic valve sclerosis without stenosis. -Acceptable gentle fluid resuscitation as patient is likely volume depleted from diarrheal illness -Continue to monitor renal function and for signs of fluid overload on physical exam -Strict ins and outs -Daily weights -Supplemental O2 as needed, wean as tolerated #NSTEMI type II #Elevated troponins Denied chest pain and upper abdominal pain on admission. Troponin 0.081. Continue to trend troponins EKG showed sinus rhythm with frequent bigeminy PVCs, which has been chronic for him since his femoral neck repair in May 2024. No ST or T wave abnormalities noted. Echo 06/18/24 showed normal LV size and function with an EF 55-60%. Diastolic Dysfunction stage I. Normal RV size and function appears normal with RVSP 25-30 mmHg. Mild MR & MAC and Mild TR. Mild Aortic valve sclerosis without stenosis. Nuclear stress test 02/2024 in office showed mildly decreased uptake in inferior lateral leads which was secondary to artifact from increased gut intake during stress test. Likely demand ischemia 2/2 intravascular depletion and hypoxemia in the setting of recent diarrheal illness. Check TSH A1c and lipid profile for further cardiac risk stratification. Repeat echo to rule out any regional wall motion abnormalities and evaluate the ejection fraction, LV function and RV function. ?Gentle fluid resuscitation as above #BRANDON, prerenal #Diarrhea #Generalized body aches Reports 1 week of diarrhea with associated body aches. Patient's also reports similar symptoms, suspect GI viral infection. Likely cause for BRANDON, creatinine 1.6 on admission (baseline 1.0). - Gentle fluid resuscitation as above #Hx of frequent PVCs/bigeminy EKG showed sinus rhythm with frequent bigeminy PVCs, which has been chronic for him since his femoral neck repair in May 2024. Continues to be in bigeminy with frequent PVCs on telemetry. -No pharmacological intervention needed at this time as patient is asymptomatic and last EF was normal. -Continue to replete potassium and magnesium => keep K >4, mag >2 -No BB oor CCB or amio as pt has history of bradycardia during one of his previous admissions and also patient is hypertensive and requires midodrine. 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 Patient plan of care was discussed with the attending physician, Dr. Alin Morfin, PGY-1 Attending Provider Attestation/Addendum I have personally seen and examined the patient separately on the above date of service and discussed the plan of care with the resident. I reviewed the resident Dr. Savita Morfin consultation progress note and agree with the resident findings and plan in the note above and have also edited the documentation to reflect my findings and plan. Oliverio Mccormick M.D. Interventional Cardiology
[2025-01-02 15:49] LABS: Reflex Lactate? Y
[2025-01-02] MEDS: AZITHROMYCIN INJ 500 MG in SODIUM CHLORIDE 0.9% 250 ML 250 ML 250 MG IV (15:52)
[2025-01-02 16:11] LABS: Lactic Acid, 3 HR 2.3 mMol/L (0.4-2.0)
[2025-01-02 16:34] LABS: Base Excess -4 (-3-3); HCO3 24 mEq/L (20-26); O2 Saturation 98 % (91-98); PCO2 49 mmHg (32.0-48.0); PO2 94 mmHg (83-108); pH, Arterial 7.29 (7.35-7.45)
[2025-01-02 16:35] LABS: Allen Test Performed/OK; Inspired O2, VO2 Liters 15 L/min; Puncture Site Right Radial
--- NOTE | 2025-01-02 16:46 | ESHP_ITS ---
<Statement entered by Felipe Stearns MD - 01/09/25 12:10> I reviewed above note and agree with findings and plans. I have also personally examined the patient with medicine team and went over assessment and plan with medical team including administration internship and resident physician. <Statement entered by Peyman Claros MD - 01/02/25 19:57> I saw and examined patient personally and supervised PGY 1 resident, Dr. Nobles with formulating a management plan. I agree with the documentation with the exceptions as listed below. Kyree Felton is an 84-year-old male with a PMH of throat cancer, neck cancer, lung cancer, and hip fracture (6 months ago) who presents today with chief complaint of weakness. Patient was admitted for the work-up and management of acute hypoxic respiratory failure secondary to pneumonia. Problem list: 1. Acute on chronic respiratory failure with hypoxia secondary to community- acquired pneumonia 2. NAGMA secondary to lactic acidosis 3. Respiratory acidosis secondary to community-acquired pneumonia 4. Diarrheal illness 5. NSTEMI type I versus type II 6. History of head and neck cancer 7. History of lung cancer 8. History of right leg DVT Patient has been having watery diarrhea for the past week and developed worsening shortness of breath over the past 2 days. At baseline he uses 5L home O2 as needed, but has had to constantly use it for the past [address] chest showed prominent bibasilar pneumonia WBC 8.6 BUN 24, CR 1.4 lactate 2.3, Trop 0.081. EKG significant for sinus rhythm with frequent PVCs. With regards to patient's acute on chronic respiratory failure with hypoxia we will treat him with supplemental O2. Started on ceftriaxone and azithromycin IV for likely community-acquired pneumonia. Also started on chest physiotherapy, guaifenesin and DuoNebs Q6 hourly scheduled. Pending blood and sputum cultures. For patient's PVCs and troponinemia, cardiology Dr. Mccormick was consulted. Plan of care discussed with Attending Dr. Jinny Claros MD PGY 2 Disclaimer: This note was dictated by speech recognition. Minor errors in audiology assistant may be present due to voice recognition software. Documentation for date of: 01/02/25 HPI History of Present Illness History of present illness: Kyree Felton is an 84-year-old male with a PMH of throat cancer, neck cancer, lung cancer, and hip fracture (6 months ago) who presents today with chief complaint of weakness. According to , patient did not feel well and asked to call 911 around 12:30 in the afternoon. Patient has apparently been having diarrhea for the past week, producing 4-5 watery, non-bloody, loose bowel movements per day; his has been having similar symptoms for 2 weeks now. Patient himself was difficult to hear due to tracheostomy tube but endorsed shortness of breath and mild pain/burning with urination. While in the ED, patient desaturated to the mid-80s and required 10 L oxygen mask for adequate oxygenation. He is apparently on 5 L home oxygen. He denied any fever, chest pain, or recent sick contacts other than . 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 Coagulation panel was WNL. ABG of right radial artery showed acidotic pH 7.29, pCO2 49, PaO2 94, HCO3 24. CMP showed BUN 24, creatinine 1.6, eGFR 42, blood glucose 192, lactic acid 3.7, AST 69, ALT 49, alkaline phosphatase 154, troponin I 0.081, BNP 208, lipase 20, and procalcitonin 0.10. UA was bland. Imagin/5 CXR showed atelectasis and possible early pneumonia of the left base. 01/02 EKG showed sinus rhythm of rate 91 with frequent VPCs. 01/02 CAP CTA showed prominent bibasilar pneumonia (possibly aspiration pneumonia), colonic diverticulosis without diverticulitis, urinary bladder wall thickening possibly suggestive of cystitis, moderate prostatomegaly, moderate renal parenchymal scar formation, absent gallbladder, normal appendix, and no pulmonary artery emboli. In the ED, patient was given IV ceftriaxone, IV azithromycin, 1.5 L LR bolus, and restarted on home midodrine 10 mg. Patient was admitted for the work-up and management of acute hypoxic respiratory failure secondary to pneumonia. Review of Systems Review of Systems Systems Reviewed: All systems reviewed, normal except as documented Exam Vital Signs Temp Pulse Resp BP Pulse Ox O2 Del Method O2 Flow Rate 99.2 F 73 14 99/69 95 Oxy Mask 10 01/02/25 12:36 01/02/25 13:45 01/02/25 12:36 01/02/25 13:45 01/02/25 12:36 01/02/25 12:36 01/02/25 12:36 Narrative Exam Physical Exam: General: A/O x3 frail, elderly male in NAD. Skin: Warm, dry, intact, no obvious rash. Head: Normocephalic, atraumatic. Eyes: PERRL, EOMI. Anicteric, vision grossly intact. Ears: No ear pain, no ear discharge, Hearing grossly intact. Nose: No nasal discharge. Mouth/Throat: Oral mucosa moist. No obvious lesions in oropharynx. Neck: Tracheostomy tube in place. Cardiovascular: Difficult to auscultate. Seemingly regular rate with possibly irregular rhythm, no murmur, no JVD or carotid bruits. +S1/S2. Respiratory: Inspiratory rhonchi auscultated mostly on bilateral anterior lung louie. Reduced air entry of bilateral posterior lung louie. Respirations unlabored, no crackles, no wheezing. No accessory muscle use. Gastrointestinal: PEG tube in place at epigastrium. Tenderness to palpation of umbilicus, RUQ, and RLQ. Soft, non-distended, no palpable masses. No guarding or rebound tenderness. Peristalsis present. Extremities: Skin lesion noted at right lateral hip. Two corns present on plantar surface of right foot. Symmetrical, no significant deformities. No edema, no cyanosis, no clubbing. 2+ radial pulse bilaterally, 2+ posterior tibial pulse bilaterally. Neuro: No focal deficits observed. Conversant, moving all extremities. No overt cerebellar signs/incoordination. Psychiatric: Cooperative, appropriate affect. Results: Labs 01/02/25 12:35 01/02/25 12:35 Labs: Short CBC 01/02/25 Range/Units 12:35 WBC 8.6 (3.8-10.6) Thou/mm3 Hgb 15.7 (13.5-16.0) g/dL Hct 47.2 (41.0-53.0) % Plt Count 151 (140-440) Thou/mm3 BMP 01/02/25 12:35 Sodium 138 Potassium 4.5 Chloride 103 Carbon Dioxide 26.8 BUN 24 H Creatinine 1.6 H Glucose 192 H Calcium 9.2 Cardiac Enzymes 01/02/25 Range/Units 12:35 Troponin I 0.081 H* (0.0-0.045) ng/mL Liver Function 01/02/25 Range/Units 12:35 Total Bilirubin 0.8 (0.3-1.2) mg/dL AST 69 H (0-34) U/L ALT 49 (10-49) U/L Alkaline Phosphatase 154 H (46-116) U/L Albumin 3.9 (3.4-4.8) gm/dL Urine 01/02/25 Range/Units 12:51 Urine Color Yellow (Lt Yel-Yel) Urine Clarity Clear (Clear/Hazy) Urine pH 5.5 (5.0-7.0) Ur Specific [place] 1.022 (1.001-1.035) Urine Protein Trace (Neg - Trace) Urine Glucose (UA) Negative (Negative) ABG Interpretation ABG results: 01/02/25 16:32 ABG pH 7.29 L ABG pCO2 49 H ABG pO2 94 ABG HCO3 24 ABG O2 Saturation 98 ABG Base Excess -4 L Quality Measures Quality Measures sepsis Current suspected stage: ruled out Possible source: unknown Blood cultures ordered: yes Antibiotic ordered: Yes and none Advance care planning discussed with:: patient Medications Home Medications and Allergies Home Medications ?Medication ?Instructions ?Recorded ?Confirmed ?Type morphine concentrate 100 mg/5 mL 0.5 ml PO QID PRN Peter n 09/24/21 07/22/24 History (20 mg/mL) oral solution pantoprazole 40 mg tablet,delayed 40 mg PO DAILY 09/0307/22/24 History release midodrine 10 mg tablet 10 mg feeding tube TID 06/2007/22/24 History Allergies Allergy/AdvReac Type Severity Reaction Status Date / Time No Known Allergies Allergy Verified 07/22/24 14:39 Visit Medications Hydrocodone Bitart/Acetaminophen (Hydrocodone/Apap 5/325 Tablet) 1 tab PO Q4HR PRN PRN Reason: PAIN SCALE 4-10(Mod-Sev Stop: 01/07/25 16:27 Albuterol (Albuterol Rt 2.5 Mg/0.5 Ml Nebu) 2.5 mg INH Q2HR PRN PRN Reason: SHORTNESS OF BREATH OR WHEEZE Stop: 02/01/25 16:16 Albuterol/Ipratropium (Albuterol/Ipratropium (Duoneb) Rt Damaris 3 Ml Nebu) 3 ml INH Q6HRRT BERNA Stop: 02/01/25 18:59 Heparin Sodium (Porcine) (Heparin Sod Inj 5000 Unit/Ml Vial) 5,000 unit SC Q8HR BERNA Stop: 01/16/25 16:29 Azithromycin 500 mg/ Sodium (Chloride) 250 mls @ 250 mls/hr IV QDAY BERNA Stop: 01/09/25 14:39 Ondansetron HCl (Ondansetron Inj 2 Mg/Ml Inj 2 Ml) 4 mg IVP Q6H PRN; Protocol PRN Reason: NAUSEA OR VOMITING Stop: 02/01/25 16:16 Sennosides (Senna Tablet) 1 tab PO QDAY PRN; Protocol PRN Reason: constipation Stop: 02/01/25 16:22 Sodium Chloride (Sodium Chloride Rt Damaris 0.9% 3 Ml Nebu) 3 ml INH PRN PRN PRN Reason: SOLN Stop: 02/01/25 16:16 Discontinued Medications Ceftriaxone Sodium/Dextrose (Rocephin/D5w 1gm Iv Premix) 1 gm in 50 mls @ 100 mls/hr IV X1 ONE Stop: 01/02/25 12:59 Last Infusion: 01/02/25 13:50 Dose: Infused Lactated Ringer's (Lactated Ringers) 1,000 mls @ 999 mls/hr IV .Q1H1M ONE Stop: 01/02/25 13:31 Last Infusion: 01/02/25 15:53 Dose: Infused Lactated Ringer's (Lactated Ringers) 500 mls @ 500 mls/hr IV .Q1H ONE Stop: 01/02/25 15:22 Last Admin: 01/02/25 14:41 Dose: 500 mls/hr Azithromycin 500 mg/ Sodium (Chloride) 250 mls @ 250 mls/hr IV X1 ONE Stop: 01/02/25 15:44 Last Admin: 01/02/25 15:52 Dose: 250 mls/hr Midodrine (Midodrine 5 Mg Tablet) 10 mg PO STAT STA Stop: 01/02/25 13:24 Last Admin: 01/02/25 13:45 Dose: 10 mg Sodium Chloride (Sodium Chloride Rt 10% 15 Ml Nebu) 5 ml INH X1 ONE Stop: 01/02/25 16:24 Assessment & Plan Plan Kyree Felton is an 84-year-old male with a PMH of throat cancer, neck cancer, lung cancer, and hip fracture (6 months ago) who presents today with chief complaint of weakness. Patient was admitted for the work-up and management of acute hypoxic respiratory failure secondary to pneumonia. #Acute hypoxic respiratory failure, secondary to community-acquired pneumonia #Community-acquired pneumonia Patient met 0/4 SIRS criteria. Endorses shortness of breath and dyspnea but denies fever and chest pain Requiring 10 L supplemental oxygen on admission to maintain SpO2 >93%, reportedly uses 5 L oxygen at home. PSI 113, risk class IV, 8.2-9.3% mortality, hospitalization recommended Dx: -Sputum culture pending -Procalcitonin 0.10 Rx: -Ceftriaxone 1g mg IV qD [01/02-01/06] -Azithromycin 500 mg IV qD [01/02-01/04] -DuoNebs q2HR prn -Mucinex as needed -Chest physiotherapy -Supplemental O2, titrate as tolerated to maintain SpO2 >93% #BRANDON, likely prerenal (BUN/creatinine ratio 15) #2/2 to intravascular depletion from dehydration 2/2 recent diarrhea Creatinine 1.6 (baseline: 0.9-1.0), eGFR 42 In the contexts of fluids, patient is s/p 2 L Rx: -Fluid resuscitation as appropriate -Monitor renal panel -Avoid nephrotoxic agents (aminoglycosides, NSAIDs, radiographic contrast) -Adjust medication dosing based on patient's impaired renal function -Hold any OTTO/ARB/diuretics #NAGMA #Lactic acidosis (down-trending) Admission ABG pH 7.29, pCO2 49, HCO3 24, anion gap 8 Admission LA 3.7 -> 2.3 Suspected 2/2 intravascular depletion from recent diarrhea Rx: -Treat underlying cause (likely hypoperfusion 2/2 intravascular depletion and hypoxemia in the setting of recent diarrheal illness and chronic hypotension) #Acute diarrheal illness 1 week duration of 4-5 episodes of watery, non-bloody diarrhea per day, afebrile had same symptoms for 2 weeks now Likely infectious etiology DDx: viral gastroenteritis (norovirus, Rotavirus), bacterial gastroenteritis Rx: -Fluid resuscitation as appropriate #Chronic hypotension Patient has chronically low BPs and is on home PO midodrine 10 mg TID In the setting of recent diarrheal illness ongoing for 1 week (4-5 loose, watery BMs per day) Rx: -Continue NG midodrine 10 mg TID -Fluid resuscitation as appropriate #Troponinemia, likely 2/2 demand ischemia Admission troponin 0.081 with slow rise to 0.098 Rx: -Treat underlying cause (likely demand ischemia 2/2 intravascular depletion and hypoxemia in the setting of recent diarrheal illness and chronic hypotension) #Transaminitis Admission AST 69, ALT 49, alkaline phosphatase 154 Rx: -Treat underlying cause (likely hypoperfusion 2/2 intravascular depletion and hypoxemia in the setting of recent diarrheal illness and chronic hypotension) #Tracheostomy tube #PEG tube Patient had both tracheostomy tube and PEG tube placed about 9 years ago 2/2 malignancies #Hx of throat cancer #Hx of neck cancer #Hx of lung cancer Patient has history of throat cancer from 9 years ago that is in remission Neck and lung cancer are also said to be in remission Follow Dr. Alejandra in the outpatient setting #Reported hx of right leg DVT On home PO Eliquis 5 mg BID (however, seems to have been last filled in May 2024) Rx: -Currently on SC heparin 5K q8HR (consider switching to Eliquis when BRANDON resolves) Hospital Management: Disposition: Admitted to [facility] for management of acute hypoxic respiratory failure secondary to pneumonia and sepsis Diet: Tube feeds (Dietitian Referral ordered) GI Prophylaxis: IV Protonix 40 mg qD Bowel Prophylaxis: Senna DVT Prophylaxis: SC Heparin 5K q8HR CODE STATUS: DNI I have examined the patient and conferred with my attending, Dr. Stearns, and my senior resident, Dr. Claros, regarding them. Ger Nobles, DO PGY-1 Internal Medicine
[2025-01-02 17:05] LABS: Troponin I 0.098 ng/mL (0.0-0.045)
[2025-01-02] MEDS: RINGERS LACTATED 500 ML 500 ML 999 ML IV (17:09)
[2025-01-02] MEDS: guaiFENesin SYRUP 200 MG/10 ML UDC 100 MG GT (18:02)
[2025-01-02] MEDS: HEPARIN SOD INJ 5000 UNIT/ML VIAL SC (18:02)
[2025-01-02] MEDS: ALBUTEROL/IPRATROPIUM (Duoneb) RT SOL 3 ML NEBU INH (18:08)
[2025-01-02 19:08] LABS: Lactate (Lactic Acid) 2.0 mMol/L (0.4-2.0)
[2025-01-03] VITALS (14 sets, daily range): BP systolic 90–122; BP diastolic 49–68; PULSE 41–93; RESP 14–24; TEMP 36.1–37; O2SAT 91–97; BMI 27.1
[2025-01-03] MEDS: ALBUTEROL/IPRATROPIUM (Duoneb) RT SOL 3 ML NEBU INH (00:26)
[2025-01-03] MEDS: MORPHINE SULF INJ 4 MG/ML VIAL IVP (02:50)
--- NOTE | 2025-01-03 05:20 | PC.NURSE ---
notifed Dr. croft, of patients hr has multlple pvc's, couplets and is brittnee in the 40's
--- NOTE | 2025-01-03 07:30 | PC.NURSE ---
Dr. Chapin aware of BP 90/50
[2025-01-03] MEDS: SODIUM CHLORIDE 0.9% 250 ML 250 ML 999 ML IV (08:13)
[2025-01-03] MEDS: MIDODRINE 5 MG TABLET 10 MG GT ×3 (08:16→21:11)
--- NOTE | 2025-01-03 08:44 | PC.SS ---
Update: Patient receiving IV antibiotics and nebulizer treatment.
[2025-01-03] MEDS: cefTRIAXone/D5w 1gm IV premix 1 GM/50 ML BAG IV (08:51)
[2025-01-03] MEDS: HALOPERIDOL LACT INJ 5 MG/ML VIAL IV ×2 (09:32→21:34)
[2025-01-03] MEDS: AZITHROMYCIN INJ 500 MG in SODIUM CHLORIDE 0.9% 250 ML 250 ML 250 MG IV (09:32)
[2025-01-03] MEDS: APIXABAN 2.5 MG TABLET 5 MG PO (10:47)
--- NOTE | 2025-01-03 10:54 | PC.SS ---
LIBRARY CUSTOMER SERVICE CLERK conducted bedside contact with the patient conduct initial assessment and to discuss discharge planning.? At bedside with patient was spouse, Thu Felton .? Information obtained from patient?s spouse.? Patient possesses a tracheostomy and a G-tube.? Patient possesses a history of throat cancer.? Patient resides at home with spouse.? Patient utilizes a walker to assist with ambulation.? Patient utilizes home oxygen.? Patient requires assistance with the completion of ADL?s.? Patient?s spouse transport patient to medical appointments.? Patient?s surrogate medical decision maker is spouse, Thu Felton.? Patient?s PCP is Dr. Morales [facility].? Patient?s biztalk architect is Dr. Garcia.? Patient?s oncologist is Dr. Alejandra.? Patient is not currently receiving chemotherapy.? Patient utilizes [facility] for medication services.? Plan is for the patient to return home at the time of discharge.? If home health recommended no preferred agency identified.? Family will provide transportation on behalf of the patient.? No further discharge needs identified by the patient.? No further intervention required at this time, case management social worker will be available to address any further concerns.? Next of Kin: Thu Jose Francisco D/C Plan: Home
--- NOTE | 2025-01-03 10:59 | PC.SS ---
Patient's Trach utilizes inner cannula #8.
[2025-01-03 11:36] LABS: Basophils # (Auto) 0.1 Thou/mm3 (0.0-0.2); Basophils % (Auto) 0 % (0-2.5); Eosinophils # (Auto) 0.0 Thou/mm3 (0.0-0.5); Eosinophils % (Auto) 0 % (0-10); Hematocrit 39.1 % (41.0-53.0); Hemoglobin 12.9 g/dL (13.5-16.0); Immature Granulocytes Auto 0.03 Thou/mm3 (0.00-0.00); Lymphocytes # (Auto) 0.8 Thou/mm3 (1.0-4.8); Lymphocytes % (Auto) 7 % (10-50); Mean Corpuscular HGB Conc 33.0 g/dl (31.0-37.0); Mean Corpuscular Hemoglobin 32.8 pg (25.0-35.0); Mean Corpuscular Volume 100 fL (80-100); Monocytes # (Auto) 0.9 Thou/mm3 (0.0-0.8); Monocytes % (Auto) 7 % (0-12); Neutrophils # (Auto) 10.7 Thou/mm3 (1.8-7.7); Neutrophils % (Auto) 86 % (37-80); Nucleated Red Blood Cell # 0.00 Thou/mm3 (0.00-0.00); Nucleated Red Blood Cell % 0 /100 WBC (0); Platelet Count 113 Thou/mm3 (140-440); RDW Standard Deviation 48.4 fL (35.1-43.9); Red Blood Count 3.93 Miln/mm3 (4.50-5.90); White Blood Count 12.5 Thou/mm3 (3.8-10.6)
[2025-01-03 12:03] LABS: Alanine Aminotransferase 34 U/L (10-49); Albumin, Serum 2.8 gm/dL (3.4-4.8); Albumin/Globulin Ratio 1.3 (1.2-2.2); Alkaline Phosphatase 98 U/L (46-116); Anion Gap 6 (7-16); Aspartate Amino Transferase 58 U/L (0-34); BUN/Creatinine Ratio 17 Ratio (12-20); Bilirubin,Total 0.6 mg/dL (0.3-1.2); Blood Urea Nitrogen 20 mg/dL (9-23); Calcium 8.2 mg/dL (8.3-10.6); Calcium (Corrected) 9.2 mg/dL (8.5-10.1); Carbon Dioxide 29.2 mMol/L (20.0-31.0); Cardiac Risk Estimate 3.3 RATIO (4.0-6.7); Chloride 104 mMol/L (98-107); Cholesterol 118 mg/dL (132-200); Creatinine (Component) 1.2 mg/dL (0.6-1.3); Estimated Creatinine Clearance 54.2 mL/min (>60); Globulin 2.2 gm/dL (2.3-3.5); Glucose 100 mg/dL (74-106); HDL Cholesterol 36 mg/dL (40-60); LDL Cholesterol,Calculated 67 mg/dL (0-130); Osmolality,Calculated 280 (275-295); Potassium 4.6 mMol/L (3.4-5.1); Sodium 139 mMol/L (136-145); Thyroid Stimulating Hormone 14.66 uIU/mL (0.55-4.78); Total Protein 5.0 gm/dL (5.7-8.2); Triglycerides 77 mg/dL (30-150); eGFR > 60 See Note
[2025-01-03 12:04] LABS: Troponin I 0.052 ng/mL (0.0-0.045)
--- NOTE | 2025-01-03 13:26 | ESPR_ITS ---
<Statement entered by Felipe Stearns MD - 01/09/25 12:10> I reviewed above note and agree with findings and plans. I have also personally examined the patient with medicine team and went over assessment and plan with medical team including senior international tax manager and resident physician. Documentation for date of: 01/03/25 Overnight event. Patient recieved 4 mg IV push of Morphine for pain, likely contributing to hospital acquired delirium. Patient is already scheduled on morphine oral. NO overnight IV pushes. If patient complains of pain consider lidocaine patch or additional morphine 10 mg oral. Pain management given history of cancer. Acute hypoxic respiratory failure secondary to CAP, continue IV antibiotics, pending cultures. Troponemia, likely secondary to type II NSTEMI given BRANDON and pneumonia. BRANDON improving as Cr continues to down trend. Elevated TSH, concern for hypothyroidism vs sick sinus syndrome given acute infectious state, follow up with Free T4. PEG tube, consult camp cook. Follow up on blood cultures which should result in the next 24 hours. - The patient's plan was discussed with attending Dr. Jinny Chapin MD PGY2 Internal Medicine Subjective Subjective Interval history: Overnight, patient was reported to have refused breathing treatments as well as lab draws and threatened to leave AMA. Patient was examined at bedside; he appears agitated and seems to be expressing the desire to leave AMA (corroborated by who was also present at bedside). Physical exam was limited due to patient's perturbed state. Labs today significant for WBC 8.6 -> 12.5, Hgb 15.7 -> 12.9, platelet count 151 -> 113, creatinine 1.6 -> 1.2, AST 58, ALT 34, troponin I 0.098 -> 0.052, and TSH 14.66. Plan Updates: -Ordered MRSA screen -Switched SC Heparin to PO Eliquis 5 mg BID -Restarted home GT midodrine 10 mg TID -Restarted home PO morphine 10 mg QID prn -Started Jevity 1.5 1 L for dinner -Started Balsam [place] Oil BID Exam Vital Signs Temp Pulse Resp BP Pulse Ox O2 Del Method O2 Flow Rate 97 F 75 16 90/50 L 96 Blow-by 10 01/03/25 07:25 01/03/25 08:16 01/03/25 07:25 01/03/25 08:16 01/03/25 07:25 01/03/25 07:25 01/03/25 07:25 FiO2 40 01/03/25 06:10 Narrative Exam General: A/O unable to be assessed. Frail, agitated, and animated elderly male. Skin: Warm, dry, intact, no obvious rash. Head: Normocephalic, atraumatic. Eyes: EOMI. Anicteric, vision grossly intact. Ears: No ear discharge, Hearing grossly intact. Nose: No nasal discharge. Mouth/Throat: Oral mucosa moist. No obvious lesions in oropharynx. Neck: Tracheostomy tube in place. Cardiovascular: Difficult to auscultate. Seemingly regular rate with possibly irregular rhythm, no murmur, no JVD or carotid bruits. +S1/S2. Respiratory: Inspiratory rhonchi auscultated mostly on bilateral anterior lung louie. Reduced air entry of bilateral posterior lung louie. Respirations unlabored, no crackles, no wheezing. No accessory muscle use. Gastrointestinal: PEG tube in place at epigastrium. Tenderness to palpation of umbilicus, RUQ, and RLQ. Soft, non-distended, no palpable masses. No guarding or rebound tenderness. Peristalsis present. Extremities: Skin lesion noted at right lateral hip. Two corns present on plantar surface of right foot. Symmetrical, no significant deformities. No edema, no cyanosis, no clubbing. 2+ radial pulse bilaterally, 2+ posterior tibial pulse bilaterally. Objective Labs 01/03/25 11:16 01/03/25 11:16 Labs: Laboratory Results - last 24 hr 01/02/25 01/02/25 01/02/25 12:35 12:51 16:00 WBC RBC Hgb Hct MCV MCH MCHC RDW Std Deviation Plt Count Neut % (Auto) Lymph % (Auto) [place] % (Auto) Eos % (Auto) Baso % (Auto) Neut # (Auto) Lymph # (Auto) [place] # (Auto) Eos # (Auto) Baso # (Auto) Immature Gran # (Auto) Absolute Nucleated RBC Immature Gran % Nucleated RBC % Puncture Site ABG pH ABG pCO2 ABG pO2 ABG HCO3 ABG O2 Saturation ABG Base Excess Oxygen Liter Flow Sodium 138 Potassium 4.5 Chloride 103 Carbon Dioxide 26.8 Anion Gap 8 BUN 24 H Creatinine 1.6 H Estim Creat Clear Calc Not Performed. eGFR 42 L BUN/Creatinine Ratio 15 Glucose 192 H Calculated Osmolality 284 Lactic Acid 2.3 H Calcium 9.2 Corrected Calcium 9.3 Magnesium 2.1 Total Bilirubin 0.8 AST 69 H ALT 49 Alkaline Phosphatase 154 H Troponin I 0.081 H* 0.098 H* Total Protein 6.7 Albumin 3.9 Globulin 2.8 Albumin/Globulin Ratio 1.4 Triglycerides Cholesterol LDL Cholesterol, Calc HDL Cholesterol Cholesterol/HDL Ratio Lipase 20 Procalcitonin 0.10 TSH Ur Collection Type Catheter Urine Color Yellow Urine Clarity Clear Urine pH 5.5 Ur Specific [place] 1.022 Urine Protein Trace Urine Glucose (UA) Negative Urine Ketones Negative Urine Blood Negative Urine Nitrite Negative Urine Bilirubin Negative Urine Urobilinogen (Auto) Negative Ur Leukocyte Esterase Negative Urine RBC 1 Urine WBC 1 Ur Squamous Epith Cells 0 Urine Bacteria None Hyaline Casts < 1 Ur Culture Indicated? Not Indicated 01/02/25 01/02/25 01/03/25 16:32 19:00 11:16 WBC 12.5 H D RBC 3.93 L Hgb 12.9 L D Hct 39.1 L MCV 100 MCH 32.8 MCHC 33.0 RDW Std Deviation 48.4 H Plt Count 113 L D Neut % (Auto) 86 H Lymph % (Auto) 7 L [place] % (Auto) 7 Eos % (Auto) 0 Baso % (Auto) 0 Neut # (Auto) 10.7 H Lymph # (Auto) 0.8 L [place] # (Auto) 0.9 H Eos # (Auto) 0.0 Baso # (Auto) 0.1 Immature Gran # (Auto) 0.03 H Absolute Nucleated RBC 0.00 Immature Gran % 0 Nucleated RBC % 0 Puncture Site Right Radial ABG pH 7.29 L ABG pCO2 49 H ABG pO2 94 ABG HCO3 24 ABG O2 Saturation 98 ABG Base Excess -4 L Oxygen Liter Flow 15 Sodium 139 Potassium 4.6 Chloride 104 Carbon Dioxide 29.2 Anion Gap 6 L BUN 20 Creatinine 1.2 Estim Creat Clear Calc 54.2 L eGFR > 60 BUN/Creatinine Ratio 17 Glucose 100 D Calculated Osmolality 280 Lactic Acid 2.0 Calcium 8.2 L Corrected Calcium 9.2 Magnesium Total Bilirubin 0.6 AST 58 H ALT 34 Alkaline Phosphatase 98 D Troponin I 0.052 H* Total Protein 5.0 L Albumin 2.8 L D Globulin 2.2 L Albumin/Globulin Ratio 1.3 Triglycerides 77 Cholesterol 118 L LDL Cholesterol, Calc 67 HDL Cholesterol 36 L Cholesterol/HDL Ratio 3.3 L Lipase Procalcitonin TSH 14.66 H Ur Collection Type Urine Color Urine Clarity Urine pH Ur Specific [place] Urine Protein Urine Glucose (UA) Urine Ketones Urine Blood Urine Nitrite Urine Bilirubin Urine Urobilinogen (Auto) Ur Leukocyte Esterase Urine RBC Urine WBC Ur Squamous Epith Cells Urine Bacteria Hyaline Casts Ur Culture Indicated? ABG Interpretation ABG results: 01/02/25 16:32 ABG pH 7.29 L ABG pCO2 49 H ABG pO2 94 ABG HCO3 24 ABG O2 Saturation 98 ABG Base Excess -4 L Quality Measures Quality Measures sepsis Current suspected stage: ruled out Possible source: unknown Blood cultures ordered: yes Antibiotic ordered: Yes and none Advance care planning discussed with:: patient Assessment & Plan Assessment Current Active Medications: Generic Name Dose Route Start Last Admin Trade Name Freq PRN Reason Stop Dose Admin Acetaminophen 650 mg 01/02/25 16:59 Acetaminophen Damaris 325 Mg/10 Ml Udc PO 02/01/25 16:58 Q6HR PRN Pain 1-3 or Fever > 100.1 Hydrocodone Bitart/Acetaminophen 1 tab 01/02/25 16:28 Hydrocodone/Apap 5/325 Tablet PO 01/07/25 16:27 Q4HR PRN PAIN SCALE 4-10(Mod-Sev Albuterol 2.5 mg 01/02/25 16:17 Albuterol Rt 2.5 Mg/0.5 Ml Nebu INH 02/01/25 16:16 Q2HR PRN SHORTNESS OF BREATH OR WHEEZE Albuterol/Ipratropium 3 ml 01/03/25 12:43 Albuterol/Ipratropium (Duoneb) Rt Damaris 3 Ml Nebu INH 02/01/25 18:59 Q6HRRT PRN WHEEZING Apixaban 5 mg 01/03/25 10:15 01/03/25 10:47 Apixaban 2.5 Mg Tablet PO 01/24/25 10:14 5 mg BID BERNA Administration Balsam Maria Luz/[place] Oil 0 gm 01/03/25 21:00 Balsam [place] Lu[place] Oil (Venelex) 60 Gm Tube TOP 02/02/25 20:59 BID BERNA Guaifenesin 100 mg 01/02/25 17:45 01/03/25 05:11 Guaifenesin Syrup 200 Mg/10 Ml Udc GT 02/01/25 17:44 Not Given TID BERNA Protocol Haloperidol Lactate 0.5 mg 01/03/25 09:25 01/03/25 09:32 Haloperidol Lact Inj 5 Mg/Ml Vial IV 02/02/25 09:05 0.5 mg Q8HR PRN Administration AGITATION Azithromycin 500 mg/ Sodium 250 mls @ 250 mls/hr 01/03/25 09:00 01/03/25 09:32 Chloride IV 01/08/25 09:59 250 mls/hr QDAY BERNA Administration Ceftriaxone Sodium/Dextrose 1 gm in 50 mls @ 100 mls/hr 01/03/25 09:00 01/03/25 08:51 Rocephin/D5w 1gm Iv Premix IV 01/10/25 08:59 100 mls/hr QDAY BERNA Administration Midodrine 10 mg 01/03/25 07:45 01/03/25 08:16 Midodrine 5 Mg Tablet GT 02/02/25 07:44 10 mg TID BERNA Administration Morphine Sulfate 10 mg 01/03/25 08:10 Morphine Sulf Liqd 10 Mg/5 Ml Udc PO 01/08/25 08:09 QID PRN CANCER PAIN Protocol Ondansetron HCl 4 mg 01/02/25 16:17 Ondansetron Inj 2 Mg/Ml Inj 2 Ml IVP 02/01/25 16:16 Q6H PRN NAUSEA OR VOMITING Protocol Sennosides 1 tab 01/02/25 16:23 Senna Tablet PO 02/01/25 16:22 QDAY PRN constipation Protocol Sodium Chloride 3 ml 01/02/25 16:17 Sodium Chloride Rt Damaris 0.9% 3 Ml Nebu INH 02/01/25 16:16 PRN PRN SOLN Plan Kyree Felton is an 84-year-old male with a PMH of throat cancer, neck cancer, lung cancer, and hip fracture (6 months ago) who presents today with chief complaint of weakness. Patient was admitted for the work-up and management of acute hypoxic respiratory failure secondary to pneumonia. #Acute hypoxic respiratory failure, secondary to community-acquired pneumonia #Community-acquired pneumonia Patient met 0/4 SIRS criteria upon admission. Endorsed shortness of breath and dyspnea but denied fever and chest pain Required 10 L supplemental oxygen on admission to maintain SpO2 >93%, reportedly uses 5 L oxygen at home. PSI 113, risk class IV, 8.2-9.3% mortality, hospitalization recommended Dx: -Sputum culture pending, Gram Stain showed 4+ WBC, 2+ GPC, 2+ GNR, 2+ GVR, and 10-25 epithelial cells (likely contaminant) -BCx showed 2/2 [id number] -MRSA pending -Procalcitonin 0.10 Rx: -IV ceftriaxone 1g mg qD [01/02-01/06] -IV azithromycin 500 mg qD [01/02-01/04] -DuoNebs q2HR prn -Mucinex as needed -Chest physiotherapy -Supplemental O2, titrate as tolerated to maintain SpO2 >93% #BRANDON, likely prerenal (improving) #2/2 to intravascular depletion from dehydration 2/2 recent diarrhea Admission creatinine 1.6 (baseline: 0.9-1.0), eGFR 42 Creatinine now improved to 1.2 today Rx: -Fluid resuscitation as appropriate -Monitor renal panel -Avoid nephrotoxic agents (aminoglycosides, NSAIDs, radiographic contrast) -Adjust medication dosing based on patient's impaired renal function -Hold any OTTO/ARB/diuretics #NAGMA #Lactic acidosis (resolved) Admission ABG pH 7.29, pCO2 49, HCO3 24, anion gap 8 Admission LA 3.7, finally resolved at LA 2.0 @ 19:00, 01/02 Suspected 2/2 intravascular depletion from recent diarrhea Rx: -Treat underlying cause (likely hypoperfusion 2/2 intravascular depletion and hypoxemia in the setting of recent diarrheal illness and chronic hypotension) #Acute diarrheal illness 1 week duration of 4-5 episodes of watery, non-bloody diarrhea per day, afebrile had same symptoms for 2 weeks now Likely infectious etiology DDx: viral gastroenteritis (norovirus, Rotavirus), bacterial gastroenteritis Rx: -Fluid resuscitation as appropriate #Chronic hypotension Patient has chronically low BPs and is on home PO midodrine 10 mg TID In the setting of recent diarrheal illness ongoing for 1 week (4-5 loose, watery BMs per day) Rx: -Continue NG midodrine 10 mg TID -Fluid resuscitation as appropriate #Troponinemia, likely 2/2 demand ischemia (resolving) Admission troponin 0.081 Trend of 0.081 -> 0.098 -> 0.052 is characteristic of Type II NSTEMI (demand ischemia) due to low absolute value of troponin I and more gradual rise and fall Rx: -Treat underlying cause (likely demand ischemia 2/2 intravascular depletion and hypoxemia in the setting of recent diarrheal illness and chronic hypotension) #Transaminitis (resolving) Admission AST 69, ALT 49, alkaline phosphatase 154 Today, AST 58, ALT 34, alkaline phosphatase 98 Rx: -Treat underlying cause (likely hypoperfusion 2/2 intravascular depletion and hypoxemia in the setting of recent diarrheal illness and chronic hypotension) #Tracheostomy tube #PEG tube #Tube feeds via PEG tube Patient had both tracheostomy tube and PEG tube placed about 9 years ago 2/2 malignancies Rx: -Tube feed w/ Jevity 1.5 @ 20 mL/hr via PEG tube (advance 10 mL every 8 hours to goal rate of 60 mL/hr) and water flushes @ 40 mL/hr -Glucose checks q6HR #Hx of throat cancer #Hx of neck cancer #Hx of lung cancer Patient has history of throat cancer from 9 years ago that is in remission Neck and lung cancer are also said to be in remission Follow Dr. Alejandra in the outpatient setting #Reported hx of right leg DVT On home PO Eliquis 5 mg BID (however, seems to have been last filled in May 2024) Rx: -Switched to PO Eliquis 5 mg BID (previously, SC heparin 5K q8HR) #Chronic pain Patient takes home PO morphine 10 mg QID prn Rx: -Restarted home GT morphine 10 mg QID prn Hospital Management: Disposition: Admitted to [facility] for management of acute hypoxic respiratory failure secondary to pneumonia, has improved and planned for discharge tomorrow Diet: Tube feeds (Dietitian Referral ordered) GI Prophylaxis: IV Protonix 40 mg qD Bowel Prophylaxis: Senna DVT Prophylaxis: PO Eliquis CODE STATUS: DNI I have examined the patient and conferred with my attending, Dr. Stearns, and my senior resident, Dr. Chapin, regarding them. Ger Nobles, DO PGY-1 Internal Medicine
--- NOTE | 2025-01-03 14:27 | PC.SS ---
Rounding Note: Patient experiencing hospital delirium. Possible d/c home tomorrow.
--- NOTE | 2025-01-03 15:44 | ESPR_ITS ---
Documentation for date of: 01/03/25 Subjective Subjective Interval history: Patient was seen and assessed at bedside. Had no new complaints, denied chest pains, shortness of breath, palpitations, diarrhea. Exam was not able to be completed because patient became very agitated and did not want to stay in the hospital. Patient is currently receiving IV azithromycin and ceftriaxone for aspiration pneumonia. Continues to have frequent bigeminy PVCs on telemetry. Net -100 cc. WBC 12.5 (from 8.6), hemoglobin 12.9 (from 15.7), platelets 113 (from 151). Potassium 4.6, creatinine 1.2, magnesium 1.7, keep potassium above 4 and magnesium above 2. Troponin down trended 0.098-0.052. TSH elevated at 14.66. Exam Vital Signs Temp Pulse Resp BP Pulse Ox O2 Del Method O2 Flow Rate 97.0 F 74 16 90/51 L 91 L Blow-by 10 01/03/25 12:00 01/03/25 12:00 01/03/25 12:00 01/03/25 12:00 01/03/25 12:00 01/03/25 07:25 01/03/25 07:25 FiO2 40 01/03/25 06:10 Narrative Exam Physical Exam General: Awake and in no acute distress. Able to answer questions appropriately but has difficulty speaking with tracheostomy tube. HEENT: Normocephalic, atraumatic, mucous membranes moist. Tracheostomy present, poor dentition. Heart: Regular rate and rhythm, normal S1 and S2, no murmurs. Lungs: Decreased breath sounds in lower lobes bilaterally. Abdomen: Soft, nondistended, nontender, positive bowel sounds. No guarding or rebound tenderness. PEG tube present in central abdomen. Crusting around insertion site. Neurologic: Alert and oriented x2 (oriented to self and time, not to place), no gross neurological deficit, and patient able to move all 4 extremities. Extremities: No edema. Skin: No rash or ecchymoses. Objective Labs 01/03/25 11:16 01/03/25 11:16 Labs: Laboratory Results - last 24 hr 01/02/25 01/02/25 01/02/25 16:00 16:32 19:00 WBC RBC Hgb Hct MCV MCH MCHC RDW Std Deviation Plt Count Neut % (Auto) Lymph % (Auto) [place] % (Auto) Eos % (Auto) Baso % (Auto) Neut # (Auto) Lymph # (Auto) [place] # (Auto) Eos # (Auto) Baso # (Auto) Immature Gran # (Auto) Absolute Nucleated RBC Immature Gran % Nucleated RBC % Puncture Site Right Radial ABG pH 7.29 L ABG pCO2 49 H ABG pO2 94 ABG HCO3 24 ABG O2 Saturation 98 ABG Base Excess -4 L Oxygen Liter Flow 15 Sodium Potassium Chloride Carbon Dioxide Anion Gap BUN Creatinine Estim Creat Clear Calc eGFR BUN/Creatinine Ratio Glucose Calculated Osmolality Lactic Acid 2.3 H 2.0 Calcium Corrected Calcium Total Bilirubin AST ALT Alkaline Phosphatase Troponin I 0.098 H* Total Protein Albumin Globulin Albumin/Globulin Ratio Triglycerides Cholesterol LDL Cholesterol, Calc HDL Cholesterol Cholesterol/HDL Ratio TSH 01/03/25 11:16 WBC 12.5 H D RBC 3.93 L Hgb 12.9 L D Hct 39.1 L MCV 100 MCH 32.8 MCHC 33.0 RDW Std Deviation 48.4 H Plt Count 113 L D Neut % (Auto) 86 H Lymph % (Auto) 7 L [place] % (Auto) 7 Eos % (Auto) 0 Baso % (Auto) 0 Neut # (Auto) 10.7 H Lymph # (Auto) 0.8 L [place] # (Auto) 0.9 H Eos # (Auto) 0.0 Baso # (Auto) 0.1 Immature Gran # (Auto) 0.03 H Absolute Nucleated RBC 0.00 Immature Gran % 0 Nucleated RBC % 0 Puncture Site ABG pH ABG pCO2 ABG pO2 ABG HCO3 ABG O2 Saturation ABG Base Excess Oxygen Liter Flow Sodium 139 Potassium 4.6 Chloride 104 Carbon Dioxide 29.2 Anion Gap 6 L BUN 20 Creatinine 1.2 Estim Creat Clear Calc 54.2 L eGFR > 60 BUN/Creatinine Ratio 17 Glucose 100 D Calculated Osmolality 280 Lactic Acid Calcium 8.2 L Corrected Calcium 9.2 Total Bilirubin 0.6 AST 58 H ALT 34 Alkaline Phosphatase 98 D Troponin I 0.052 H* Total Protein 5.0 L Albumin 2.8 L D Globulin 2.2 L Albumin/Globulin Ratio 1.3 Triglycerides 77 Cholesterol 118 L LDL Cholesterol, Calc 67 HDL Cholesterol 36 L Cholesterol/HDL Ratio 3.3 L TSH 14.66 H ABG Interpretation ABG results: 01/02/25 16:32 ABG pH 7.29 L ABG pCO2 49 H ABG pO2 94 ABG HCO3 24 ABG O2 Saturation 98 ABG Base Excess -4 L Quality Measures Quality Measures sepsis Current suspected stage: ruled out Possible source: unknown Blood cultures ordered: yes Antibiotic ordered: Yes and none Advance care planning discussed with:: patient Assessment & Plan Assessment Current Active Medications: Generic Name Dose Route Start Last Admin Trade Name Freq PRN Reason Stop Dose Admin Acetaminophen 650 mg 01/02/25 16:59 Acetaminophen Damaris 325 Mg/10 Ml Udc PO 02/01/25 16:58 Q6HR PRN Pain 1-3 or Fever > 100.1 Hydrocodone Bitart/Acetaminophen 1 tab 01/02/25 16:28 Hydrocodone/Apap 5/325 Tablet PO 01/07/25 16:27 Q4HR PRN PAIN SCALE 4-10(Mod-Sev Albuterol 2.5 mg 01/02/25 16:17 Albuterol Rt 2.5 Mg/0.5 Ml Nebu INH 02/01/25 16:16 Q2HR PRN SHORTNESS OF BREATH OR WHEEZE Albuterol/Ipratropium 3 ml 01/03/25 12:43 Albuterol/Ipratropium (Duoneb) Rt Damaris 3 Ml Nebu INH 02/01/25 18:59 Q6HRRT PRN WHEEZING Apixaban 5 mg 01/03/25 10:15 01/03/25 10:47 Apixaban 2.5 Mg Tablet PO 01/24/25 10:14 5 mg BID BERNA Administration Balsam [place] Oil 0 gm 01/03/25 21:00 Balsam Maria Luz/[place] Oil (Venelex) 60 Gm Tube TOP 02/02/25 20:59 BID BERNA Guaifenesin 100 mg 01/02/25 17:45 01/03/25 05:11 Guaifenesin Syrup 200 Mg/10 Ml Udc GT 02/01/25 17:44 Not Given TID BERNA Protocol Haloperidol Lactate 0.5 mg 01/03/25 09:25 01/03/25 09:32 Haloperidol Lact Inj 5 Mg/Ml Vial IV 02/02/25 09:05 0.5 mg Q8HR PRN Administration AGITATION Azithromycin 500 mg/ Sodium 250 mls @ 250 mls/hr 01/03/25 09:00 01/03/25 09:32 Chloride IV 01/08/25 09:59 250 mls/hr QDAY BERNA Administration Ceftriaxone Sodium/Dextrose 1 gm in 50 mls @ 100 mls/hr 01/03/25 09:00 01/03/25 08:51 Rocephin/D5w 1gm Iv Premix IV 01/10/25 08:59 100 mls/hr QDAY BERNA Administration Midodrine 10 mg 01/03/25 07:45 01/03/25 08:16 Midodrine 5 Mg Tablet GT 02/02/25 07:44 10 mg TID BERNA Administration Morphine Sulfate 10 mg 01/03/25 08:10 Morphine Sulf Liqd 10 Mg/5 Ml Udc PO 01/08/25 08:09 QID PRN CANCER PAIN Protocol Ondansetron HCl 4 mg 01/02/25 16:17 Ondansetron Inj 2 Mg/Ml Inj 2 Ml IVP 02/01/25 16:16 Q6H PRN NAUSEA OR VOMITING Protocol Sennosides 1 tab 01/02/25 16:23 Senna Tablet PO 02/01/25 16:22 QDAY PRN constipation Protocol Sodium Chloride 3 ml 01/02/25 16:17 Sodium Chloride Rt Damaris 0.9% 3 Ml Nebu INH 02/01/25 16:16 PRN PRN SOLN Plan Patient is an 82-year-old male with past medical history of Stage IVc, P16+, 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 Cardiology consulted by ED provider as patient follows with clinic outpatient. #HFpEF (EF 55-60%) (06/18/2024) #Grade I diastolic dysfunction Reports increased shortness of breath but appeared dehydratioed. No pitting edema on exam, unlikely in CHF exacerbation. Not on any GDMT as patient is chronically hypotensive. On admission, BNP 208, previously 58 in 08/2023. Echo 06/18/24 showed normal LV size and function with an EF 55-60%. Diastolic Dysfunction stage I. Normal RV size and function appears normal with RVSP 25-30 mmHg. Mild MR & MAC and Mild TR. Mild Aortic valve sclerosis without stenosis. -Acceptable gentle fluid resuscitation as patient is likely volume depleted from diarrheal illness -Continue to monitor renal function and for signs of fluid overload on physical exam -Strict ins and outs -Daily weights -Supplemental O2 as needed, wean as tolerated #NSTEMI type II #Elevated troponins Denied chest pain and upper abdominal pain on admission. Troponin 0.081 > 0.098 > 0.052. EKG showed sinus rhythm with frequent bigeminy PVCs, which has been chronic for him since his femoral neck repair in May 2024. No ST or T wave abnormalities noted. Echo 06/18/24 showed normal LV size and function with an EF 55-60%. Diastolic Dysfunction stage I. Normal RV size and function appears normal with RVSP 25-30 mmHg. Mild MR & MAC and Mild TR. Mild Aortic valve sclerosis without stenosis. Nuclear stress test 02/2024 in office showed mildly decreased uptake in inferior lateral leads which was secondary to artifact from increased gut intake during stress test. Likely demand ischemia 2/2 intravascular depletion and hypoxemia in the setting of recent diarrheal illness. Check TSH A1c and lipid profile for further cardiac risk stratification. Repeat echo to rule out any regional wall motion abnormalities and evaluate the ejection fraction, LV function and RV function. ?Gentle fluid resuscitation as above #BRANDON, prerenal #Diarrhea #Generalized body aches Reports 1 week of diarrhea with associated body aches. Patient's also reports similar symptoms, suspect GI viral infection. Likely cause for BRANDON, creatinine 1.6 on admission (baseline 1.0). - Gentle fluid resuscitation as above #Hx of frequent PVCs/bigeminy EKG showed sinus rhythm with frequent bigeminy PVCs, which has been chronic for him since his femoral neck repair in May 2024. Continues to be in bigeminy with frequent PVCs on telemetry. -No pharmacological intervention needed at this time as patient is asymptomatic. -Continue to replete potassium and magnesium => keep K >4, mag >2 -No BB oor CCB or amio as pt has history of bradycardia. 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 Patient plan of care was discussed with the attending physician, Dr. Mccormick. Savita Morfin, PGY-1 Attending Provider Attestation/Addendum I have personally seen and examined the patient separately on the above date of service and discussed the plan of care with the resident. I reviewed the resident Dr. Savita Morfin consultation progress note and agree with the resident findings and plan in the note above and have also edited the documentation to reflect my findings and plan. Oliverio Mccormick M.D. Interventional Cardiology
[2025-01-03] MEDS: guaiFENesin SYRUP 200 MG/10 ML UDC 100 MG GT ×2 (15:50→21:12)
[2025-01-03 16:02] LABS: Magnesium 1.7 mg/dL (1.6-2.6)
[2025-01-03] MEDS: APIXABAN 2.5 MG TABLET 5 MG GT (21:11)
[2025-01-03] MEDS: BALSAM PERU/CASTOR OIL (Venelex) 60 GM TUBE TOP (21:11)
[2025-01-04] VITALS (8 sets, daily range): BP systolic 101–134; BP diastolic 58–72; PULSE 68–81; RESP 14–20; TEMP 36.1–36.5; O2SAT 94–99
--- NOTE | 2025-01-04 03:10 | PC.NURSE ---
MT reported that pt had couplets for about 5 min, Dr. Marshall was made aware, new orders for pt. See MAR.
[2025-01-04] MEDS: Magnesium Sulfate 2 GM Ivpb 2 GM/50 ML BAG IV (03:18)
[2025-01-04] MEDS: MIDODRINE 5 MG TABLET 10 MG GT ×2 (05:20→13:10)
[2025-01-04] MEDS: guaiFENesin SYRUP 200 MG/10 ML UDC 100 MG GT ×2 (05:20→13:09)
[2025-01-04 05:30] LABS: Basophils # (Auto) 0.0 Thou/mm3 (0.0-0.2); Basophils % (Auto) 1 % (0-2.5); Eosinophils # (Auto) 0.1 Thou/mm3 (0.0-0.5); Eosinophils % (Auto) 2 % (0-10); Hematocrit 38.8 % (41.0-53.0); Hemoglobin 12.9 g/dL (13.5-16.0); Immature Granulocytes Auto 0.03 Thou/mm3 (0.00-0.00); Lymphocytes # (Auto) 0.8 Thou/mm3 (1.0-4.8); Lymphocytes % (Auto) 10 % (10-50); Mean Corpuscular HGB Conc 33.2 g/dl (31.0-37.0); Mean Corpuscular Hemoglobin 32.9 pg (25.0-35.0); Mean Corpuscular Volume 99 fL (80-100); Monocytes # (Auto) 0.8 Thou/mm3 (0.0-0.8); Monocytes % (Auto) 10 % (0-12); Neutrophils # (Auto) 6.1 Thou/mm3 (1.8-7.7); Neutrophils % (Auto) 78 % (37-80); Nucleated Red Blood Cell # 0.00 Thou/mm3 (0.00-0.00); Nucleated Red Blood Cell % 0 /100 WBC (0); Platelet Count 96 Thou/mm3 (140-440); RDW Standard Deviation 47.3 fL (35.1-43.9); Red Blood Count 3.92 Miln/mm3 (4.50-5.90); White Blood Count 7.9 Thou/mm3 (3.8-10.6)
[2025-01-04 06:02] LABS: Alanine Aminotransferase 28 U/L (10-49); Albumin, Serum 2.7 gm/dL (3.4-4.8); Albumin/Globulin Ratio 1.2 (1.2-2.2); Alkaline Phosphatase 90 U/L (46-116); Anion Gap 8 (7-16); Aspartate Amino Transferase 53 U/L (0-34); BUN/Creatinine Ratio 14 Ratio (12-20); Bilirubin,Total 0.7 mg/dL (0.3-1.2); Blood Urea Nitrogen 14 mg/dL (9-23); Calcium 8.2 mg/dL (8.3-10.6); Calcium (Corrected) 9.2 mg/dL (8.5-10.1); Carbon Dioxide 28.5 mMol/L (20.0-31.0); Chloride 104 mMol/L (98-107); Creatinine (Component) 1.0 mg/dL (0.6-1.3); Estimated Creatinine Clearance 65.1 mL/min (>60); Free T4 (Free Thyroxine) 0.68 ng/dL (0.89-1.76); Globulin 2.2 gm/dL (2.3-3.5); Glucose 118 mg/dL (74-106); Magnesium 1.7 mg/dL (1.6-2.6); Osmolality,Calculated 280 (275-295); Phosphorous 2.0 mg/dL (2.4-5.1); Potassium 4.1 mMol/L (3.4-5.1); Sodium 140 mMol/L (136-145); Total Protein 4.9 gm/dL (5.7-8.2); eGFR > 60 See Note
[2025-01-04] MEDS: cefTRIAXone/D5w 1gm IV premix 1 GM/50 ML BAG IV (08:36)
[2025-01-04] MEDS: APIXABAN 2.5 MG TABLET 5 MG GT (08:36)
[2025-01-04] MEDS: LEVOTHYROXINE SODIUM 25 MCG TABLET PO (08:36)
--- NOTE | 2025-01-04 09:21 | PD.RESPRO ---
Documentation for date of: 01/04/25 Subjective Subjective Interval history: Patient seen and assessed at bedside. Reports increased sputum production but otherwise no new complaints. Denied chest pain, worsening shortness of breath, and palpitations. Continues to have good urine output via [place]. BP 116/58 this morning systolics in 90s overnight. HR 60-70s. Net -1500 over the past 24 hours. WBC (7.9 from 12.5), Hgb (12.9 from 15.7), and platelets (96 from 113) decreased, likely secondary to IV fluid resuscitation. Potassium 4.1, magnesium 1.7, replete accordingly. Exam Vital Signs Temp Pulse Resp BP Pulse Ox O2 Del Method O2 Flow Rate 97.6 F 76 14 101/59 L 97 Blow-by 9 01/04/25 08:00 01/04/25 08:00 01/04/25 08:00 01/04/25 08:00 01/04/25 08:00 01/04/25 08:00 01/04/25 08:00 FiO2 40 01/03/25 18:28 Narrative Exam Physical Exam General: Awake and in no acute distress. Able to answer questions appropriately but has difficulty speaking with tracheostomy tube. HEENT: Normocephalic, atraumatic, mucous membranes moist. Tracheostomy present, poor dentition. Heart: Regular rate and rhythm, normal S1 and S2, no murmurs. Lungs: Decreased breath sounds in lower lobes bilaterally, upper airway sounds transmitted in upper lobes. Abdomen: Soft, nondistended, nontender, positive bowel sounds. No guarding or rebound tenderness. PEG tube present in central abdomen. Crusting around insertion site. Neurologic: Alert and oriented x2 (oriented to self and time, not to place), no gross neurological deficit, and patient able to move all 4 extremities. Extremities: No edema. Skin: No rash or ecchymoses. Objective Labs 01/04/25 04:34 01/04/25 04:34 Labs: Laboratory Results - last 24 hr 01/03/25 01/03/25 01/04/25 11:16 15:36 04:34 WBC 12.5 H D 7.9 RBC 3.93 L 3.92 L Hgb 12.9 L D 12.9 L Hct 39.1 L 38.8 L MCV 100 99 MCH 32.8 32.9 MCHC 33.0 33.2 RDW Std Deviation 48.4 H 47.3 H Plt Count 113 L D 96 L Neut % (Auto) 86 H 78 Lymph % (Auto) 7 L 10 [place] % (Auto) 7 10 Eos % (Auto) 0 2 Baso % (Auto) 0 1 Neut # (Auto) 10.7 H 6.1 Lymph # (Auto) 0.8 L 0.8 L [place] # (Auto) 0.9 H 0.8 Eos # (Auto) 0.0 0.1 Baso # (Auto) 0.1 0.0 Immature Gran # (Auto) 0.03 H 0.03 H Absolute Nucleated RBC 0.00 0.00 Immature Gran % 0 0 Nucleated RBC % 0 0 Sodium 139 140 Potassium 4.6 4.1 D Chloride 104 104 Carbon Dioxide 29.2 28.5 Anion Gap 6 L 8 BUN 20 14 Creatinine 1.2 1.0 Estim Creat Clear Calc 54.2 L 65.1 eGFR > 60 > 60 BUN/Creatinine Ratio 17 14 Glucose 100 D 118 H Calculated Osmolality 280 280 Calcium 8.2 L 8.2 L Corrected Calcium 9.2 9.2 Phosphorus 2.0 L Magnesium 1.7 1.7 Total Bilirubin 0.6 0.7 AST 58 H 53 H ALT 34 28 Alkaline Phosphatase 98 D 90 Troponin I 0.052 H* Total Protein 5.0 L 4.9 L Albumin 2.8 L D 2.7 L Globulin 2.2 L 2.2 L Albumin/Globulin Ratio 1.3 1.2 Triglycerides 77 Cholesterol 118 L LDL Cholesterol, Calc 67 HDL Cholesterol 36 L Cholesterol/HDL Ratio 3.3 L TSH 14.66 H Free T4 0.68 L ABG Interpretation ABG results: 01/02/25 16:32 ABG pH 7.29 L ABG pCO2 49 H ABG pO2 94 ABG HCO3 24 ABG O2 Saturation 98 ABG Base Excess -4 L Quality Measures Quality Measures sepsis Current suspected stage: ruled out Possible source: unknown Blood cultures ordered: yes Antibiotic ordered: Yes and none Advance care planning discussed with:: patient Assessment & Plan Assessment Current Active Medications: Generic Name Dose Route Start Last Admin Trade Name Freq PRN Reason Stop Dose Admin Acetaminophen 650 mg 01/02/25 16:59 Acetaminophen Damaris 325 Mg/10 Ml Udc PO 02/01/25 16:58 Q6HR PRN Pain 1-3 or Fever > 100.1 Hydrocodone Bitart/Acetaminophen 1 tab 01/02/25 16:28 Hydrocodone/Apap 5/325 Tablet PO 01/07/25 16:27 Q4HR PRN PAIN SCALE 4-10(Mod-Sev Albuterol 2.5 mg 01/02/25 16:17 Albuterol Rt 2.5 Mg/0.5 Ml Nebu INH 02/01/25 16:16 Q2HR PRN SHORTNESS OF BREATH OR WHEEZE Albuterol/Ipratropium 3 ml 01/03/25 12:43 Albuterol/Ipratropium (Duoneb) Rt Damaris 3 Ml Nebu INH 02/01/25 18:59 Q6HRRT PRN WHEEZING Apixaban 5 mg 01/03/25 21:00 01/04/25 08:36 Apixaban 2.5 Mg Tablet GT 01/24/25 20:59 5 mg BID BERNA Administration Balsam [place]inkley Oil 0 gm 01/03/25 21:00 01/03/25 21:11 Balsam [place]inkley Oil (Venelex) 60 Gm Tube TOP 02/02/25 20:59 1 appln BID BERNA Administration Guaifenesin 100 mg 01/02/25 17:45 01/04/25 05:20 Guaifenesin Syrup 200 Mg/10 Ml Udc GT 02/01/25 17:44 100 mg TID BERNA Administration Protocol Haloperidol Lactate 0.5 mg 01/03/25 09:25 01/03/25 21:34 Haloperidol Lact Inj 5 Mg/Ml Vial IV 02/02/25 09:05 0.5 mg Q8HR PRN Administration AGITATION Azithromycin 500 mg/ Sodium 250 mls @ 250 mls/hr 01/03/25 09:00 01/03/25 09:32 Chloride IV 01/08/25 09:59 250 mls/hr QDAY BERNA Administration Ceftriaxone Sodium/Dextrose 1 gm in 50 mls @ 100 mls/hr 01/03/25 09:00 01/04/25 08:36 Rocephin/D5w 1gm Iv Premix IV 01/10/25 08:59 100 mls/hr QDAY BERNA Administration Levothyroxine Sodium 25 mcg 01/04/25 08:30 01/04/25 08:36 Levothyroxine Sodium 25 Mcg Tablet PO 02/03/25 08:29 25 mcg ACBR BERNA Administration Midodrine 10 mg 01/03/25 07:45 01/04/25 05:20 Midodrine 5 Mg Tablet GT 02/02/25 07:44 10 mg TID BERNA Administration Morphine Sulfate 10 mg 01/03/25 08:10 Morphine Sulf Liqd 10 Mg/5 Ml Udc PO 01/08/25 08:09 QID PRN CANCER PAIN Protocol Ondansetron HCl 4 mg 01/02/25 16:17 Ondansetron Inj 2 Mg/Ml Inj 2 Ml IVP 02/01/25 16:16 Q6H PRN NAUSEA OR VOMITING Protocol Sennosides 1 tab 01/02/25 16:23 Senna Tablet PO 02/01/25 16:22 QDAY PRN constipation Protocol Sodium Chloride 3 ml 01/02/25 16:17 Sodium Chloride Rt Damaris 0.9% 3 Ml Nebu INH 02/01/25 16:16 PRN PRN SOLN Plan Patient is an 82-year-old male with past medical history of Stage IVc, P16+, 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 Cardiology consulted by ED provider as patient follows with clinic outpatient. #HFpEF (EF 55-60%) (06/18/2024) #Grade I diastolic dysfunction Reports increased shortness of breath but appeared dehydratioed. No pitting edema on exam, unlikely in CHF exacerbation. Not on any GDMT as patient is chronically hypotensive. On admission, BNP 208, previously 58 in 08/2023. Echo 06/18/24 showed normal LV size and function with an EF 55-60%. Diastolic Dysfunction stage I. Normal RV size and function appears normal with RVSP 25-30 mmHg. Mild MR & MAC and Mild TR. Mild Aortic valve sclerosis without stenosis. -Acceptable gentle fluid resuscitation as patient is likely volume depleted from diarrheal illness -Continue to monitor renal function and for signs of fluid overload on physical exam -Strict ins and outs -Daily weights -Supplemental O2 as needed, wean as tolerated #NSTEMI type II #Elevated troponins Denied chest pain and upper abdominal pain on admission. Troponin 0.081 > 0.098 > 0.052. TSH 14.66, T4 0.68. Lipid panel shows total cholesterol 118, LD 67, HDL 36. EKG showed sinus rhythm with frequent bigeminy PVCs, which has been chronic for him since his femoral neck repair in May 2024. No ST or T wave abnormalities noted. Echo 06/18/24 showed normal LV size and function with an EF 55-60%. Diastolic Dysfunction stage I. Normal RV size and function appears normal with RVSP 25-30 mmHg. Mild MR & MAC and Mild TR. Mild Aortic valve sclerosis without stenosis. Nuclear stress test 02/2024 in office showed mildly decreased uptake in inferior lateral leads which was secondary to artifact from increased gut intake during stress test. Likely demand ischemia 2/2 intravascular depletion and hypoxemia in the setting of recent diarrheal illness. - Pending A1c - Repeat echo to rule out any regional wall motion abnormalities and evaluate the ejection fraction, LV function and RV function. ?Gentle fluid resuscitation as above #BRANDON, prerenal #Diarrhea #Generalized body aches #Hypomagnesemia Reports 1 week of diarrhea with associated body aches. Patient's also reports similar symptoms, suspect GI viral infection. Likely cause for BRANDON, creatinine 1.6 on admission (baseline 1.0). - Gentle fluid resuscitation as above - Patient should be on magnesium supplements going home. #Hx of frequent PVCs/bigeminy EKG showed sinus rhythm with frequent bigeminy PVCs, which has been chronic for him since his femoral neck repair in May 2024. Continues to be in bigeminy with frequent PVCs on telemetry. -No pharmacological intervention needed at this time as patient is asymptomatic. -Continue to replete potassium and magnesium => keep K >4, mag >2 -No BB oor CCB or amio as pt has history of bradycardia. 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 Patient plan of care was discussed with the attending physician, Dr. Mccormick. Savita Morfin, PGY-1 Attending Provider Attestation/Addendum I have personally seen and examined the patient separately on the above date of service and discussed the plan of care with the resident. I reviewed the resident Dr. Savita Morfin consultation progress note and agree with the resident findings and plan in the note above and have also edited the documentation to reflect my findings and plan. Oliverio Mccormick M.D. Interventional Cardiology
[2025-01-04] MEDS: AZITHROMYCIN INJ 500 MG in SODIUM CHLORIDE 0.9% 250 ML 250 ML 250 MG IV (09:40)
[2025-01-04 09:58] LABS: Glucose Estimated Average 103 mg/dL (80-131); Hemoglobin A1C 5.2 % Hgb (4.8-6.0)
--- NOTE | 2025-01-04 11:44 | ESDS_ITS ---
<Statement entered by Felipe Stearns MD - 01/09/25 12:11> I reviewed above note and agree with findings and plans. I have also personally examined the patient with medicine team and went over assessment and plan with medical team including risk management intern and resident physician. Planned Discharge Date 01/04/25 DS: Providers Provider Date of admission: 01/02/25 16:18 Primary care physician: Fabian Morales MD Admitting Provider: Felipe Stearns MD Attending Provider on Admission: Felipe Stearns MD Consults: 01/02/25 16:57 Referral Registered Dietitian Routine Comment: for tube feeds 01/03/25 03:03 Referral Registered Dietitian Routine Comment: Instructions: tube feeds 01/03/25 03:18 Referral Wound Care Routine Comment: Instructions: new admit from home, trach patient with stage 2 to right hip Attending Provider on DC: Ger Nobles MD Discharging Provider: Ger Nobles MD DS: Diagnosis Problem List Completed Was Problem List Reviewed/Reconciled?: Yes Hospital Course Hospital Course Hospital course: Summary: Kyree Felton is an 84-year-old male with a PMH of throat cancer, neck cancer, lung cancer, and hip fracture (6 months ago) who presents today with chief complaint of weakness and eventually admitted for work-up and management of acute hypoxic respiratory failure 2/2 pneumonia. ER: In the ED, vitals showed: BP 93/61 HR 88 RR 14 Temp 99.2 SpO2 95% on 10 L oxygen mask CBC showed platelet count 151 but was otherwise WNL. Coagulation panel was WNL. ABG of right radial artery showed acidotic pH 7.29, pCO2 49, PaO2 94, HCO3 24. CMP showed BUN 24, creatinine 1.6, eGFR 42, blood glucose 192, lactic acid 3.7, AST 69, ALT 49, alkaline phosphatase 154, troponin I 0.081, BNP 208, lipase 20, and procalcitonin 0.10. UA was bland. 01/02 CXR showed atelectasis and possible early pneumonia of the left base. 01/02 EKG showed sinus rhythm of rate 91 with frequent VPCs. 01/02 CAP CTA showed prominent bibasilar pneumonia (possibly aspiration pneumonia), colonic diverticulosis without diverticulitis, urinary bladder wall thickening possibly suggestive of cystitis, moderate prostatomegaly, moderate renal parenchymal scar formation, absent gallbladder, normal appendix, and no pulmonary artery emboli. In the ED, patient was given IV ceftriaxone, IV azithromycin, 1.5 L LR bolus, and restarted on home midodrine 10 mg. Hospital: During patient's hospital course, he was treated with IV ceftriaxone and azithromycin and given breathing treatments for his community-acquired pneumonia. He was also noted to have developed an BRANDON, lactic acidosis, mild troponinemia, and transaminitis likely 2/2 intravascular depletion from diarrhea-induced dehydration; for the above, he was fluid resuscitated which resolved the aforementioned conditions. On 01/04/25, he was deemed clinically stabilized and discharged with PO doxycycline and Augmentin to be taken in the outpatient setting for his infection as well as PO levothyroxine for his hypothyroidism. Patient is safe to discharge to home. Further discharge instructions below. Instructions: -Please complete course of antibiotics for an additional 7 more days. -Please continue Leovthyroxine 25 mcg, 1 hour before any food. Please follow up with primary care provider or endocrinology for TSH follow and Levothyroxine adjustments. -Continue Eliquis 5 mg via G-tube given history of DVT. Stop if bleeding is noted. -Please follow up with your primary care provider within one week of discharge -If your symptoms worsen,please seek immediate medical attention and return to your nearest emergency room -If you do not have a primary care provider, you may follow up at the [facility] at [address] [place] [address] [address], [place] [address], #Acute hypoxic respiratory failure, secondary to community-acquired pneumonia #Community-acquired pneumonia #BRANDON, likely prerenal #2/2 to intravascular depletion from dehydration 2/2 recent diarrhea #NAGMA #Lactic acidosis #Acute diarrheal illness #Chronic hypotension #Troponinemia, likely 2/2 demand ischemia #Transaminitis #Tracheostomy tube #PEG tube #Hx of throat cancer #Hx of neck cancer #Hx of lung cancer #Reported hx of right leg DVT Status at Discharge Cognitive/Behavioral Status at Discharge: stable Functional Status at Discharge: independent ambulation Overall Status at Discharge: patient is back to baseline Patient's care plan was discussed with my attending, Dr. Stearns, and senior resident, Dr. Chapin. Ger Nobles, DO Internal Medicine, PGY-1 - The patient's plan was discussed with attending Dr. Jinny Chapin MD PGY2 Internal Medicine Time Spent with Patient Time attestation: Total time spent providing and/or coordinating discharge services: Time spent: Greater than 30 minutes Exam Vital Signs Temp Pulse Resp BP Pulse Ox O2 Del Method O2 Flow Rate 97.6 F 76 14 101/59 L 97 Blow-by 9 01/04/25 08:00 01/04/25 08:00 01/04/25 08:00 01/04/25 08:00 01/04/25 08:00 01/04/25 08:00 01/04/25 08:00 FiO2 40 01/03/25 18:28 Narrative Exam General: A/O x 3. Frail, elderly male in NAD. Skin: Warm, dry, intact, no obvious rash. Head: Normocephalic, atraumatic. Eyes: EOMI. Anicteric, vision grossly intact. Ears: No ear discharge, Hearing grossly intact. Nose: No nasal discharge. Mouth/Throat: Oral mucosa moist. No obvious lesions in oropharynx. Neck: Tracheostomy tube in place. Cardiovascular: Difficult to auscultate. Seemingly regular rate with possibly irregular rhythm, no murmur, no JVD or carotid bruits. +S1/S2. Respiratory: Bilateral lung louie clear to auscultation. Respirations unlabored, no crackles, no wheezing. No accessory muscle use. Gastrointestinal: PEG tube in place at epigastrium. Soft, non-tender, non- distended, no palpable masses. No guarding or rebound tenderness. Peristalsis present. Extremities: Skin lesion noted at right lateral hip. Two corns present on plantar surface of right foot. Symmetrical, no significant deformities. No edema, no cyanosis, no clubbing. 2+ radial pulse bilaterally, 2+ posterior tibial pulse bilaterally. Discharge Plan Plan Patient Disposition: HOME (Self Care) Patient condition on transfer: Stable Care Plan Goals: Instructions: -Please complete course of antibiotics for an additional 7 mor days. -Please continue Leovthyroxine 25 mcg, 1 hour before any food. Please follow up with primary care provider or endocrinology for TSH follow and Levothyroxine adjustments. -Continue Eliquis 5 mg via G-tube given history of DVT. Stop if bleeding is noted. -Please follow up with your primary care provider within one week of discharge -If your symptoms worsen,please seek immediate medical attention and return to your nearest emergency room -If you do not have a primary care provider, you may follow up at [facility] [address], [place] [address], Prescriptions/Referrals Prescriptions/Med Rec: New doxycycline hyclate 100 mg tablet 100 mg PO BID 7 Days Qty: 14 0RF amoxicillin-pot clavulanate 500-125 mg tablet 1 tab PO TID 7 Days Qty: 21 0RF levothyroxine 25 mcg Tablet 25 mcg PO ACBR 30 Days Qty: 30 0RF Eliquis 2.5 mg Tablet 5 mg G-tube BID 30 Days Qty: 120 0RF Continued morphine concentrate 100 mg/5 mL (20 mg/mL) solution 0.5 ml PO QID PRN (Reason: Pain) Patient Comments: TAKE 0.5 ML BY MOUTH EVERY 6 HOURS NEEDED midodrine 10 mg tablet 10 mg feeding tube TID Patient Comments: TAKE TWO TABLETS BY MOUTH THREE TIMES DAILY FOR THE HEART melatonin 3 mg Tablet 3 mg PO HS Qty: 60 0RF Referrals: Fabian Morales MD [Primary Care Provider, Family Practice] Patient/Caregiver Discharge Instructions Education Materials: ED Pneumonia (Adult) Print Language: Macedonian Stand Alone Forms: Shima Award Info., Patient Portal Info Letter Discharge Order Discharge Orders: Discharge (Routine); Ordered 01/04/25 Ordered By: Caro Chapin Quality Discharge Quality Measures VTE prophylaxis
--- NOTE | 2025-01-04 15:04 | PC.SS ---
Rounding Note: Plan is to d/c patient home today.
== END 2025-01-04 16:08 | disposition home or self-care (01) | DRG 193 ==
LOC: SERX 15:58 → SERHOLD 16:45 → S2NX 01-03 02:21
PROVIDERS: Admitting Provider Internal Medicine; Emergency Provider Emergency Medicine; PCP Family Medicine; Visit Provider Internal Medicine
DX: J18.9 Pneumonia, unspecified organism (principal); J96.21 Acute and chronic respiratory failure with hypoxia; N17.9 Acute kidney failure, unspecified; E87.29 Other acidosis; I24.89 Other forms of acute ischemic heart disease; I50.32 Chronic diastolic (congestive) heart failure; I49.3 Ventricular premature depolarization; E86.0 Dehydration; I95.89 Other hypotension; R74.01 Elevation of levels of liver transaminase levels; E03.9 Hypothyroidism, unspecified; G89.29 Other chronic pain; R91.8 Other nonspecific abnormal finding of lung field; R59.0 Localized enlarged lymph nodes; J69.0 Pneumonitis due to inhalation of food and vomit; I11.0 Hypertensive heart disease with heart failure; H66.90 Otitis media, unspecified, unspecified ear; Z85.118 Personal history of other malignant neoplasm of bronchus and lung; Z86.718 Personal history of other venous thrombosis and embolism; E83.42 Hypomagnesemia; Z93.0 Tracheostomy status; Z96.642 Presence of left artificial hip joint; K57.30 Diverticulosis of large intestine without perforation or abscess without bleeding; I35.8 Other nonrheumatic aortic valve disorders; Z90.49 Acquired absence of other specified parts of digestive tract; Z87.891 Personal history of nicotine dependence; Z79.01 Long term (current) use of anticoagulants; Z85.818 Personal history of malignant neoplasm of other sites of lip, oral cavity, and pharynx; Z79.899 Other long term (current) drug therapy; Z85.89 Personal history of malignant neoplasm of other organs and systems
CPT/HCPCS: 36415; 36600; 71045; 71275; 74174; 80053; 80061; 81001; 82803; 83036; 83605; 83690; 83735; 83880; 84100; 84145; 84439; 84443; 84484; 85025; 85610; 85730; 87040; 87077; 87081; 87186; 87205; 87634; 87811; 93005; 94640; 96361; 96365; 96366; 96372; 99285; A4649; A9270; J0456; J0696; J1630; J1644; J2270; J3475; J7050; J7120; Q9967

== ENCOUNTER 2025-01-07 12:12 | Emergency (ER) | payer OTHER, MEDICAID, SELFPAY ==
[2025-01-07 12:22] VITALS: BP 100/61; PULSE 65; RESP 16; TEMP 36.8; O2SAT 94; BMI 23.3
--- NOTE | 2025-01-07 12:28 | XR_ITS ---
Examination: Abdomen AP single view Technique: AP portable supine abdomen, single view Exam date and time: January 07, 2025, 1306 hours INDICATIONS: Unknown position gastrostomy tube FINDINGS: Gastrostomy tube in the body the stomach satisfactory position, opacification of the stomach and small bowel but no extravasation of contrast IMPRESSION: Gastrostomy tube body of the stomach satisfactory position
--- NOTE | 2025-01-07 12:29 | EDNOTE_ITS ---
ED General RME/HPI General Chief complaint: General Adult/Misc Complain Stated complaint: GT PULLED OUT Time Seen by Provider: 01/07/25 12:17 Arrival date/time: 01/07/25 12:12 RME / HPI RME / HPI narrative: 84-year-old male patient with significant history of throat carcinoma, status post tracheostomy, G-tube placement, was brought in by family for dislodgment of G-tube. Patient G-tube was accidentally pulled out. Patient is using the G- tube for feeding and medication. Currently patient is not having any complaints Related Data Home Medications ?Medication ?Instructions ?Recorded ?Confirmed morphine concentrate 100 mg/5 mL 0.5 ml PO QID PRN Peter n 09/24/21 01/03/25 (20 mg/mL) oral solution midodrine 10 mg tablet 10 mg feeding tube TID 06/2001/03/25 Previous Rx's ?Medication ?Instructions ?Recorded melatonin 3 mg tablet 3 mg PO HS #60 tabs 06/22/24 amoxicillin 500 mg-potassium 1 tab PO TID 7 days #21 t abs 01/04/25 clavulanate 125 mg tablet apixaban 2.5 mg tablet (Eliquis) 5 mg (2 x 2.5 mg) G-t ube BID 01/04/25 history DVT 1 month #120 tabs doxycycline hyclate 100 mg tablet 100 mg PO BID Pneumo bill 7 days #14 01/04/25 tabs levothyroxine 25 mcg tablet 25 mcg PO ACBR Hypothyroid ism 1 01/04/25 month #30 tabs Allergies Allergy/AdvReac Type Severity Reaction Status Date / Time No Known Allergies Allergy Verified 01/07/25 12:14 Review of Systems Review of Systems Narrative Review of Systems: Review of system reviewed and within normal limits except mentioned in HPI ED Exam Narrative Physical exam: VITAL SIGNS: Reviewed. GENERAL APPEARANCE: Alert and interactive, follows commands, no acute distress, HEAD AND FACE: Non-traumatic. ENT: PERRL, pink conjunctivitis, eyelid no trauma, Mucous membrane moist. NECK: Supple, nontender, no nuchal rigidity. Status post tracheostomy CHEST: No tenderness, no crepitus, no paradoxical movement, no retractions. LUNGS: Clear, well ventilated, symmetric, no rales, no wheezing, no ronchi, no stridor, good breath sounds bilaterally. HEART: Regular rate, regular rhythm, no murmur, no gallops. ABDOMEN: Soft, positive bowel sounds, nondistended, no guarding, nontender, no rebound, no masses, G-tube placement site intact no bleeding noted nontender RECTAL: Deferred. GENITAL: Deferred. NEUROLOGICAL: Gross motor function intact sensory function intact, Appropriate for age. MUSCULOSKELETAL: low back nontender, full range of motion. EXTREMITIES: Nontender, full range of motion. SKIN: Color pink, dry, no rash, no lacerations, no abrasions, no contusions. LYMPHATICS: Deferred. Course Quality Measures none Orders Category Date Time Status XR abdomen 1V Stat Exams 01/07/25 12:28 Completed Vital Signs Vital signs: Vital Signs Temperature 98.2 F 01/07/25 12:22 Pulse Rate 65 01/07/25 12:22 Respiratory Rate 16 01/07/25 12:22 Blood Pressure 100/61 01/07/25 12:22 Pulse Oximetry (%) 94 L 01/07/25 12:22 Oxygen Delivery Method Room Air 01/07/25 12:22 Discharge Plan Plan Patient Disposition: HOME (Self Care) Discharge Disposition comment: Stable Prescriptions/Referrals Prescriptions/Med Rec: No Action morphine concentrate 100 mg/5 mL (20 mg/mL) solution 0.5 ml PO QID PRN (Reason: Pain) Patient Comments: TAKE 0.5 ML BY MOUTH EVERY 6 HOURS NEEDED midodrine 10 mg tablet 10 mg feeding tube TID Patient Comments: TAKE TWO TABLETS BY MOUTH THREE TIMES DAILY FOR THE HEART melatonin 3 mg Tablet 3 mg PO HS Qty: 60 0RF doxycycline hyclate 100 mg tablet 100 mg PO BID 7 Days Qty: 14 0RF amoxicillin-pot clavulanate 500-125 mg tablet 1 tab PO TID 7 Days Qty: 21 0RF levothyroxine 25 mcg Tablet 25 mcg PO ACBR 30 Days Qty: 30 0RF Eliquis 2.5 mg Tablet 5 mg G-tube BID 30 Days Qty: 120 0RF Referrals: Fabian Morales MD [Primary Care Provider, Family Practice] - In 1 week Problem List Clinical Impression: Dislodged gastrostomy tube Patient/Caregiver Discharge Instructions Discharge Activity: activity as tolerated Education Materials: ED Feeding Tube Replacement Additional Instructions: Thank you for the opportunity for serving you today. You are stable for discharged . You are advised to: Follow-up with your PCP in 1 to 2 days Return to ED for worsening of symptoms Increase oral fluids Okay to use the G-tube Print Language: Uzbek Stand Alone Forms: Shima Award Info., Patient Portal Info Letter GARRY/ANNIA Supervising Physician GARRY/ANNIA Supervising Physician: MD Devon MDM Narrative MDM hospital course (for use when minimal MDM required): 84-year-old male patient with significant history of throat carcinoma, status post tracheostomy, G-tube placement, was brought in by family for dislodgment of G-tube. Patient G-tube was accidentally pulled out. Patient is using the G-t ube for feeding and medication. Currently patient is not having any complaints I used G-tube fr 20 , replaced without any difficulty. X-ray of the abdomen showed G-tube in right position, no extravasation of the dye. Patient is stable for discharge home okay to use the G-tube
--- NOTE | 2025-01-07 12:34 | PC.NURSE ---
GT WAS RE INSERTED BY PROVIDER AT THIS TIME.
== END 2025-01-07 15:54 | disposition home or self-care (01) ==
PROVIDERS: Emergency Provider Family Medicine; PCP Family Medicine
DX: K94.23 Gastrostomy malfunction (principal); Z79.01 Long term (current) use of anticoagulants
CPT/HCPCS: 43762; 74018; 99283; Q9963

== ENCOUNTER 2025-03-15 13:25 | Outpatient (RCR) | payer MEDICARE, SELFPAY ==
[2025-03-14 15:11] LABS: Alanine Aminotransferase 27 U/L (10-49); Albumin, Serum 3.8 gm/dL (3.4-4.8); Albumin/Globulin Ratio 1.4 (1.2-2.2); Alkaline Phosphatase 106 U/L (46-116); Anion Gap 9 (7-16); Aspartate Amino Transferase 34 U/L (0-34); BUN/Creatinine Ratio 14 Ratio (12-20); Bilirubin,Total 0.6 mg/dL (0.3-1.2); Blood Urea Nitrogen 14 mg/dL (9-23); Calcium 8.7 mg/dL (8.3-10.6); Calcium (Corrected) 8.9 mg/dL (8.5-10.1); Carbon Dioxide 28.9 mMol/L (20.0-31.0); Chloride 105 mMol/L (98-107); Creatinine (Component) 1.0 mg/dL (0.6-1.3); Globulin 2.8 gm/dL (2.3-3.5); Glucose 136 mg/dL (74-106); Osmolality,Calculated 287 (275-295); Potassium 4.0 mMol/L (3.4-5.1); Sodium 143 mMol/L (136-145); Total Protein 6.6 gm/dL (5.7-8.2); eGFR > 60 See Note
[2025-03-14 17:31] LABS: Basophils # (Auto) 0.0 Thou/mm3 (0.0-0.2); Basophils % (Auto) 1 % (0-2.5); Eosinophils # (Auto) 0.1 Thou/mm3 (0.0-0.5); Eosinophils % (Auto) 3 % (0-10); Hematocrit 44.5 % (41.0-53.0); Hemoglobin 14.7 g/dL (13.5-16.0); Immature Granulocytes Auto 0.00 Thou/mm3 (0.00-0.00); Lymphocytes # (Auto) 0.8 Thou/mm3 (1.0-4.8); Lymphocytes % (Auto) 35 % (10-50); Mean Corpuscular HGB Conc 33.0 g/dl (31.0-37.0); Mean Corpuscular Hemoglobin 32.8 pg (25.0-35.0); Mean Corpuscular Volume 99 fL (80-100); Monocytes # (Auto) 0.2 Thou/mm3 (0.0-0.8); Monocytes % (Auto) 9 % (0-12); Neutrophils # (Auto) 1.2 Thou/mm3 (1.8-7.7); Neutrophils % (Auto) 53 % (37-80); Nucleated Red Blood Cell # 0.00 Thou/mm3 (0.00-0.00); Nucleated Red Blood Cell % 0 /100 WBC (0); Platelet Count 132 Thou/mm3 (140-440); RDW Standard Deviation 46.8 fL (35.1-43.9); Red Blood Count 4.48 Miln/mm3 (4.50-5.90); White Blood Count 2.2 Thou/mm3 (3.8-10.6)
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
== END 2025-03-30 23:59 | disposition home or self-care (01) ==
LOC: SCTC 13:25
PROVIDERS: PCP Family Medicine; Referring Provider Family Medicine; Visit Provider Internal Medicine Hematology & Oncology
DX: C10.3 Malignant neoplasm of posterior wall of oropharynx (principal); R91.8 Other nonspecific abnormal finding of lung field; Z92.21 Personal history of antineoplastic chemotherapy
CPT/HCPCS: 36591; 80053; 85025; 99212; A4216; J1642; G0463